=== PATIENT | female | born 1955 | race Hispanic/Latino ===

== ENCOUNTER 2016-10-15 10:21 | Outpatient (CLI) | payer OTHER | END 2016-10-15 10:22 | disposition home or self-care (01) | LOC: WCC 10:21 | PROVIDERS: ATTEND Family Medicine | DX: T81.89XD Other complications of procedures, not elsewhere classified, subsequent encounter (principal); Z89.421 Acquired absence of other right toe(s) | CPT/HCPCS: 97605 ==

== ENCOUNTER 2016-10-17 10:08 | Outpatient (CLI) | payer OTHER | END 2016-10-17 10:09 | disposition home or self-care (01) | LOC: WCC 10:08 | PROVIDERS: ATTEND Family Medicine | DX: T81.89XD Other complications of procedures, not elsewhere classified, subsequent encounter (principal); Z89.421 Acquired absence of other right toe(s) ==

== ENCOUNTER 2016-10-21 14:02 | Outpatient (CLI) | payer MEDICAID, OTHER | END 2016-10-21 14:03 | disposition home or self-care (01) | LOC: WCC 14:02 | PROVIDERS: ATTEND Family Medicine | DX: T81.89XD Other complications of procedures, not elsewhere classified, subsequent encounter (principal); T87.89 Other complications of amputation stump; Z89.421 Acquired absence of other right toe(s) | CPT/HCPCS: 97605 ==

== ENCOUNTER 2016-10-24 14:05 | Outpatient (CLI) | payer OTHER | END 2016-10-24 14:06 | disposition home or self-care (01) | LOC: WCC 14:05 | PROVIDERS: ATTEND Family Medicine | DX: T81.89XD Other complications of procedures, not elsewhere classified, subsequent encounter (principal); Z89.421 Acquired absence of other right toe(s) | CPT/HCPCS: 97605 ==

== ENCOUNTER 2016-10-28 14:04 | Outpatient (CLI) | payer OTHER ==
[~2016-10-28 14:04] MED LIST: Sodium Chloride 0.9% 15 ML NEB ONE
== END 2016-10-28 14:05 | disposition home or self-care (01) ==
LOC: WCC 14:04
PROVIDERS: ATTEND Family Medicine
DX: T81.89XD Other complications of procedures, not elsewhere classified, subsequent encounter (principal)
CPT/HCPCS: 97605; A4218

== ENCOUNTER 2016-10-31 14:31 | Outpatient (CLI) | payer MEDICAID, OTHER | END 2016-10-31 14:32 | disposition home or self-care (01) | LOC: WCC 14:31 | PROVIDERS: ATTEND Family Medicine | DX: T81.89XD Other complications of procedures, not elsewhere classified, subsequent encounter (principal); Z89.421 Acquired absence of other right toe(s) | CPT/HCPCS: 97605 ==

== ENCOUNTER 2016-11-04 14:06 | Outpatient (CLI) | payer OTHER ==
--- NOTE | 2016-11-04 16:09 | PRG ---
DATE OF SERVICE: 11/04/2016 HISTORY: Ms. Concepcion Cortez is a very pleasant 61-year-old who presents to the Wound Center for evalua tion of a wound of the right foot subsequent to amputation of the second, third, fourth, and fifth t oes and metatarsals on 09/06/[address] Ji Mclaughlin. Also at the time of surgery, the patient u nderwent wound VAC placement. Upon discharge from [facility], the patient wa s referred to the Wound Center for assistance with dressing changes of the wound VAC. The patient w as also discharged to home on Augmentin. PHYSICAL EXAMINATION: VITAL SIGNS: Temperature 98.3, pulse 90, respirations 18, blood pressure 181/81. Accu-Chek 219. EXTREMITIES: A wound of the right foot subsequent to amputation of the second, third, fourth, and f ifth toes and metatarsals is present. Granulation tissue is present within the wound margins. Nonv iable tissue present within the wound margins was debrided with an excisional full-thickness debride ment with the use of a curette. No purulent drainage is associated with the wound. No cellulitis o f the right foot is appreciated. No maceration of the skin of the periwound is noted. A posterior tibial pulse is easily palpable on the right. No significant edema of the right foot is present on exam today. No significant edema of the right foot is present on exam today. ASSESSMENT AND PLAN: 1. Right foot wound as described above, subsequent to amputation of the second, third, fourth, and fifth toes and metatarsals. Negative pressure therapy was initiated intraoperatively and will be co ntinued with dressing changes of the wound 2 times per week here in the Wound Center. I will see Ms Wong Cortez again in one week. 2. Diabetes mellitus. The patient's Accu-Chek in clinic today is 219. The patient has been remind ed that for optimal wound healing, her blood glucoses should remain below 150. 3. Hypertension.
== END 2016-11-04 14:07 | disposition home or self-care (01) ==
LOC: WCC 14:06
PROVIDERS: ATTEND Family Medicine
DX: T87.89 Other complications of amputation stump (principal); E11.9 Type 2 diabetes mellitus without complications; I10 Essential (primary) hypertension
CPT/HCPCS: 11042

== ENCOUNTER 2016-11-07 13:33 | Outpatient (CLI) | payer MEDICAID, OTHER | END 2016-11-07 13:34 | disposition home or self-care (01) | LOC: WCC 13:33 | PROVIDERS: ATTEND Family Medicine | DX: T87.89 Other complications of amputation stump (principal); Z89.421 Acquired absence of other right toe(s) | CPT/HCPCS: 97605 ==

== ENCOUNTER 2016-11-11 13:59 | Outpatient (CLI) | payer MEDICAID, OTHER ==
[2016-11-11] MEDS ORDERED: Sodium Chloride 0.9% 15 ML NEB ONE (16:57)
== END 2016-11-11 14:00 | disposition home or self-care (01) ==
LOC: WCC 13:59
PROVIDERS: ATTEND Family Medicine
DX: T81.89XD Other complications of procedures, not elsewhere classified, subsequent encounter (principal)
CPT/HCPCS: 97605; A4218

== ENCOUNTER 2016-11-14 14:32 | Outpatient (CLI) | payer OTHER ==
--- NOTE | 2016-11-14 15:56 | PRG ---
DATE OF SERVICE: 11/14/2016 HISTORY: Ms. Concepcion Cortez is a very pleasant 61-year-old who presents to the Wound Center for evalua tion of a wound of the right foot subsequent to amputation of the second, third, fourth, and fifth t oes and metatarsals on 09/06/[address] Ji Mclaughlin. Also at the time of surgery, the patient u nderwent wound VAC placement. Upon discharge from [facility], the patient wa s referred to the Wound Center for assistance with dressing changes of the wound VAC. The patient w as also discharged to home on Augmentin. PHYSICAL EXAMINATION: VITAL SIGNS: Temperature 97.4, pulse 97, respirations 18, blood pressure 138/81, Accu-Chek 205. EXTREMITIES: A wound of the right foot subsequent to amputation of the second, third, fourth, and f ifth toes and metatarsals is present. The dimensions of the wound are approximately 1.7 x 6.1 cm. Granulation tissue is present within the wound margins. Nonviable tissue present within the wound m argins was debrided with an excisional full-thickness debridement with the use of a curet. No purul ent drainage is associated with the wound. No cellulitis of the right foot is appreciated. No mace ration of the skin of the periwound is noted. A dorsalis pedis pulse is easily palpable on the righ t. No significant edema of the right foot is present on exam today. ASSESSMENT AND PLAN: 1. Right foot wound subsequent to amputation of the second, third, fourth, and fifth toes and metat arsals. Negative pressure therapy will be discontinued today. Dressing changes of Aquacel AG will be initiated. These dressing changes are to be performed 3 times per week after cleansing and irrig ation. A 4 x 4's, Kerlix, and an Miguel bandage will be utilized as secondary dressings. I will see Bhanu Cortez again in one week. The patient will be seen by Dr. Mclaughlin in 2 weeks. 2. Diabetes mellitus. The patient's Accu-Chek in clinic today is 205. The patient has been remind ed that for optimal wound healing, her blood glucoses should remain below 150. 4. Hypertension.
[2016-11-14] MEDS ORDERED: Lidocaine 4% Topical Sol 50 ML BOT ONE (16:25)
[2016-11-14] MEDS ORDERED: Sodium Chloride 0.9% 15 ML NEB ONE (16:25)
== END 2016-11-14 14:33 | disposition home or self-care (01) ==
LOC: WCC 14:32
PROVIDERS: ATTEND Family Medicine
DX: T81.89XD Other complications of procedures, not elsewhere classified, subsequent encounter (principal); E11.9 Type 2 diabetes mellitus without complications; I10 Essential (primary) hypertension; Z89.421 Acquired absence of other right toe(s)
CPT/HCPCS: 11042; A4218; J2001

== ENCOUNTER 2016-11-21 14:51 | Outpatient (CLI) | payer MEDICAID | END 2016-11-21 14:52 | disposition home or self-care (01) | LOC: LABBT 14:51 | PROVIDERS: ATTEND Specialist | DX: Z01.812 Encounter for preprocedural laboratory examination (principal); E11.621 Type 2 diabetes mellitus with foot ulcer; M86.8X7 Other osteomyelitis, ankle and foot ==

== ENCOUNTER 2016-11-22 17:46 | Emergency (ER) | payer MEDICAID | END 2016-11-22 21:19 | disposition home or self-care (01) | LOC: ERS 17:46 | DX: Z48.817 Encounter for surgical aftercare following surgery on the skin and subcutaneous tissue (principal); Z48.01 Encounter for change or removal of surgical wound dressing; F32.9 Major depressive disorder, single episode, unspecified; F41.9 Anxiety disorder, unspecified; I10 Essential (primary) hypertension; E11.9 Type 2 diabetes mellitus without complications; Z79.4 Long term (current) use of insulin; Z79.82 Long term (current) use of aspirin | CPT/HCPCS: 99282 ==

== ENCOUNTER → 2016-11-22 | Day surgery (SDC) | payer MEDICAID ==
[2016-11-21 15:36] VITALS: BMI 33.5
[~2016-11-22] MED LIST changes: +Fentanyl 100 MCG/2 ML VIAL ONE; +Midazolam HCl 2 mg/2 ml Vial ONE; +Piperacillin/Tazobactam 3.375 GM in Sodium Chloride 0.9% 100 ML IVPB SCH; +Propofol 500 MG/50 ML VIAL ONE; -Sodium Chloride 0.9% 15 ML NEB ONE
--- NOTE | 2016-11-22 06:16 | HP ---
HISTORY OF PRESENT ILLNESS: Concepcion Cortez is a 61-year-old female, diabetic, who I am seeing f or right foot problem in outpatient wound care [facility]. She has had a wound VAC, which has bee n discontinued. She had amputation of her second, third, fourth and fifth toes and metatarsals on 0 09/05/2016 due to a necrotizing diabetic soft tissue infection. This wound is almost completely heal ed. She has developed an ulceration of her left fifth toe laterally. This ulceration evaluated tovalorie potts in wound care. It reveals that extends out of the bone. The toe is edematous and red. The fore foot is normal. Plan is for amputation of the left fifth toe to the proximal phalanx left open for healing by secondary intention. She has a wound VAC from right foot still available for [facility]. We will apply that to her left foot, and I expect that she will need this for 1 to 2 weeks and the n we will be able to discontinue it. ALLERGIES: CODEINE. PAST SURGICAL HISTORY: Right breast biopsy; cholecystectomy; left breast biopsy; right and left eye surgeries, 9 childbirth, partial amputation right foot toes 2, 3, 4 and 5 and metatarsals as noted above healed secondarily and was completely healed. No evidence of PAD. PAST MEDICAL HISTORY: Insulin-dependent diabetes mellitus, hypertension, obesity, and metabolic syn drome. MEDICATIONS: Levemir insulin 60 units subcutaneously a day, metformin 1000 mg twice daily, fluoxeti ne 20 mg once a day, aspirin 81 mg a day, quinapril 20/25 mg once a day, Ultram p.r.n. pain, amlodip ine 10 mg a day. The patient followed by [facility]. REVIEW OF SYSTEMS: Noncontributory. PHYSICAL EXAMINATION: HEENT: Unremarkable. LUNGS: Clear to auscultation. CARDIAC: Regular rate and rhythm without murmur or gallop. ABDOMEN: Soft, nontender, no masses, obese. EXTREMITIES: Unremarkable. Palpable femoral, popliteal and pedal pulses. She has chronic venous s tasis disease with varicosities. She has palpable pedal pulses. Right foot wound is almost complet sabino healed with slight amount of granulation tissue superiorly. She has good foot coverage. She [place] s had amputation of second, third, fourth, and fifth toes and metatarsals. No evidence of infection . Left foot reveals left fifth toe laterally has ulceration to the bone. On probe by Q-tip, it is red , swollen, and edematous. ASSESSMENT AND PLAN: 1. Cellulitis, diabetic infection, left small toe with osteomyelitis. Plan: Amputation of the left small toe through the proximal phalanx. Wound VAC application. The patient understands the risks and benefits and consents. She will continue wound care postoperatively. 2. Insulin dependent diabetes mellitus. 3. Hypertension.
[2016-11-22 10:06] LABS: #Eosinphils 0.2 thou/uL (0.0-0.7); #Lymphocytes 2.3 thou/uL (1.20-3.40); #Monocytes 0.7 thou/uL (0.11-0.59); #Neutrophils 5.3 thou/uL (1.40-6.50); %Basophils 0.5 % (0.0-1.0); %Eosinophils 2.1 % (0.0-10.0); %Lymphocytes 27.1 % (21.0-51.0); %Monocytes 8.6 % (0.0-10.0); Hematocrit 35.7 % (36.0-47.0); Mean Platelet Volume 7.6 fL (7.4-10.4); Red Blood Cell (RBC) Count 3.93 mill/uL (4.20-5.40); White Blood Cell (WBC) Count 8.6 thou/uL (4.8-10.8)
[2016-11-22 10:28] LABS: Anion Gap 14 mmol/L (10-20); BUN (Urea Nitrogen) 25 mg/dL (9.8-20.1); Calc. Creatinine Clearance 63 mL/min (70-130); Calcium 9.6 mg/dL (7.8-10.44); Carbon Dioxide 22 mmol/L (23-31); Chloride 108 mmol/L (98-107); Estimated GFR-MDRD 46
--- NOTE | 2016-11-22 13:45 | OP ---
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 PROCEDURE PERFORMED: Amputation of left small toe through the proximal phalanx. Wound healing by s econdary intention. Wound care team placed a wound VAC for outpatient Wound Care. SURGEON: Ji Mclaughlin M.D. ANESTHESIA: Intravenous sedation. PROCEDURE IN DETAIL: The patient taken to the operating room where under intravenous sedation, left lower extremity was prepared with chloraprep, draped in routine fashion. Incision was made for amp utation of left small toe through the proximal phalanx with a fishmouth type incision. Incision car ried through skin and subcutaneous tissue with a 15 blade scalpel, with the bone resected with the b one cutter and proximally with the rongeurs, debriding connective tissue sharply. Hemostasis gained with the cautery. There was excellent bleeding. Wound irrigated, hemostasis noted. Wound care te am arrived and placed a wound VAC. The patient tolerated the procedure well.
== END ==
LOC: SDC 09:07
PROVIDERS: ATTEND Specialist
PROC: 0QBR0ZZ Excision of Left Toe Phalanx, Open Approach (ICD-10-PCS; principal; 2016-11-22)
DX: E11.621 Type 2 diabetes mellitus with foot ulcer (principal); L97.526 Non-pressure chronic ulcer of other part of left foot with bone involvement without evidence of necrosis; E11.40 Type 2 diabetes mellitus with diabetic neuropathy, unspecified; I10 Essential (primary) hypertension; E66.9 Obesity, unspecified; Z68.33 Body mass index [BMI] 33.0-33.9, adult; Z88.5 Allergy status to narcotic agent; Z79.4 Long term (current) use of insulin; Z79.82 Long term (current) use of aspirin; Z79.899 Other long term (current) drug therapy; Z90.49 Acquired absence of other specified parts of digestive tract; Z89.411 Acquired absence of right great toe; Z98.890 Other specified postprocedural states
CPT/HCPCS: 36415; 80048; 85025; 88305; J2250; J2543; J2704; J3010; J3370; J7050

== ENCOUNTER 2016-11-25 14:06 | Outpatient (CLI) | payer MEDICAID | END 2016-11-25 14:07 | disposition home or self-care (01) | LOC: WCC 14:06 | PROVIDERS: ATTEND Family Medicine | DX: T87.89 Other complications of amputation stump (principal); Z89.411 Acquired absence of right great toe; Z89.421 Acquired absence of other right toe(s) | CPT/HCPCS: 97605 ==

== ENCOUNTER 2016-11-28 11:07 | Outpatient (CLI) | payer MEDICAID | END 2016-11-28 11:08 | disposition home or self-care (01) | LOC: WCC 11:07 | PROVIDERS: ATTEND Family Medicine | DX: T81.89XD Other complications of procedures, not elsewhere classified, subsequent encounter (principal); Z89.421 Acquired absence of other right toe(s) | CPT/HCPCS: 97605 ==

== ENCOUNTER 2016-12-02 11:16 | Outpatient (CLI) | payer MEDICAID ==
--- NOTE | 2016-12-02 11:56 | PRG ---
DATE OF SERVICE: 12/02/2016 WOUND EVALUATION IN WOUND CARE CLINIC Concepcion Cortez is doing well today. The amputation site for the left fifth toe is granulating. Wou nd VAC is discontinued, silver dressings applied. She can wash this with soap and water every 2-3 d ays and apply silver dressing. She can follow up in my office in about 1-2 weeks. The right foot h as almost healed in addition. She has a small wound.
== END 2016-12-02 11:17 | disposition home or self-care (01) ==
LOC: WCC 11:16
PROVIDERS: ATTEND Family Medicine
DX: T81.89XD Other complications of procedures, not elsewhere classified, subsequent encounter (principal); Z89.422 Acquired absence of other left toe(s)
CPT/HCPCS: 97602

== ENCOUNTER 2016-12-12 14:48 | Outpatient (CLI) | payer MEDICAID, OTHER ==
--- NOTE | 2016-12-12 17:07 | PRG ---
DATE OF SERVICE: 12/12/2016 HISTORY: Ms. Concepcion Cortez is a very pleasant 61-year-old who presents to the Wound Center for evaluation of a wound of the right foot subsequent to amputation of the second, third, fourth, and fifth toes and metatarsals on 09/[address] Ji Mclaughlin. Also at the time of surgery, the patient underwent wound VAC placement. Upon discharge from [facility], the patient was referred to the Wound Center for assistance with dressing changes of the wound VAC. The patient was also discharged to home on Augmentin. Ms. Cortez has completed a course of negative pressure therapy for her right foot wound. She is presently performing dressing changes of Aquacel AG 3 times per week after cleansing and irrigation. PHYSICAL EXAMINATION: VITAL SIGNS: Temperature 97.7, pulse 106, respirations 18, blood pressure 185/ 86. Accu-Chek 88. EXTREMITIES: A wound of the right foot subsequent to amputation of the second, third, fourth, and fifth toes and metatarsals is present. The dimensions of the wound are approximately 8.8 x 0.3 cm. Nonviable tissue present within the wound margins was debrided with an excisional full-thickness debridement with the use of a curette. Callus and desiccated tissue at the periphery of the wound were eliminated with the use of scissors. No purulent drainage is associated with the wound. No cellulitis of the right foot is appreciated. No maceration of the skin of the periwound is noted. A dorsalis pedis pulse is easily palpable on the right. No significant edema of the right foot is present on exam today. ASSESSMENT AND PLAN: 1. Right foot wound subsequent to amputation of the second, third, fourth, and fifth toes and metatarsals. Dressing changes of Aquacel AG will be continued 3 times per week or alternatively on a daily basis after cleansing and irrigation. 4 x 4s and Kerlix will be utilized as secondary dressings. The wound has almost healed completely, and Ms. Cortez will be discharged from clinic today with follow up on a p.r.n. basis. 2. Diabetes mellitus. The patient's Accu-Chek in clinic today is 88. The patient has been reminded that for optimal wound healing, her blood glucoses should remain below 150. 3. Hypertension. MTDD
== END 2016-12-12 14:49 | disposition home or self-care (01) ==
LOC: WCC 14:48
PROVIDERS: ATTEND Family Medicine
DX: T81.89XD Other complications of procedures, not elsewhere classified, subsequent encounter (principal); E11.9 Type 2 diabetes mellitus without complications; I10 Essential (primary) hypertension
CPT/HCPCS: 11042

== ENCOUNTER 2018-11-13 12:17 | Outpatient (CLI) | payer MEDICARE ==
--- NOTE | 2018-11-13 13:34 | MMO ---
Bilateral MAMMO Bilat Screen [facility]. CLINICAL HISTORY: Patient is 63 years old and is seen for screening. The patient has no family history of breast cancer. The patient has no personal history of cancer. The patient has a history of bilateral Excisional Biopsy in 2000 - benign. VIEWS: The views performed were: bilateral craniocaudal with tomosynthesis and bilateral mediolateral oblique with tomosynthesis. FILMS COMPARED: The present examination has been compared to prior imaging studies performed at [facility] on 05/11/2002, 01/10/2006, 01/07/2007 and 11/28/2009. This study has been interpreted with the assistance of computer-aided detection. MAMMOGRAM FINDINGS: There are scattered fibroglandular densities. Finding 1: There are stable benign appearing calcifications seen in both breasts. Finding 2: There are stable benign appearing densities seen in both breasts. There are no suspicious masses, suspicious calcifications, or new areas of architectural distortion. IMPRESSION: THERE IS NO MAMMOGRAPHIC EVIDENCE OF MALIGNANCY. A ROUTINE FOLLOW-UP MAMMOGRAM IN 1 YEAR IS RECOMMENDED. THE RESULTS OF THIS EXAM WERE SENT TO THE PATIENT. ACR BI-RADS Category 2 - Benign finding MAMMOGRAPHY NOTE: 1. A negative mammogram report should not delay a biopsy if a dominant of clinically suspicious mass is present. 2. Approximately 10% to 15% of breast cancers are not detected by mammography. 3. Adenosis and dense breasts may obscure an underlying neoplasm. Reported by: MOISES HERNANDEZ MD Electonically Signed: [id number]
== END 2018-11-13 12:18 | disposition home or self-care (01) ==
LOC: BICMAMMO 12:17
PROVIDERS: ATTEND Nurse Practitioner Family
DX: Z12.31 Encounter for screening mammogram for malignant neoplasm of breast (principal); Z91.89 Other specified personal risk factors, not elsewhere classified
CPT/HCPCS: 77063; 77067

== ENCOUNTER 2019-10-21 02:17 | Inpatient (IN) | payer MEDICARE, OTHER ==
[2019-10-21] MEDS ORDERED: Cefepime 2 GM VIAL ONE (02:33)
[2019-10-21] MEDS ORDERED: Vancomycin 1 GM/200 ML BAG ONE (02:33)
[2019-10-21 02:51] LABS: Hemoglobin 10.8 g/dL (12.0-16.0); Mean Corpuscular HGB CONC 28.3 g/dL (32.0-36.0); Mean Corpuscular Hemoglobin 26.6 pg (27.0-31.0); Mean Platelet Volume 8.4 fL (7.4-10.4); Platelet Count 621 thou/uL (130-400); RBC Distribution Width 13.8 % (11.5-14.5); Red Blood Cell (RBC) Count 4.06 mill/uL (4.20-5.40); White Blood Cell (WBC) Count 24.4 thou/uL (4.8-10.8)
[2019-10-21 03:01] LABS: ALT (SGPT) 16 U/L (8-55); AST (SGOT) 51 U/L (5-34); Albumin 2.6 g/dL (3.4-4.8); Alkaline Phosphatase 211 U/L (40-110); Anion Gap 21 mmol/L (10-20); BUN (Urea Nitrogen) 36 mg/dL (9.8-20.1); Bilirubin, Total 0.7 mg/dL (0.2-1.2); Calc. Creatinine Clearance 0 mL/min (70-130); Calcium 9.7 mg/dL (7.8-10.44); Carbon Dioxide 23 mmol/L (23-31); Chloride 97 mmol/L (98-107); Estimated GFR-MDRD 23; Globulin 6.6 g/dL (2.4-3.5); Potassium 4.6 mmol/L (3.5-5.1); Protein, Total 9.2 g/dL (6.0-8.3); Sodium 136 mmol/L (136-145)
[2019-10-21 03:10] LABS: Band 1 % (5-11); Hypochromia SLIGHT = 6-15 cells (100X) (0-5/hpf); Lymphocytes 4 % (21-51); MDiff Complete? YES; Monocytes 6 % (0-10); Neutrophil 89 % (42-75); Platelet Morphology Comment Appears Increased
[2019-10-21 03:16] LABS: Glucose 796 mg/dL (80-115)
[2019-10-21 03:40] LABS: Bacteria/HPF 3+ HPF (None Seen); Bilirubin Negative (Negative); Blood, Urine Trace (Negative); Clarity Turbid (Clear); Glucose, Urine (Dipstick) Greater than 1000 mg/dL (Negative); Ketone, Urine Trace mg/dL (Negative); Leukocyte Negative Leu/uL (Negative); Nitrite Negative (Negative); Protein, Urine (Dipstick) 30 mg/dL (Neg-Trace); RBC/HPF 0-3 HPF (0-3); Specific Gravity, Urine 1.025 (1.002-1.036); Squamous Epithelial 0-3 HPF (0-3); Urobilinogen Normal mg/dL (Less than 2); WBC/HPF 0-3 HPF (0-3); pH, Urine 5.5 (5.0-9.0)
[2019-10-21] MEDS ORDERED: HumaLOG 300 UNITS/3 ML VIAL ONE (04:31)
[2019-10-21] MEDS ORDERED: Insulin Regular 300 UNITS/3 ML VIAL ONE (04:36)
[2019-10-21] MEDS ORDERED: HUMULIN R 100 UNITS in Sodium Chloride 0.9% 100 ML IVPB SCH ×2 (04:45→06:30)
[2019-10-21] MEDS ORDERED: Fentanyl 100 MCG/2 ML VIAL ONE (04:52)
[2019-10-21] MEDS ORDERED: Lidocaine 2% Jelly 5 ML TUBE ONE (04:52)
[2019-10-21] MEDS ORDERED: SUGAMMADEX SODIUM 500 MG/5 ML VIAL ONE (05:46)
[2019-10-21] MEDS ORDERED: Promethazine HCl 25 MG/ML VIAL IM PRN (06:00)
[2019-10-21] MEDS ORDERED: Promethazine HCl 25 MG/ML VIAL SLOW IVP PRN (06:00)
[2019-10-21] MEDS ORDERED: Ondansetron HCl/PF 4 MG/2 ML Vial IVP PRN (06:00)
[2019-10-21] MEDS ORDERED: NS 0.9% w/ 20 MEQ KCL 1,000 ML IV PRN ×2 (06:28)
[2019-10-21] MEDS ORDERED: Electrolyte Replacement Protoc 1 EACH EACH IVPB PRN (06:28)
[2019-10-21] MEDS ORDERED: Sodium Chloride 0.9% 1,000 ML IV PRN ×4 (06:28)
[2019-10-21] MEDS ORDERED: Dextrose 5 %-0.45 % NaCl 1,000 ML IV PRN (06:28)
[2019-10-21] MEDS ORDERED: D5 1/2 NS w/20 mEq KCL 1,000 ML IV PRN (06:28)
[2019-10-21] MEDS ORDERED: cloNIDine 0.1 MG TAB PO PRN (06:29)
[2019-10-21] MEDS ORDERED: Acetaminophen 325 MG TAB PO PRN (06:29)
[2019-10-21] MEDS ORDERED: Promethazine HCl 12.5 MG in Sodium Chloride 0.9% 50 ML IVPB PRN (06:29)
[2019-10-21] MEDS ORDERED: [UNRECOGNIZED DRUG - REMARK] IVPB PRN (06:29)
[2019-10-21] MEDS ORDERED: Guaifenesin DM 100-10/5 ML UDCUP PO PRN (06:29)
[2019-10-21] MEDS ORDERED: Morphine 2 MG/ML VIAL SLOW IVP PRN (06:29)
[2019-10-21] MEDS ORDERED: HYDROcodone/Acetaminophen 5/325 mg Tablet PO PRN (06:29)
[2019-10-21] MEDS ORDERED: Ondansetron PF 4 MG/2 ML Vial IVP PRN (06:29)
[2019-10-21] MEDS ORDERED: Labetalol HCl 100 MG/20 ML VIAL SLOW IVP PRN (06:29)
--- NOTE | 2019-10-21 06:29 | CON ---
DATE OF CONSULTATION: REASON FOR CONSULT: Sepsis with wet gangrene of the left foot. HISTORY OF PRESENT ILLNESS: Ms. Cortez is a 64-year-old diabetic woman, who was brought by EMS to the hospital after her daughter called due to worsening infection and pain in her left foot. The patient is unable to give a reliable history, but the family reports that she has been sick and unable to walk for at least the past week. Her daughter reports that when she saw her last week, her blood sugars were in the 400s and she urged her to come to the hospital, but her mother refused at that time. When her other daughter came to visit her tonight, the patient appeared much worse, so they called EMS to come get her. The patient herself is able to tell me who she is and where she is and even what day and month it is, but she is unable to tell me exactly how long she has had discoloration and pain in her foot. She had obvious wet gangrene on examination in the emergency room as well as signs of sepsis, so a surgical consultation was requested. Her daughter reports that she has not been taking her medications as prescribed and that she has a long history of noncompliance with dietary and medication recommendations. The patient herself denies any fevers or chills and complains only of pain and drainage from her left foot. PAST MEDICAL HISTORY: 1. Diabetes, chronically uncontrolled and acutely worse. 2. Hypertension. 3. The patient reports that she has had a stroke in the past, but denies any history of heart attack or heart failure or arrhythmia. PAST SURGICAL HISTORY: Open cholecystectomy and cataract surgery. Multiple toe amputations by Dr. Mclaughlin including the left small toe and 2nd, 3rd, 4th and 5th toes on the right. SOCIAL HISTORY: The patient denies tobacco, drug, or alcohol use. She lives with her and her granddaughter. ALLERGIES: THE PATIENT DENIES ANY ALLERGIES, BUT THE CHART LISTS A RASH WITH CODEINE. MEDICATIONS: She is unable to tell me most of her medications, but states that she takes 1. Metformin. 2. NovoLog and insulin. 3. She thinks she is on a blood thinner, but is unable to tell me which one. The family reports that she has not been taking any of her medications recently, however. REVIEW OF SYSTEMS: Ten system review of systems is limited due to the patient's delirium. She is somewhat inconsistent in her report, but she does consistently deny fevers or chills, chest pain, cough, or shortness of breath. Review of systems is otherwise negative except per HPI. PHYSICAL EXAMINATION: VITAL SIGNS: Temperature 98.7, heart rate 106, blood pressure 165/92, respirations 23, 98% saturated on room air. GENERAL: Reveals a flushed, ill-appearing woman in moderate distress, moving around in the bed and having difficulty focusing on the conversation. She is oriented to self, place, and time and situation, but is unable to answer complex questions. HEENT: Unremarkable. NECK: Supple without lymphadenopathy or thyroid nodules. Extraocular movements are normal and symmetric. Facial movement is symmetric. HEART: Tachycardic, but regular. I do not appreciate any murmurs, rubs, or gallops. LUNGS: Are clear to auscultation bilaterally with good air entry. ABDOMEN: Soft, nontender, nondistended with a healed right subcostal incision. EXTREMITIES: Warm and well perfused. The patient is unable to tolerate palpation of her left foot, though pedal pulses could not be appreciated. She is also moving about in the bed quite a bit, so popliteal and femoral pulses are somewhat difficult to palpate but appear to be present. Her left foot has gangrene of multiple toes, first through third, with gangrene extending onto the plantar forefoot, boggy, very tender, with open draining wound and odor. The remaining foot is red and swollen. However, she does not have any crepitus above the ankle and no tenderness to palpation at the ankle or calf. NEURO: Limited due to patient's mental status, but appears to have intact sensation to all four extremities. She has healed amputation sites on the right and left foot. PSYCHIATRIC: Alert and oriented but unable to give a consistent recent history. LABORATORY DATA: White count is markedly elevated at 24,000 with a left shift. Platelets are also elevated at 621. Hemoglobin of 10.8 and hematocrit of 38.2. Creatinine is elevated at 2.12. She appears to have chronic mild elevation of her creatinine in the low 1s in 2017, but more recent labs are not available. BUN is elevated at 36. Electrolytes are otherwise unremarkable. Alkaline phosphatase is elevated at 211 and AST is mildly elevated at 51. Lactic acid is elevated at 3.6, and C-reactive protein is elevated at 35.44. Troponin is normal at 0.024. Blood sugar was 796 and urine glucose was greater than a 1000 with only trace ketones. Beta hydroxybutyrate was elevated at 1.97. ASSESSMENT: Wet gangrene causing sepsis and delirium in an uncontrolled diabetic patient. She is going to be admitted to the Medicine Service for management of her uncontrolled hyperglycemia and acute renal insufficiency, but she does require emergent amputation of her left foot. Due to the uncontrolled infection, I plan to perform a guillotine amputation to clear the source of infection with plans to return at a later day when she is more clinically stable to perform a closed below-knee amputation. The patient understands the situation and the recommendation for surgery and is willing to proceed. I have also discussed the situation with her daughter who is in the car in the parking lot, and she has given verbal consent as well on her behalf and on behalf of the patient's , her father. All of their questions were answered. She is going to be continued on IV antibiotics and an insulin drip. The family is going to obtain a medication list for us later today, although theyreport the patient has not been taking these as prescribed. Job ID: [id number] [facility]
[2019-10-21] MEDS ORDERED: Electrolyte Replacement Protoc 1 EACH EACH FS SCH (06:30)
--- NOTE | 2019-10-21 06:42 | PDOC.HHP ---
Hospitalist HPI - History of Present Illness L foot wound History of Present Illness: Patient is a 64 year old male with PMH DM, HTN who presents to ED for fall at home, L foot wound with change in appearance, family noticed changes in patient for about a week. There was gangrene and drainage from L foot, patient has had R BKA previously. In ED, severe necrosis noted in L 1-3rd toes, concerning enough to have emergent surgery consult, Dr Ortiz evaluated patient and took for emergency amputation. I am seeing patient in [facility] after guillotine amputation. Labs in ED were concerning for sugar in 700s, anion gap 21, Cr 2.12 , WBC 24, ;lactic acid 3.6. Patinet was presumed to be in [facility] vs DKA, started on insulin drip intraoperatively and given broad spectrum antibiotics, I am asked to admit patient from [facility] for DKA and sepsis s/p L foot amputation. Dr Ortiz plans to take patient back for second surgery once more medically stable. Patient is calm, making jokes, no pain. Denies chest pain/shortness of breath. Hospitalist ROS - Review of Systems Constitutional: denies: fever, chills, sweats, weakness, malaise, other Eyes: denies: pain, vision change, conjunctivae inflammation, eyelid inflammation, redness, other ENT: denies: ear pain, ear discharge, nose pain, nose discharge, nose congestion , mouth pain, mouth swelling, throat pain, throat swelling, other Respiratory: denies: cough, dry, shortness of breath, hemoptysis, SOB with excertion, pleuritic pain, sputum, wheezing, other Cardiovascular: denies: chest pain, palpitations, orthopnea, paroxysmal noc. dyspnea, edema, light headedness, other Gastrointestinal: denies: nausea, vomiting, abdominal pain, diarrhea, constipation, melena, hematochezia, other Genitourinary: denies: dysuria, frequency, incontinence, hematuria, retention, other Musculoskeletal: reports: foot pain (see HPI). denies: neck pain, shoulder pain , arm pain, back pain, hand pain, leg pain, other Skin: denies: rash, lesions, taco, bruising, other Neurological: denies: weakness, numbness, incoordination, change in speech, confusion, seizures, other All other systems reviewed; all pertinent +/- noted in HPI/Subj - Medication Medications: reviewed, see admission documents for list Hospitalist History - Past Medical History Other Medical History: DM, HTN - Past Surgical History Past Surgical History: reports: Cholecystectomy Other Surgical History: R partial foot amputation - Family History Family History: reports: no pertinent history - Social History Alcohol: reports: None Drugs: reports: none - Exam General Appearance: NAD, awake alert Eye: PERRL, anicteric sclera ENT: normocephalic atraumatic, no oropharyngeal lesions, moist mucosa Neck: supple, symmetric, no JVD, no thyromegaly, no lymphadenopathy, no carotid bruit Heart: RRR, no murmur, no gallops, no rubs, normal peripheral pulses Respiratory: CTAB, no wheezes, no rales, no ronchi, normal chest expansion, no tachypnea, normal percussion Gastrointestinal: soft, non-tender, non-distended, normal bowel sounds, no palpable masses, no hepatomegaly, no splenomegaly, no bruit Extremities: no cyanosis, no clubbing, no edema Extremities - other findings: R foot old foot amputation, L foot surgical dressing Skin: normal turgor, no lesions, no rashes Neurological: cranial nerve grossly intact, normal sensation to touch, no weakness, no focal deficits, no new deficit Musculoskeletal: normal tone, normal strength, no muscle wasting Psychiatric: normal affect, normal behavior, A&O x 3 Hospitalist Results - Labs Result Diagrams: 10/21/19 02:30 10/21/19 02:30 Lab results: WBC 24.4 thou/uL (4.8-10.8) H 10/21/19 02:30 Hgb 10.8 g/dL (12.0-16.0) L 10/21/19 02:30 Hct 38.2 % (36.0-47.0) 10/21/19 02:30 MCV 94.0 fL (78.0-98.0) 10/21/19 02:30 Plt Count 621 thou/uL (130-400) H 10/21/19 02:30 Band Neuts % (Manual) 1 % (5-11) L 10/21/19 02:30 ESR Westergren 59 mm/hr (Less than 30) 10/21/19 02:30 Sodium 136 mmol/L (136-145) 10/21/19 02:30 Potassium 4.6 mmol/L (3.5-5.1) 10/21/19 02:30 Chloride 97 mmol/L (98-107) L 10/21/19 02:30 Carbon Dioxide 23 mmol/L (23-31) 10/21/19 02:30 BUN 36 mg/dL (9.8-20.1) H 10/21/19 02:30 Creatinine 2.12 mg/dL (0.6-1.1) H 10/21/19 02:30 Glucose 796 mg/dL (80-115) H* 10/21/19 02:30 Lactic Acid 3.6 mmol/L (0.5-2.2) H 10/21/19 02:30 Calcium 9.7 mg/dL (7.8-10.44) 10/21/19 02:30 Total Bilirubin 0.7 mg/dL (0.2-1.2) 10/21/19 02:30 AST 51 U/L (5-34) H 10/21/19 02:30 ALT 16 U/L (8-55) 10/21/19 02:30 Alkaline Phosphatase 211 U/L (40-110) H 10/21/19 02:30 Troponin I 0.024 ng/mL (< 0.028) 10/21/19 02:42 C-Reactive Protein 35.44 mg/dL (= or < 0.5) H 10/21/19 02:30 Serum Total Protein 9.2 g/dL (6.0-8.3) H 10/21/19 02:30 Albumin 2.6 g/dL (3.4-4.8) L 10/21/19 02:30 Urine Ketones Trace mg/dL (Negative) A 10/21/19 03:05 Urine Blood Trace (Negative) A 10/21/19 03:05 Urine Nitrite Negative (Negative) 10/21/19 03:05 Ur Leukocyte Esterase Negative Randal/uL (Negative) 10/21/19 03:05 Urine RBC 0-3 HPF (0-3) 10/21/19 03:05 Urine WBC 0-3 HPF (0-3) 10/21/19 03:05 Ur Squamous Epith Cells 0-3 HPF (0-3) 10/21/19 03:05 Urine Bacteria 3+ HPF (None Seen) A 10/21/19 03:05 Additional comment: all labs, imaging reports, ED documents reviewed Hospitalist H&P A/P - Plan Plan: Patient is a 64 year old male with PMH DM, HTN who presents to ED for fall at home, L foot wound with change in appearance. # L foot gangrene s/p amputation by Dr Ortiz # sepsis # DKA # history of HTN, anxiety, depression Gangrene of L foot, Dr Ortiz evaluated patient in ED and took for emergency amputation. Labs in ED were concerning for sugar in 700s, anion gap 21, Cr 2.12 , WBC 24, lactic acid 3.6. Patinet was presumed to be in [facility]HS vs DKA, started on insulin drip intraoperatively and given broad spectrum antibiotics. Dr Ortiz plans to take patient back for second surgery once more medically stable. - admit to CCU - inslin drip protocol - consult vanc/zosyn - follow culture results - consult pulmonary/CC medicine
--- NOTE | 2019-10-21 07:17 | RAD ---
LEFT FOOT 2 VIEWS: Date: 10/21/2019 INDICATION: Diabetic female with history of right foot amputation, now with new left foot infection. FINDINGS: There is extensive soft tissue gas within the plantar and dorsal aspects of the forefoot. There is pa rtial ray amputation of the fifth digit through its proximal phalanx. There is scattered osteoarthrit ic change of the forefoot and midfoot. Enthesopathic change seen off the calcaneus. There is a transv ersely oriented fracture involving the distal phalanx of the great toe. IMPRESSION: 1. Extensive soft tissue gas of the forefoot suspicious for soft tissue infection. 2. Minimally displaced distal phalangeal fracture of the left great toe. 3. Partial ray amputation of the small digit through the proximal phalangeal base. POS: BH
[2019-10-21] MEDS ORDERED: Amlodipine 10 MG TAB PO SCH (09:00)
[2019-10-21 09:03] LABS: Lactic Acid 3.8 mmol/L (0.5-2.2)
[2019-10-21 09:04] VITALS: BMI 30.6
[2019-10-21 09:11] LABS: Anion Gap 15 mmol/L (10-20); BUN (Urea Nitrogen) 33 mg/dL (9.8-20.1); Calc. Creatinine Clearance 44 mL/min (70-130); Calcium 8.7 mg/dL (7.8-10.44); Carbon Dioxide 21 mmol/L (23-31); Chloride 111 mmol/L (98-107); Estimated GFR-MDRD 36; Glucose 204 mg/dL (80-115); Potassium 3.6 mmol/L (3.5-5.1); Sodium 143 mmol/L (136-145)
[2019-10-21] MEDS ORDERED: PHENYLEPHRINE-NS 100 MCG/ML 10 ML SYRINGE ONE (10:12)
[2019-10-21] MEDS ORDERED: Ondansetron PF 4 MG/2 ML Vial ONE (10:12)
[2019-10-21] MEDS ORDERED: Lidocaine 1% PF 5 ML VIAL ONE (10:12)
[2019-10-21] MEDS ORDERED: Rocuronium Bromide 10 MG/ML (10ML VIAL) ONE (10:12)
[2019-10-21] MEDS ORDERED: PROPOFOL 200 MG/20 ML VIAL ONE (10:12)
[2019-10-21] MEDS: Famotidine 20 MG TAB PO SCH (10:20)
[2019-10-21] MEDS: FLUoxetine HCl 10 MG CAP PO SCH (10:22)
[2019-10-21] MEDS: Heparin 5,000 UNITS/ML VIAL SC SCH ×3 (10:23→20:37)
[2019-10-21] MEDS: Sodium Chloride 0.9% 1,000 ML IV SCH ×2 (10:42→18:02)
[2019-10-21] MEDS ORDERED: Dextrose 5% in Water 1,000 ML IV PRN (11:35)
[2019-10-21] MEDS ORDERED: Dextrose 50% Abboject 50 ML SYRINGE IVP PRN (11:35)
[2019-10-21] MEDS: Piperacillin/Tazobactam 3.375 GM in Sodium Chloride 0.9% 100 ML IVPB SCH ×3 (12:19→23:54)
[2019-10-21] MEDS: Insulin Regular 300 UNITS/3 ML VIAL SC PRN ×3 (12:37→20:38)
[2019-10-21 15:04] LABS: Anion Gap 14 mmol/L (10-20); BUN (Urea Nitrogen) 32 mg/dL (9.8-20.1); Calc. Creatinine Clearance 54 mL/min (70-130); Calcium 7.9 mg/dL (7.8-10.44); Carbon Dioxide 19 mmol/L (23-31); Chloride 114 mmol/L (98-107); Estimated GFR-MDRD 45; Glucose 263 mg/dL (80-115); Sodium 143 mmol/L (136-145)
--- NOTE | 2019-10-21 15:27 | PDOC.GSPN ---
Surgery Progress Note: Subj - Subjective Narrative: Patient is feeling much better today. She is not complaining of any pain at her amputation site. Vital signs are good and her blood sugars are much improved. She is off the insulin drip. Her dressing looks okay. Dr. Shane is her established surgeon and he is going to be assuming care and will perform her below-knee amputation when she is medically appropriate to undergo this. Surgery Progress Note: Obj - Vital signs Vital signs: Vital Signs - Most Recent Temp Pulse Resp BP Pulse Ox 98.1 F 99 10/21/19 13:00 10/21/19 08:55 Surgery Progress Note: Results - Labs Result Diagrams: 10/21/19 02:30 10/21/19 14:35 Lab results: Laboratory Results - last 24 hr 10/21/19 10/21/19 10/21/19 02:42 02:42 03:05 Sodium Potassium Chloride Carbon Dioxide Anion Gap BUN Creatinine Estimated GFR (MDRD) Glucose POC Glucose Lactic Acid Calcium Troponin I 0.024 Urine Color Yellow Urine Clarity Turbid A Urine pH 5.5 Ur Specific [place] 1.025 Urine Protein 30 A Urine Glucose (UA) Greater than 1000 A Urine Ketones Trace A Urine Blood Trace A Urine Nitrite Negative Urine Bilirubin Negative Urine Urobilinogen Normal Ur Leukocyte Esterase Negative Urine RBC 0-3 Urine WBC 0-3 Ur Squamous Epith Cells 0-3 Urine Bacteria 3+ A Hyaline Casts 0-3 B-Hydroxybutyrate 1.97 H 10/21/19 10/21/19 10/21/19 05:45 08:40 08:40 Sodium 143 Potassium 3.6 Chloride 111 H Carbon Dioxide 21 L Anion Gap 15 BUN 33 H Creatinine 1.47 H Estimated GFR (MDRD) 36 Glucose 204 H POC Glucose 468 H Lactic Acid 3.8 H Calcium 8.7 Troponin I Urine Color Urine Clarity Urine pH Ur Specific [place] Urine Protein Urine Glucose (UA) Urine Ketones Urine Blood Urine Nitrite Urine Bilirubin Urine Urobilinogen Ur Leukocyte Esterase Urine RBC Urine WBC Ur Squamous Epith Cells Urine Bacteria Hyaline Casts B-Hydroxybutyrate 10/21/19 10/21/19 10/21/19 09:00 10:12 14:35 Sodium 143 Potassium 4.0 Chloride 114 H Carbon Dioxide 19 L Anion Gap 14 BUN 32 H Creatinine 1.20 H Estimated GFR (MDRD) 45 Glucose 263 H POC Glucose 187 H 156 H Lactic Acid Calcium 7.9 Troponin I Urine Color Urine Clarity Urine pH Ur Specific [place] Urine Protein Urine Glucose (UA) Urine Ketones Urine Blood Urine Nitrite Urine Bilirubin Urine Urobilinogen Ur Leukocyte Esterase Urine RBC Urine WBC Ur Squamous Epith Cells Urine Bacteria Hyaline Casts B-Hydroxybutyrate
[2019-10-21 17:09] LABS: SARS-CoV-2 MS2 Positive; SARS-CoV-2 N Gene Negative; SARS-CoV-2 S Gene Negative; SARS-CoV-2 by NAA Not Detected (NotDetected); SARS-CoV-2 orf1ab Negative
[2019-10-22] MEDS: Sodium Chloride 0.9% 1,000 ML IV SCH (02:43)
[2019-10-22] MEDS: Vancomycin 1 GM in Premix Bag 1 BAG IVPB SCH (02:43)
[2019-10-22 04:17] LABS: Anion Gap 12 mmol/L (10-20); BUN (Urea Nitrogen) 32 mg/dL (9.8-20.1); Calc. Creatinine Clearance 51 mL/min (70-130); Calcium 7.6 mg/dL (7.8-10.44); Carbon Dioxide 21 mmol/L (23-31); Chloride 113 mmol/L (98-107); Estimated GFR-MDRD 42; Glucose 174 mg/dL (80-115); Potassium 3.7 mmol/L (3.5-5.1); Sodium 142 mmol/L (136-145)
[2019-10-22 04:57] LABS: Band 4 % (5-11); Lymphocytes 15 % (21-51); MDiff Complete? YES; Mean Corpuscular HGB CONC 31.8 g/dL (32.0-36.0); Mean Corpuscular Hemoglobin 28.7 pg (27.0-31.0); Mean Corpuscular Volume 90.3 fL (78.0-98.0); Mean Platelet Volume 7.9 fL (7.4-10.4); Metamyelocyte 1 % (0-0); Monocytes 3 % (0-10); Neutrophil 76 % (42-75); Platelet Count 453 thou/uL (130-400); RBC Distribution Width 13.8 % (11.5-14.5); Reactive Lymphocytes 1 % (0-10); Red Blood Cell (RBC) Count 3.14 mill/uL (4.20-5.40); White Blood Cell (WBC) Count 12.1 thou/uL (4.8-10.8)
[2019-10-22] MEDS: Piperacillin/Tazobactam 3.375 GM in Sodium Chloride 0.9% 100 ML IVPB SCH ×4 (05:15→23:45)
[2019-10-22] MEDS: Insulin Regular 300 UNITS/3 ML VIAL SC PRN ×4 (06:04→21:55)
[2019-10-22] MEDS: hydrALAZINE 20 MG/ML VIAL SLOW IVP PRN (06:05)
[2019-10-22] MEDS: FLUoxetine HCl 10 MG CAP PO SCH (08:18)
[2019-10-22] MEDS: Famotidine 20 MG TAB PO SCH (08:19)
[2019-10-22] MEDS: Heparin 5,000 UNITS/ML VIAL SC SCH ×3 (08:19→20:02)
--- NOTE | 2019-10-22 12:31 | PDOC.HOSPP ---
- Subjective Encounter Date: 10/22/19 Encounter Time: 12:30 Subjective: f/u for L foot gangrene s/p amputation POD #1. Receiving Zosyn/Vancomycin. Minimal pain in L foot. Tx for DKA initially with insuin gtt now resolved. - Objective Vital Signs & Weight: Vital Signs (12 hours) Temp Pulse Resp BP Pulse Ox 10/22/19 11:45 97.7 F 81 16 143/83 H 98 10/22/19 08:00 97.5 F L 10/22/19 04:00 97.5 F L Weight Weight 162 lb 0.636 oz Most Recent Monitor Data Heart Rate from ECG 81 NIBP 135/78 NIBP BP-Mean 97 Respiration from ECG 20 SpO2 98 I&O: 10/21/19 10/22/19 10/23/19 06:59 06:59 06:59 Intake Total 4258 400 Output Total 1620 500 Balance 2638 -100 Result Diagrams: 10/22/19 03:30 10/22/19 03:30 Additional Labs: Accuchecks 10/22/19 10/21/19 10/21/19 06:07 20:45 17:30 POC Glucose 279 H 283 H 232 H 10/21/19 10/21/19 10/21/19 05:45 04:45 02:45 POC Glucose 468 H Greater than 550 H* Greater than 550 H* Microbiology 10/21/19 05:46 Foot - Swab Bacterial Culture - Preliminary 10/21/19 05:46 Foot - Swab Gram Negative Aristides 10/21/19 02:30 Venous blood - Right Arm Blood Culture - Preliminary Specimen has been received and culture in progress. No Growth to date. 10/21/19 02:30 Venous blood - Left Arm Blood Culture - Preliminary Specimen has been received and culture in progress. No Growth to date. Laboratory Tests 10/21/19 10/21/19 10/21/19 02:30 02:42 11:58 WBC 24.4 H Hgb 10.8 L Plt Count 621 H Neutrophils % (Manual) 89 H BUN Creatinine B-Hydroxybutyrate 1.97 H COVID-19 PCR Not Detected 10/21/19 10/22/19 14:35 03:30 WBC Hgb Plt Count Neutrophils % (Manual) 76 H BUN 32 H Creatinine 1.20 H B-Hydroxybutyrate COVID-19 PCR Radiology Reviewed by me: Yes (L foot X-ray - soft tissue gas forefoot, L great toe distal phalangeal fx) EKG Reviewed by me: Yes (Tele - SR) Hospitalist ROS - Medication Medications: Active Medications Generic Name Dose Route Start Last Admin Trade Name Freq PRN Reason Stop Dose Admin Famotidine 20 mg 10/21/19 09:00 10/22/19 08:19 Pepcid PO 20 mg 0900 HUMBLE Administration Fluoxetine HCl 20 mg 10/21/19 09:00 10/22/19 08:18 Prozac PO 20 mg DAILY HUMBLE Administration Heparin Sodium (Porcine) 5,000 units 10/21/19 09:00 10/22/19 08:19 Heparin SC 5,000 units TID HUMBLE Administration Hydralazine HCl 10 mg 10/21/19 06:29 10/22/19 06:05 Apresoline SLOW IVP 10 mg Q6H PRN Administration SBP GREATER THAN 160 Piperacillin Sod/Tazobactam 100 mls @ 200 mls/hr 10/21/19 12:00 10/22/19 10: 58 Sod 3.375 gm/ Sodium Chloride IVPB 100 mls Q6HR HUMBLE Administration Vancomycin HCl 1 gm/ Device 200 mls @ 200 mls/hr 10/22/19 03:00 10/22/19 02: 43 IVPB 200 mls 0300 HUMBLE Administration Insulin Human Regular 0 units 10/21/19 11:35 10/22/19 10:55 Humulin R SC 9 unit .AGGRESSIVE SLIDING PRN Administration AGGRESSIVE SLIDING SCALE Protocol Morphine Sulfate 2 mg 10/21/19 06:29 10/22/19 03:47 Morphine SLOW IVP 2 mg Q4H PRN Administration severe pain 4-10 Ondansetron HCl 4 mg 10/21/19 06:29 10/21/19 12:59 Zofran IVP 4 mg Q6H PRN Administration Nausea/Vomiting use 1st - Exam General Appearance: NAD, awake alert Eye: PERRL, anicteric sclera ENT: normocephalic atraumatic, no oropharyngeal lesions Neck: supple, symmetric, no JVD, no thyromegaly, no lymphadenopathy Heart: RRR, no murmur, no gallops, no rubs Heart - other findings: S1, S2 Respiratory: CTAB, no wheezes, no rales, no ronchi, normal chest expansion Gastrointestinal: soft, non-tender, non-distended, normal bowel sounds, no palpable masses Extremities: no cyanosis, no clubbing Extremities - other findings: post-surgical changes to L foot Skin: normal turgor, no lesions Neurological: cranial nerve grossly intact, no new deficit Musculoskeletal: normal tone, generalized weakness Psychiatric: normal affect, A&O x 3 Hosp A/P (1) Sepsis Code(s): A41.9 - SEPSIS, UNSPECIFIED ORGANISM Status: Acute Plan: Secondary to #2, improved, continue Zosyn/Vancomycin (2) Gangrene of left foot Code(s): I96 - GANGRENE, NOT ELSEWHERE CLASSIFIED Status: Acute Plan: s/p Guillotine amputation of L foot POD #1, pain control, continue IV Zosyn/ Vancomycin, likely will need BKA at a future date (3) Osteomyelitis of left foot Code(s): M86.9 - OSTEOMYELITIS, UNSPECIFIED Status: Acute Plan: See above #1 (4) JUWAN (acute kidney injury) Code(s): N17.9 - ACUTE KIDNEY FAILURE, UNSPECIFIED Status: Acute Plan: Avoid nephrotoxic meds and limit contrast exposure, serial creatinine (5) Diabetes mellitus Code(s): E11.9 - TYPE 2 DIABETES MELLITUS WITHOUT COMPLICATIONS Status: Chronic (6) HTN (hypertension) Code(s): I10 - ESSENTIAL (PRIMARY) HYPERTENSION Status: Chronic (7) DKA (diabetic ketoacidosis) Code(s): E11.10 - TYPE 2 DIABETES MELLITUS WITH KETOACIDOSIS WITHOUT COMA Status: Acute Plan: Resolved, resume ISS, home DM regimen, serial Accuchecks - Plan continue antibiotics, PT/OT, health social work professor, respiratory therapy, incentive spirometry Stable overall Continue Vancomycin/Zosyn Pain control as clinically indicated Saline lock IVF's OOB/ambulate with PT Transfer to surgical floor AM lab: BMP, CBC
[2019-10-22] MEDS ORDERED: Acetaminophen 500 MG TAB PO PRN (12:46)
[2019-10-22] MEDS ORDERED: Ondansetron ORAL SOLN. 4 MG/5 ML UDCUP PO PRN ×2 (12:47)
[2019-10-22] MEDS ORDERED: Ondansetron ODT 8 MG TAB PO PRN (12:47)
[2019-10-22] MEDS ORDERED: Ondansetron ODT 8 MG TAB SL PRN (12:47)
[2019-10-22] MEDS ORDERED: Ondansetron ODT 4 MG TAB PO PRN (12:47)
--- NOTE | 2019-10-22 13:11 | PRG ---
DATE OF SERVICE: 10/22/2019 Ms. Cortez is known to me. She is status post guillotine amputation by Dr. 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 Plan is Friday formal BKA. We will leave her dressings over her guillotine amputation at this time. We will plan left BKA on 10/25/2019 in a.m. Patient's hemoglobin is 9. We will keep her n.p.o. after midnight on Friday night. Job ID: [id number]
--- NOTE | 2019-10-22 14:54 | PDOC.OP ---
Operative Note - Operative Note Operative Note: PROCEDURE: Guillotine amputation of left foot SURGEON: Pablo Ortiz M.D. DATE: 10/21/2019 PREOPERATIVE DIAGNOSIS: Wet gangrene of the left foot with sepsis POSTOPERATIVE DIAGNOSIS: Wet gangrene of the left foot with sepsis HISTORY: Noncompliant diabetic patient with at least a one-week history of increasing pain in her left foot. She presented with obvious left foot wet gangrene and severe sepsis and DKA. Recommendation was made to proceed with emergent guillotine amputation for control of sepsis. PROCEDURE IN DETAIL: After informed consent was obtained from the patient and her daughter and , she was taken to the operating room she was placed in the supine position and anesthesia was administered. She was prepped and draped in the standard sterile fashion excluding the gangrenous foot from the operative field. A guillotine amputation was performed at the level of the ankle using a Gigli saw. All 3 vessels were patent at this level and were clamped and ligated. Additional bleeding from small muscular branches was controlled with electrocautery and some persistent oozing from the saphenous vein was controlled with suture ligation. The wound was copiously irrigated and examined. There was no evidence of ascending infection at this level and no purulence or ischemia. Hemostasis was verified and a wet-to-dry dressing was placed and patient was extubated and taken to recovery in good condition. Once the wound was properly dressed the amputated foot was examined on the back table and the eschar incised and a culture taken of the underlying malodorous necrotic tissue. Estimated blood loss was 100 mL's. There were no complications. Specimen is left foot, and culture of left foot.
[2019-10-22] MEDS: Gabapentin 300 MG CAP PO SCH ×2 (15:29→20:03)
[2019-10-22] MEDS ORDERED: Dextrose 5% in Water 1,000 ML IV PRN (19:54)
[2019-10-23 02:51] LABS: Vancomycin, Trough 11.6 ug/mL
[2019-10-23] MEDS: Vancomycin HCl 1.25 GM in Sodium Chloride 0.9% 250 ML 250 ML IVPB SCH (03:24)
[2019-10-23] MEDS: hydrALAZINE 20 MG/ML VIAL SLOW IVP PRN (03:24)
[2019-10-23] MEDS: Vancomycin 1 GM in Premix Bag 1 BAG IVPB SCH (03:54)
[2019-10-23 06:05] LABS: #Eosinphils 0.1 thou/uL (0.0-0.7); #Lymphocytes 2.1 thou/uL (1.20-3.40); #Monocytes 0.4 thou/uL (0.11-0.59); #Neutrophils 5.5 thou/uL (1.40-6.50); %Basophils 0.4 % (0.0-1.0); %Eosinophils 1.1 % (0.0-10.0); %Lymphocytes 25.5 % (21.0-51.0); Hemoglobin 9.5 g/dL (12.0-16.0); Mean Corpuscular Volume 90.7 fL (78.0-98.0); Platelet Count 405 thou/uL (130-400); RBC Distribution Width 14.1 % (11.5-14.5); Red Blood Cell (RBC) Count 3.26 mill/uL (4.20-5.40); White Blood Cell (WBC) Count 8.1 thou/uL (4.8-10.8)
[2019-10-23 06:30] LABS: Anion Gap 10 mmol/L (10-20); BUN (Urea Nitrogen) 24 mg/dL (9.8-20.1); Calc. Creatinine Clearance 62 mL/min (70-130); Calcium 7.5 mg/dL (7.8-10.44); Carbon Dioxide 23 mmol/L (23-31); Chloride 111 mmol/L (98-107); Estimated GFR-MDRD 54; Glucose 193 mg/dL (80-115); Sodium 140 mmol/L (136-145)
[2019-10-23] MEDS: Piperacillin/Tazobactam 3.375 GM in Sodium Chloride 0.9% 100 ML IVPB SCH ×5 (06:31→23:43)
[2019-10-23] MEDS: Insulin Regular 300 UNITS/3 ML VIAL SC PRN ×4 (06:32→20:54)
[2019-10-23] MEDS: Famotidine 20 MG TAB PO SCH (08:23)
[2019-10-23] MEDS: Heparin 5,000 UNITS/ML VIAL SC SCH ×3 (08:23→20:54)
[2019-10-23] MEDS: Gabapentin 300 MG CAP PO SCH ×3 (08:23→20:54)
[2019-10-23] MEDS: FLUoxetine HCl 10 MG CAP PO SCH (09:45)
[2019-10-23 15:20] LABS: Magnesium 1.9 mg/dL (1.6-2.6)
--- NOTE | 2019-10-23 15:25 | EKG ---
Test Reason : Blood Pressure : / mmHG Vent. Rate : 109 BPM Atrial Rate : 109 BPM P-R Int : 126 ms QRS Dur : 072 ms QT Int : 348 ms P-R-T Axes : 066 043 076 degrees QTc Int : 468 ms Sinus tachycardia Otherwise normal ECG Confirmed by CEFERINO CHAUDHARY DO ([id number]), purchase request editor SLOANE SALGADO ([id number]) on 10/23/2019 3:24:33 PM Referred By: Confirmed By:CEFERINO CHAUDHARY DO
[2019-10-23 15:26] LABS: Phosphorus 1.8 mg/dL (2.3-4.7)
--- NOTE | 2019-10-23 16:59 | PDOC.HOSPP ---
- Subjective Encounter Date: 10/23/19 Encounter Time: 14:00 Subjective: Patient seen and examined for sepsis with gangrene. Pain controlled. Denies any fever, chills, nausea or abdominal pain. - Objective Vital Signs & Weight: Vital Signs (12 hours) Temp Pulse Pulse Resp BP BP BP 10/23/19 15:11 97.4 F L 83 16 144/72 H 10/23/19 11:06 97.5 F L 83 16 120/72 10/23/19 10:15 81 138/80 10/23/19 07:28 97.6 F 81 16 138/80 10/23/19 05:05 137/72 Pulse Ox Pulse Ox 10/23/19 15:11 99 10/23/19 11:06 99 10/23/19 10:15 98 10/23/19 07:28 98 10/23/19 05:05 Weight Weight 162 lb 0.636 oz Most Recent Monitor Data Heart Rate from ECG 81 NIBP 135/78 NIBP BP-Mean 97 Respiration from ECG 20 SpO2 98 I&O: 10/22/19 10/23/19 10/24/19 06:59 06:59 06:59 Intake Total 4258 1480 Output Total 1620 1700 Balance 2638 -220 Result Diagrams: 10/23/19 05:23 10/23/19 05:23 Additional Labs: Accuchecks 10/23/19 10/23/19 10/23/19 15:19 11:12 06:27 POC Glucose 309 H 233 H 209 H 10/22/19 10/22/19 21:19 10:54 POC Glucose 241 H 263 H Radiology Reviewed by me: Yes (Foot x-raysoft tissue infection) Hospitalist ROS - Review of Systems Respiratory: denies: cough, dry, shortness of breath, hemoptysis, SOB with excertion, pleuritic pain, sputum, wheezing, other Cardiovascular: denies: chest pain, palpitations, orthopnea, paroxysmal noc. dyspnea, edema, light headedness, other Gastrointestinal: denies: nausea, vomiting, abdominal pain, diarrhea, constipation, melena, hematochezia, other - Medication Medications: Active Medications Generic Name Dose Route Start Last Admin Trade Name Freq PRN Reason Stop Dose Admin Famotidine 20 mg 10/21/19 09:00 10/23/19 08:23 Pepcid PO 20 mg 0900 HUMBLE Administration Fluoxetine HCl 20 mg 10/21/19 09:00 10/23/19 09:45 Prozac PO 20 mg DAILY HUMBLE Administration Gabapentin 300 mg 10/22/19 15:00 10/23/19 16:20 Neurontin PO 300 mg TID HUMBLE Administration Heparin Sodium (Porcine) 5,000 units 10/21/19 09:00 10/23/19 16:20 Heparin SC 10/24/19 23:00 5,000 units TID HUMBLE Administration Hydralazine HCl 10 mg 10/21/19 06:29 10/23/19 03:24 Apresoline SLOW IVP 10 mg Q6H PRN Administration SBP GREATER THAN 160 Piperacillin Sod/Tazobactam 100 mls @ 200 mls/hr 10/21/19 12:00 10/23/19 14:52 Sod 3.375 gm/ Sodium Chloride IVPB Not Given Q6HR HUMBLE Vancomycin HCl 1.25 gm/ Sodium 250 mls @ 166.667 mls/hr 10/23/19 04:00 10/23/19 03:24 Chloride IVPB 10/28/19 06:00 250 mls 0400 HUMBLE Administration Insulin Human Regular 0 units 10/21/19 11:35 10/23/19 12:55 Humulin R SC 6 unit .AGGRESSIVE SLIDING PRN Administration AGGRESSIVE SLIDING SCALE Protocol Morphine Sulfate 2 mg 10/21/19 06:29 10/22/19 03:47 Morphine SLOW IVP 2 mg Q4H PRN Administration severe pain 4-10 Ondansetron HCl 4 mg 10/21/19 06:29 10/21/19 12:59 Zofran IVP 4 mg Q6H PRN Administration Nausea/Vomiting use 1st Sodium Chloride 10 ml 10/22/19 21:00 10/23/19 08:25 Flush - Normal Saline IVF 10 ml Q12HR HUMBLE Administration - Exam General Appearance: NAD Neck: supple, no JVD Heart: RRR, no gallops Respiratory: CTAB, no rales Gastrointestinal: soft, non-tender, normal bowel sounds Extremities: no cyanosis, no clubbing Extremities - other findings: Wound dressed Psychiatric: normal affect, A&O x 3 Hosp A/P (1) Sepsis with acute organ dysfunction Code(s): A41.9 - SEPSIS, UNSPECIFIED ORGANISM; R65.20 - SEVERE SEPSIS WITHOUT SEPTIC SHOCK Status: Acute (2) Gangrene of left foot Code(s): I96 - GANGRENE, NOT ELSEWHERE CLASSIFIED Status: Acute (3) DKA (diabetic ketoacidosis) Code(s): E11.10 - TYPE 2 DIABETES MELLITUS WITH KETOACIDOSIS WITHOUT COMA Status: Acute Qualifiers: Diabetes mellitus type: type 2 (4) Acute kidney injury superimposed on CKD Code(s): N17.9 - ACUTE KIDNEY FAILURE, UNSPECIFIED; N18.9 - CHRONIC KIDNEY DISEASE, UNSPECIFIED Status: Acute (5) Osteomyelitis of left foot Code(s): M86.9 - OSTEOMYELITIS, UNSPECIFIED Status: Acute (6) Hypophosphatemia Code(s): E83.39 - OTHER DISORDERS OF PHOSPHORUS METABOLISM Status: Acute (7) Chronic anemia Code(s): D64.9 - ANEMIA, UNSPECIFIED Status: Chronic (8) Depressive disorder in remission Code(s): F32.9 - MAJOR DEPRESSIVE DISORDER, SINGLE EPISODE, UNSPECIFIED Status: Chronic (9) Diabetes mellitus, type 2 Status: Chronic Qualifiers: Chronic kidney disease stage: stage 2 (mild) (10) HTN (hypertension) Code(s): I10 - ESSENTIAL (PRIMARY) HYPERTENSION Status: Chronic - Plan Summary:64-year-old female with diabetes mellitus type 2 and hypertension presented to the emergency room with generalized weakness and fall. His work-up was consistent with sepsis due to diabetic left foot infection/gangrene with diabetic ketoacidosis. He was started on insulin drip. Underwent left foot guillotine amputation. 10/22 Continue postoperative care. Pain control. Continue vancomycin with Zosyn. Monitor vancomycin level. Continue IV fluids. DVT prophylaxis with heparin. Recheck labs in a.m. Continue wound care. Counseled on diabetic diet. Replace phosphorus. Check A1c. Add Lantus 10 units daily.
[2019-10-23] MEDS: K-Phos Neutral 250 MG TAB PO SCH (17:27)
--- NOTE | 2019-10-23 17:39 | PRG ---
DATE OF SERVICE: SUBJECTIVE: The patient is doing well. Her dressing in her amputation stump [facility] is dry. OBJECTIVE: VITAL SIGNS: Temperature 97.4 degrees, pulse 83, blood pressure 144/72. LUNGS: Clear to auscultation. CARDIAC: Regular rate and rhythm without murmur or gallop. ABDOMEN: Soft, nontender. LABORATORY DATA: Her white count is 8, hemoglobin 9.5. Basic metabolic profile is normal. Glucoses are 200 to 309. ASSESSMENT AND PLAN: Plan closure of guillotine amputation, formal BKA Friday. Questions answered. She understands risks and benefits, consents. Job ID: [id number]
[2019-10-23] MEDS: Insulin Glargine 10 UNITS in Pre-Filled Syringe 1 EACH SC SCH (20:53)
[2019-10-23] MEDS ORDERED: Piperacillin/Tazobactam 3.375 GM VIAL ONE (22:47)
[2019-10-24] MEDS: hydrALAZINE 20 MG/ML VIAL SLOW IVP PRN (00:10)
[2019-10-24] MEDS: Vancomycin HCl 1.25 GM in Sodium Chloride 0.9% 250 ML 250 ML IVPB SCH (03:21)
[2019-10-24] MEDS: Piperacillin/Tazobactam 3.375 GM in Sodium Chloride 0.9% 100 ML IVPB SCH ×3 (06:05→18:52)
[2019-10-24] MEDS: Insulin Regular 300 UNITS/3 ML VIAL SC PRN ×4 (06:05→21:20)
[2019-10-24 06:27] LABS: #Eosinphils 0.1 thou/uL (0.0-0.7); #Lymphocytes 1.5 thou/uL (1.20-3.40); #Monocytes 0.3 thou/uL (0.11-0.59); #Neutrophils 4.7 thou/uL (1.40-6.50); %Basophils 0.3 % (0.0-1.0); %Eosinophils 1.3 % (0.0-10.0); %Lymphocytes 22.5 % (21.0-51.0); %Monocytes 4.9 % (0.0-10.0); Hemoglobin 9.1 g/dL (12.0-16.0); Mean Corpuscular HGB CONC 31.7 g/dL (32.0-36.0); Mean Corpuscular Hemoglobin 28.7 pg (27.0-31.0); Mean Corpuscular Volume 90.6 fL (78.0-98.0); Mean Platelet Volume 8.1 fL (7.4-10.4); Platelet Count 384 thou/uL (130-400); RBC Distribution Width 14.2 % (11.5-14.5); Red Blood Cell (RBC) Count 3.17 mill/uL (4.20-5.40); White Blood Cell (WBC) Count 6.7 thou/uL (4.8-10.8)
[2019-10-24 06:30] LABS: Hemoglobin A1c 12.6 % (4.0-6.0)
[2019-10-24 06:47] LABS: Anion Gap 9 mmol/L (10-20); BUN (Urea Nitrogen) 21 mg/dL (9.8-20.1); Calc. Creatinine Clearance 76 mL/min (70-130); Calcium 7.3 mg/dL (7.8-10.44); Carbon Dioxide 25 mmol/L (23-31); Chloride 109 mmol/L (98-107); Estimated GFR-MDRD 67; Glucose 201 mg/dL (80-115); Phosphorus 2.7 mg/dL (2.3-4.7); Potassium 3.8 mmol/L (3.5-5.1); Sodium 139 mmol/L (136-145)
[2019-10-24] MEDS ORDERED: Magnesium 2 GM/50 ML 2 GM in Premix Bag 1 BAG IVPB SCH (07:30)
[2019-10-24] MEDS: K-Phos Neutral 250 MG TAB PO SCH ×3 (08:01→18:51)
[2019-10-24] MEDS: Heparin 5,000 UNITS/ML VIAL SC SCH ×3 (08:02→21:19)
[2019-10-24] MEDS: Saccharomyces boulardii 250 MG CAP PO SCH (08:02)
[2019-10-24] MEDS: Famotidine 20 MG TAB PO SCH (08:02)
[2019-10-24] MEDS: Gabapentin 300 MG CAP PO SCH ×3 (08:02→21:19)
--- NOTE | 2019-10-24 10:26 | PDOC.HOSPP ---
- Subjective Encounter Date: 10/24/19 Encounter Time: 08:30 Subjective: Patient seen and examined for sepsis with gangrene. Pain controlled at this time. Denies any chest pain, fever or chills. - Objective Vital Signs & Weight: Vital Signs (12 hours) Temp Pulse Resp BP BP BP Pulse Ox 10/24/19 07:39 97.6 F 84 16 139/80 98 10/24/19 05:50 150/83 H 10/24/19 04:30 97.6 F 83 18 163/87 H 99 10/24/19 01:30 131/76 10/24/19 00:10 75 174/97 H 10/23/19 23:40 97.6 F 75 16 174/97 H 99 Weight Weight 162 lb 0.636 oz Most Recent Monitor Data Heart Rate from ECG 81 NIBP 135/78 NIBP BP-Mean 97 Respiration from ECG 20 SpO2 98 I&O: 10/23/19 10/24/19 10/25/19 06:59 06:59 06:59 Intake Total 1480 1580 Output Total 1700 2175 Balance -220 -595 Result Diagrams: 10/24/19 05:52 10/24/19 05:52 Additional Labs: Accuchecks 10/24/19 10/23/19 10/23/19 05:57 20:56 15:19 POC Glucose 201 H 301 H 309 H 10/23/19 11:12 POC Glucose 233 H Laboratory Tests 10/23/19 10/24/19 14:44 05:52 Hemoglobin A1c 12.6 H Phosphorus 1.8 L Magnesium 1.9 Hospitalist ROS - Review of Systems Respiratory: denies: cough, dry, shortness of breath, hemoptysis, SOB with excertion, pleuritic pain, sputum, wheezing, other Cardiovascular: denies: chest pain, palpitations, orthopnea, paroxysmal noc. dyspnea, edema, light headedness, other - Medication Medications: Active Medications Generic Name Dose Route Start Last Admin Trade Name Freq PRN Reason Stop Dose Admin Famotidine 20 mg 10/21/19 09:00 10/24/19 08:02 Pepcid PO 20 mg 0900 HUMBLE Administration Gabapentin 300 mg 10/22/19 15:00 10/24/19 08:02 Neurontin PO 300 mg TID HUMBLE Administration Heparin Sodium (Porcine) 5,000 units 10/21/19 09:00 10/24/19 08:02 Heparin SC 10/24/19 23:00 5,000 units TID HUMBLE Administration Hydralazine HCl 10 mg 10/21/19 06:29 10/24/19 00:10 Apresoline SLOW IVP 10 mg Q6H PRN Administration SBP GREATER THAN 160 Piperacillin Sod/Tazobactam 100 mls @ 200 mls/hr 10/21/19 12:00 10/24/19 06:05 Sod 3.375 gm/ Sodium Chloride IVPB 100 mls Q6HR HUMBLE Administration Vancomycin HCl 1.25 gm/ Sodium 250 mls @ 166.667 mls/hr 10/23/19 04:00 10/24/19 03:21 Chloride IVPB 10/28/19 06:00 250 mls 0400 HUMBLE Administration Insulin Glargine 10 units/ 0.1 mls @ 0 mls/hr 10/23/19 21:00 10/23/19 20:53 Miscellaneous Medication SC 0.1 mls HS HUMBLE Administration Insulin Human Regular 0 units 10/21/19 11:35 10/24/19 06:05 Humulin R SC 6 unit .AGGRESSIVE SLIDING PRN Administration AGGRESSIVE SLIDING SCALE Protocol Morphine Sulfate 2 mg 10/21/19 06:29 10/22/19 03:47 Morphine SLOW IVP 2 mg Q4H PRN Administration severe pain 4-10 Ondansetron HCl 4 mg 10/21/19 06:29 10/21/19 12:59 Zofran IVP 4 mg Q6H PRN Administration Nausea/Vomiting use 1st Phosphorus 500 mg 10/23/19 17:00 10/24/19 08:01 Kphos Neutral PO 500 mg TID-WM HUMBLE Administration Saccharomyces Boulardii 250 mg 10/24/19 09:00 10/24/19 08:02 Florastor PO 250 mg DAILY HUMBLE Administration Sodium Chloride 10 ml 10/22/19 21:00 10/24/19 08:03 Flush - Normal Saline IVF 10 ml Q12HR HUMBLE Administration - Exam General Appearance: NAD Neck: supple, no JVD Heart: RRR, no gallops Respiratory: no wheezes, no ronchi Gastrointestinal: soft, non-tender, normal bowel sounds Extremities: no cyanosis Hosp A/P (1) Sepsis with acute organ dysfunction Code(s): A41.9 - SEPSIS, UNSPECIFIED ORGANISM; R65.20 - SEVERE SEPSIS WITHOUT SEPTIC SHOCK Status: Acute (2) Gangrene of left foot Code(s): I96 - GANGRENE, NOT ELSEWHERE CLASSIFIED Status: Acute (3) DKA (diabetic ketoacidosis) Code(s): E11.10 - TYPE 2 DIABETES MELLITUS WITH KETOACIDOSIS WITHOUT COMA Status: Acute Qualifiers: Diabetes mellitus type: type 2 (4) Acute kidney injury superimposed on CKD Code(s): N17.9 - ACUTE KIDNEY FAILURE, UNSPECIFIED; N18.9 - CHRONIC KIDNEY DISEASE, UNSPECIFIED Status: Acute (5) Osteomyelitis of left foot Code(s): M86.9 - OSTEOMYELITIS, UNSPECIFIED Status: Acute (6) Hypophosphatemia Code(s): E83.39 - OTHER DISORDERS OF PHOSPHORUS METABOLISM Status: Acute (7) Chronic anemia Code(s): D64.9 - ANEMIA, UNSPECIFIED Status: Chronic (8) Depressive disorder in remission Code(s): F32.9 - MAJOR DEPRESSIVE DISORDER, SINGLE EPISODE, UNSPECIFIED Status: Chronic (9) Diabetes mellitus, type 2 Status: Chronic Qualifiers: Chronic kidney disease stage: stage 2 (mild) (10) HTN (hypertension) Code(s): I10 - ESSENTIAL (PRIMARY) HYPERTENSION Status: Chronic - Plan Summary:64-year-old female with diabetes mellitus type 2 and hypertension presented to the emergency room with generalized weakness and fall. His work-up was consistent with sepsis due to diabetic left foot infection/gangrene with diabetic ketoacidosis. She was started on insulin drip. 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 10/23 Change insulin to 10 units Lantus twice daily. Continue IV vancomycin with Zosyn. 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 Will discontinue subcu heparin after tonight's dose. Continue Pepcid, gabapentin and other medications as above. Recheck labs in a.m. Counseled on diabetes mellitus type 2. 10/22 Continue postoperative care. Pain control. Continue vancomycin with Zosyn. Monitor vancomycin level. Continue IV fluids. DVT prophylaxis with heparin. Recheck labs in a.m. Continue wound care. Counseled on diabetic diet. Replace phosphorus. Check A1c. Add Lantus 10 units daily.
[2019-10-24] MEDS: Insulin Glargine 10 UNITS in Pre-Filled Syringe 1 EACH SC SCH ×2 (10:38→21:19)
[2019-10-24] MEDS: FLUoxetine HCl 20 MG CAP PO SCH (10:38)
[2019-10-25] MEDS: Piperacillin/Tazobactam 3.375 GM in Sodium Chloride 0.9% 100 ML IVPB SCH ×5 (00:49→23:59)
[2019-10-25] MEDS: Vancomycin HCl 1.25 GM in Sodium Chloride 0.9% 250 ML 250 ML IVPB SCH (04:59)
[2019-10-25 05:17] LABS: Anion Gap 11 mmol/L (10-20); BUN (Urea Nitrogen) 15 mg/dL (9.8-20.1); Calc. Creatinine Clearance 69 mL/min (70-130); Calcium 7.3 mg/dL (7.8-10.44); Carbon Dioxide 26 mmol/L (23-31); Chloride 107 mmol/L (98-107); Estimated GFR-MDRD 60; Glucose 126 mg/dL (80-115); Potassium 3.7 mmol/L (3.5-5.1); Sodium 140 mmol/L (136-145); Vancomycin, Trough 15.6 ug/mL
[2019-10-25] MEDS: hydrALAZINE 20 MG/ML VIAL SLOW IVP PRN (05:35)
[2019-10-25] MEDS: K-Phos Neutral 250 MG TAB PO SCH ×3 (08:41→18:02)
[2019-10-25] MEDS: FLUoxetine HCl 20 MG CAP PO SCH (08:42)
[2019-10-25] MEDS: Famotidine 20 MG TAB PO SCH (08:42)
[2019-10-25] MEDS: Saccharomyces boulardii 250 MG CAP PO SCH (08:43)
[2019-10-25] MEDS: Gabapentin 300 MG CAP PO SCH ×3 (08:43→21:53)
[2019-10-25] MEDS: Insulin Glargine 10 UNITS in Pre-Filled Syringe 1 EACH SC SCH ×2 (08:44→21:54)
[2019-10-25] MEDS: Sodium Chloride 0.9% 1,000 ML IV SCH ×2 (08:53→18:59)
[2019-10-25] MEDS ORDERED: PHENYLEPHRINE-NS 100 MCG/ML 10 ML SYRINGE ONE (09:03)
[2019-10-25] MEDS ORDERED: Ondansetron PF 4 MG/2 ML Vial ONE (09:03)
[2019-10-25] MEDS ORDERED: EPHEDRINE 25 MG/5 ML SYRINGE ONE (09:03)
[2019-10-25] MEDS ORDERED: PROPOFOL 200 MG/20 ML VIAL ONE (09:03)
[2019-10-25] MEDS ORDERED: Lidocaine 1% PF 5 ML VIAL ONE (09:03)
--- NOTE | 2019-10-25 14:29 | PRG ---
DATE OF SERVICE: 10/24/2019 SUBJECTIVE: Ms. Cortez is doing well today. She has no complaints. OBJECTIVE: VITAL SIGNS: Normal. LUNGS: Clear to auscultation. CARDIAC: Regular rhythm without murmur or gallop. ABDOMEN: Soft, nontender. EXTREMITIES: Unremarkable. LABORATORY DATA: Her hemoglobin is 9.1. Basic metabolic profile normal. BUN 21, her glucose is 200 to 216. PLAN: Is for a formal BKA tomorrow. Physical therapy will work with her. She should hopefully be able to go to rehab postoperatively mid week. Risks and benefits explained. She consents. I have placed her on gabapentin postoperatively to minimize phantom limb and help with perioperative pain control. Job ID: [id number]
--- NOTE | 2019-10-25 14:39 | PDOC.HOSPP ---
- Subjective Encounter Date: 10/25/19 Encounter Time: 09:15 Subjective: Patient seen and examined for sepsis. Had 2 episodes of diarrhea last night. Denies any nausea, vomiting or abdominal pain. No fever or chills reported. - Objective Vital Signs & Weight: Vital Signs (12 hours) Temp Pulse Resp BP BP BP Pulse Ox 10/25/19 11:18 98.9 F 86 12 130/76 98 10/25/19 08:00 97.7 F 90 12 133/74 97 10/25/19 06:37 119/70 10/25/19 05:35 75 174/99 H 10/25/19 04:04 97.7 F 75 16 161/93 H 99 Weight Weight 162 lb 0.636 oz Most Recent Monitor Data Heart Rate from ECG 81 NIBP 135/78 NIBP BP-Mean 97 Respiration from ECG 20 SpO2 98 I&O: 10/24/19 10/25/19 10/26/19 06:59 06:59 06:59 Intake Total 1580 2670 Output Total 2175 1775 Balance -595 895 Result Diagrams: 10/24/19 05:52 10/25/19 04:24 Additional Labs: Accuchecks 10/25/19 10/25/19 10/24/19 11:39 05:27 21:22 POC Glucose 96 116 H 293 H 10/24/19 16:11 POC Glucose 212 H Hospitalist ROS - Review of Systems Respiratory: denies: cough, dry, shortness of breath, hemoptysis, SOB with excertion, pleuritic pain, sputum, wheezing, other Cardiovascular: denies: chest pain, palpitations, orthopnea, paroxysmal noc. dyspnea, edema, light headedness, other - Medication Medications: Active Medications Generic Name Dose Route Start Last Admin Trade Name Freq PRN Reason Stop Dose Admin Famotidine 20 mg 10/21/19 09:00 10/25/19 08:42 Pepcid PO 20 mg 0900 HUMBLE Administration Fluoxetine HCl 20 mg 10/24/19 09:00 10/25/19 08:42 Prozac PO 20 mg DAILY HUMBLE Administration Gabapentin 300 mg 10/22/19 15:00 10/25/19 08:43 Neurontin PO 300 mg TID HUMBLE Administration Hydralazine HCl 10 mg 10/21/19 06:29 10/25/19 05:35 Apresoline SLOW IVP 10 mg Q6H PRN Administration SBP GREATER THAN 160 Piperacillin Sod/Tazobactam 100 mls @ 200 mls/hr 10/21/19 12:00 10/25/19 12:14 Sod 3.375 gm/ Sodium Chloride IVPB 100 mls Q6HR HUMBLE Administration Sodium Chloride 1,000 mls @ 100 mls/hr 10/25/19 08:00 10/25/19 08:53 Normal Saline 0.9% IV Not Given .Q10H HUMBLE Vancomycin HCl 1.25 gm/ Sodium 250 mls @ 166.667 mls/hr 10/23/19 04:00 10/25/19 04:59 Chloride IVPB 10/28/19 06:00 250 mls 0400 HUMBLE Administration Insulin Glargine 10 units/ 0.1 mls @ 0 mls/hr 10/23/19 21:00 10/24/19 21:19 Miscellaneous Medication SC 0.1 mls HS HUMBLE Administration Insulin Glargine 10 units/ 0.1 mls @ 0 mls/hr 10/24/19 09:00 10/25/19 08:44 Miscellaneous Medication SC 0.1 mls QAM HUMBLE Administration Insulin Human Regular 0 units 10/21/19 11:35 10/24/19 21:20 Humulin R SC 9 unit .AGGRESSIVE SLIDING PRN Administration AGGRESSIVE SLIDING SCALE Protocol Morphine Sulfate 2 mg 10/21/19 06:29 10/22/19 03:47 Morphine SLOW IVP 2 mg Q4H PRN Administration severe pain 4-10 Ondansetron HCl 4 mg 10/21/19 06:29 10/21/19 12:59 Zofran IVP 4 mg Q6H PRN Administration Nausea/Vomiting use 1st Phosphorus 500 mg 10/23/19 17:00 10/25/19 12:17 Kphos Neutral PO 500 mg TID-WM HUMBLE Administration Saccharomyces Boulardii 250 mg 10/24/19 09:00 10/25/19 08:43 Florastor PO 250 mg DAILY HUMBLE Administration Sodium Chloride 10 ml 10/22/19 21:00 10/25/19 08:54 Flush - Normal Saline IVF Not Given Q12HR HUMBLE - Exam General Appearance: NAD Neck: supple, no JVD Heart: RRR, no gallops Respiratory: no wheezes, no rales Gastrointestinal: soft, non-tender, normal bowel sounds Extremities: no cyanosis Hosp A/P (1) Sepsis with acute organ dysfunction Code(s): A41.9 - SEPSIS, UNSPECIFIED ORGANISM; R65.20 - SEVERE SEPSIS WITHOUT SEPTIC SHOCK Status: Acute (2) Gangrene of left foot Code(s): I96 - GANGRENE, NOT ELSEWHERE CLASSIFIED Status: Acute (3) DKA (diabetic ketoacidosis) Code(s): E11.10 - TYPE 2 DIABETES MELLITUS WITH KETOACIDOSIS WITHOUT COMA Status: Acute Qualifiers: Diabetes mellitus type: type 2 (4) Acute kidney injury superimposed on CKD Code(s): N17.9 - ACUTE KIDNEY FAILURE, UNSPECIFIED; N18.9 - CHRONIC KIDNEY DISEASE, UNSPECIFIED Status: Acute (5) Osteomyelitis of left foot Code(s): M86.9 - OSTEOMYELITIS, UNSPECIFIED Status: Acute (6) Hypophosphatemia Code(s): E83.39 - OTHER DISORDERS OF PHOSPHORUS METABOLISM Status: Acute (7) Chronic anemia Code(s): D64.9 - ANEMIA, UNSPECIFIED Status: Chronic (8) Depressive disorder in remission Code(s): F32.9 - MAJOR DEPRESSIVE DISORDER, SINGLE EPISODE, UNSPECIFIED Status: Chronic (9) Diabetes mellitus, type 2 Status: Chronic Qualifiers: Chronic kidney disease stage: stage 2 (mild) (10) HTN (hypertension) Code(s): I10 - ESSENTIAL (PRIMARY) HYPERTENSION Status: Chronic - Plan Summary:64-year-old female with diabetes mellitus type 2 and hypertension presented to the emergency room with generalized weakness and fall. His work-up was consistent with sepsis due to diabetic left foot infection/gangrene with diabetic ketoacidosis. She was started on insulin drip. 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 10/24 Off check stool for C. difficile. Continue IV vancomycin with Zosyn. Monitor vancomycin level. Continue current dose of Lantus with sliding scale. Gabapentin started. Continue other medications as above. Physical therapy consultation. Patient will require inpatient rehab evaluation. 10/23 Change insulin to 10 units Lantus twice daily. Continue IV vancomycin with Zosyn. 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 Will discontinue subcu heparin after tonight's dose. Continue Pepcid, gabapentin and other medications as above. Recheck labs in a.m. Counseled on diabetes mellitus type 2. 10/22 Continue postoperative care. Pain control. Continue vancomycin with Zosyn. Monitor vancomycin level. Continue IV fluids. DVT prophylaxis with heparin. Recheck labs in a.m. Continue wound care. Counseled on diabetic diet. Replace phosphorus. Check A1c. Add Lantus 10 units daily.
[2019-10-25] MEDS ORDERED: Dextrose 50% Abboject 50 ML SYRINGE SLOW IVP SCH (18:00)
[2019-10-25] MEDS ORDERED: Dextrose 5 % And 0.9 % NaCl 1,000 ML IV SCH (18:00)
[2019-10-25] MEDS ORDERED: Fentanyl 100 MCG/2 ML VIAL ONE ×2 (18:33→20:06)
[2019-10-25] MEDS ORDERED: Midazolam HCl 2 mg/2 ml Vial ONE (18:33)
[2019-10-25] MEDS ORDERED: Promethazine HCl 25 MG/ML VIAL IM PRN (20:03)
[2019-10-25] MEDS ORDERED: Ondansetron HCl/PF 4 MG/2 ML Vial IVP PRN (20:03)
[2019-10-25] MEDS ORDERED: Promethazine HCl 25 MG/ML VIAL SLOW IVP PRN (20:03)
[2019-10-25] MEDS ORDERED: Enoxaparin Sodium 40 MG/0.4 ML SYRINGE SC SCH (21:00)
[2019-10-25] MEDS: Enoxaparin Sodium 40 MG/0.4 ML SYRINGE SC SCH (21:53)
[2019-10-25] MEDS: Insulin Regular 300 UNITS/3 ML VIAL SC PRN (21:55)
--- NOTE | 2019-10-26 02:23 | OP ---
DATE OF PROCEDURE: 10/25/2019 PREOPERATIVE DIAGNOSIS: Gas gangrene, left foot diabetic infection, status post guillotine amputation, now performed closure. POSTOPERATIVE DIAGNOSIS: Gas gangrene, left foot diabetic infection, status post guillotine amputation, now performed closure. PROCEDURE PERFORMED: Left [id number] amputation. ANESTHESIA: General. ESTIMATED BLOOD LOSS: 120 mL. DESCRIPTION OF PROCEDURE: The patient was taken to the operating room, where under general anesthesia, left lower extremity was prepared with Betadine and draped in routine fashion. Incision was made for a left BKA. Long posterior flap incision was carried down to skin, subcutaneous tissue, fascia, dividing muscular bundles with cautery and vascular bundles between clamps, ligated with 2-0 silk ties. Tibia cleared the periosteum proximally, transected with Gigli saw, bevelling the anterior edge cephalad, smoothened the edge with a rasp. Fibula cut with a bone cutter an inch above the cut edge of the tibia. Wound irrigated. Good hemostasis assured with cautery and 2-0 silk ties. Fascia approximated with 2-0 Vicryl, skin with femi. Sterile dressing applied. Job ID: [id number]
[2019-10-26] MEDS: Vancomycin HCl 1.25 GM in Sodium Chloride 0.9% 250 ML 250 ML IVPB SCH (04:32)
[2019-10-26 05:21] LABS: #Eosinphils 0.1 thou/uL (0.0-0.7); #Lymphocytes 1.4 thou/uL (1.20-3.40); #Monocytes 0.5 thou/uL (0.11-0.59); #Neutrophils 6.9 thou/uL (1.40-6.50); %Basophils 0.1 % (0.0-1.0); %Eosinophils 1.2 % (0.0-10.0); %Lymphocytes 15.7 % (21.0-51.0); %Monocytes 5.9 % (0.0-10.0); %Neutrophils 77.1 % (42.0-75.0); Hemoglobin 8.3 g/dL (12.0-16.0); Mean Corpuscular HGB CONC 32.5 g/dL (32.0-36.0); Mean Corpuscular Hemoglobin 29.9 pg (27.0-31.0); Mean Platelet Volume 7.6 fL (7.4-10.4); Platelet Count 330 thou/uL (130-400); RBC Distribution Width 14.8 % (11.5-14.5); Red Blood Cell (RBC) Count 2.78 mill/uL (4.20-5.40); White Blood Cell (WBC) Count 8.9 thou/uL (4.8-10.8)
[2019-10-26 05:51] LABS: Anion Gap 11 mmol/L (10-20); BUN (Urea Nitrogen) 11 mg/dL (9.8-20.1); Calc. Creatinine Clearance 65 mL/min (70-130); Calcium 7.2 mg/dL (7.8-10.44); Carbon Dioxide 22 mmol/L (23-31); Chloride 108 mmol/L (98-107); Estimated GFR-MDRD 56; Glucose 257 mg/dL (80-115); Potassium 4.1 mmol/L (3.5-5.1); Sodium 137 mmol/L (136-145)
[2019-10-26] MEDS: Piperacillin/Tazobactam 3.375 GM in Sodium Chloride 0.9% 100 ML IVPB SCH ×2 (06:23→12:25)
[2019-10-26] MEDS: Insulin Regular 300 UNITS/3 ML VIAL SC PRN ×4 (06:24→21:27)
[2019-10-26] MEDS: Saccharomyces boulardii 250 MG CAP PO SCH (08:46)
[2019-10-26] MEDS: Famotidine 20 MG TAB PO SCH (08:46)
[2019-10-26] MEDS: Insulin Glargine 10 UNITS in Pre-Filled Syringe 1 EACH SC SCH ×2 (08:47→21:27)
[2019-10-26] MEDS: FLUoxetine HCl 20 MG CAP PO SCH (08:47)
[2019-10-26] MEDS: K-Phos Neutral 250 MG TAB PO SCH ×3 (08:47→17:21)
[2019-10-26] MEDS: Gabapentin 300 MG CAP PO SCH ×3 (08:47→21:26)
[2019-10-26] MEDS: traMADol HCl 50 MG TAB PO PRN (09:06)
--- NOTE | 2019-10-26 13:59 | PRG ---
DATE OF SERVICE: 10/26/2019 Concepcion Cortez is doing well today. Her pain is well controlled on oral medications after undergoing 10/25/2019 left below-knee amputation after previous guillotine amputation for gas gangrene. Blood cultures are negative today. I discontinued antibiotics today. I have reinforced the patient she should keep her left BKA stump elevated over pillows or blankets placed below her knee to facilitate extension of the leg and to prevent contraction. We would recommend dressings from the BKA wound to be removed tomorrow Friday and begin daily washing of the wound with soap and water patting it dry. Apply antibiotic ointment, Telfa, and stump military pay clerk. I would plan to see her in my office in 2 weeks to remove the femi. The patient is ready to transfer to the rehab unit at anytime from my standpoint, she can transfer today. If she is still here tomorrow, we will . If not, rehab can perform those duties. Job ID: [id number]
--- NOTE | 2019-10-26 21:16 | PDOC.HOSPP ---
- Subjective Encounter Date: 10/26/19 Encounter Time: 09:00 Subjective: Patient seen and examined for diabetic foot infection with DKA. Pain control. Diarrhea has resolved. Denies any nausea, fever or chills. - Objective Vital Signs & Weight: Vital Signs (12 hours) Temp Pulse Resp BP Pulse Ox 10/26/19 19:54 98.3 F 89 16 157/79 H 97 10/26/19 16:46 98.0 F 95 14 148/80 H 95 10/26/19 11:22 98.5 F 91 14 160/68 H 96 Weight Weight 162 lb 0.636 oz Most Recent Monitor Data Heart Rate from ECG 81 NIBP 135/78 NIBP BP-Mean 97 Respiration from ECG 20 SpO2 98 I&O: 10/25/19 10/26/19 10/27/19 06:59 06:59 06:59 Intake Total 2670 1540 990 Output Total 1775 1750 Balance 895 -210 990 Result Diagrams: 10/26/19 05:03 10/26/19 05:03 Additional Labs: Accuchecks 10/26/19 10/26/19 10/26/19 21:04 16:26 11:01 POC Glucose 214 H 235 H 183 H 10/26/19 10/25/19 05:50 21:57 POC Glucose 244 H 238 H Hospitalist ROS - Review of Systems Respiratory: denies: cough, dry, shortness of breath, hemoptysis, SOB with excertion, pleuritic pain, sputum, wheezing, other Cardiovascular: denies: chest pain, palpitations, orthopnea, paroxysmal noc. dyspnea, edema, light headedness, other - Medication Medications: Active Medications Generic Name Dose Route Start Last Admin Trade Name Freq PRN Reason Stop Dose Admin Enoxaparin Sodium 40 mg 10/25/19 21:00 10/25/19 21:53 Lovenox SC 40 mg 2100 HUMBLE Administration Famotidine 20 mg 10/21/19 09:00 10/26/19 08:46 Pepcid PO 20 mg 0900 HUMBLE Administration Fluoxetine HCl 20 mg 10/24/19 09:00 10/26/19 08:47 Prozac PO 20 mg DAILY HUMBLE Administration Gabapentin 300 mg 10/22/19 15:00 10/26/19 15:30 Neurontin PO 300 mg TID HUMBLE Administration Hydralazine HCl 10 mg 10/21/19 06:29 10/25/19 05:35 Apresoline SLOW IVP 10 mg Q6H PRN Administration SBP GREATER THAN 160 Insulin Human Regular 0 units 10/21/19 11:35 10/26/19 17:21 Humulin R SC 6 unit .AGGRESSIVE SLIDING PRN Administration AGGRESSIVE SLIDING SCALE Protocol Morphine Sulfate 2 mg 10/21/19 06:29 10/22/19 03:47 Morphine SLOW IVP 2 mg Q4H PRN Administration severe pain 4-10 Ondansetron HCl 4 mg 10/21/19 06:29 10/21/19 12:59 Zofran IVP 4 mg Q6H PRN Administration Nausea/Vomiting use 1st Phosphorus 500 mg 10/23/19 17:00 10/26/19 17:21 Kphos Neutral PO 500 mg TID-WM HUMBLE Administration Saccharomyces Boulardii 250 mg 10/24/19 09:00 10/26/19 08:46 Florastor PO 250 mg DAILY HUMBLE Administration Sodium Chloride 10 ml 10/22/19 21:00 10/26/19 09:00 Flush - Normal Saline IVF 10 ml Q12HR HUMBLE Administration Tramadol HCl 50 mg 10/22/19 12:46 10/26/19 09:06 Ultram PO 50 mg Q4H PRN Administration Moderate Pain (4-6) - Exam General Appearance: NAD Neck: supple, no JVD Heart: RRR, no gallops Respiratory: no wheezes, no rales Gastrointestinal: non-tender, non-distended, normal bowel sounds Extremities: no cyanosis Hosp A/P (1) Sepsis with acute organ dysfunction Code(s): A41.9 - SEPSIS, UNSPECIFIED ORGANISM; R65.20 - SEVERE SEPSIS WITHOUT SEPTIC SHOCK Status: Acute (2) Gangrene of left foot Code(s): I96 - GANGRENE, NOT ELSEWHERE CLASSIFIED Status: Acute (3) DKA (diabetic ketoacidosis) Code(s): E11.10 - TYPE 2 DIABETES MELLITUS WITH KETOACIDOSIS WITHOUT COMA Status: Acute Qualifiers: Diabetes mellitus type: type 2 (4) Acute kidney injury superimposed on CKD Code(s): N17.9 - ACUTE KIDNEY FAILURE, UNSPECIFIED; N18.9 - CHRONIC KIDNEY DISEASE, UNSPECIFIED Status: Acute (5) Osteomyelitis of left foot Code(s): M86.9 - OSTEOMYELITIS, UNSPECIFIED Status: Acute (6) Hypophosphatemia Code(s): E83.39 - OTHER DISORDERS OF PHOSPHORUS METABOLISM Status: Acute (7) Chronic anemia Code(s): D64.9 - ANEMIA, UNSPECIFIED Status: Chronic (8) Depressive disorder in remission Code(s): F32.9 - MAJOR DEPRESSIVE DISORDER, SINGLE EPISODE, UNSPECIFIED Status: Chronic (9) Diabetes mellitus, type 2 Status: Chronic Qualifiers: Chronic kidney disease stage: stage 2 (mild) (10) HTN (hypertension) Code(s): I10 - ESSENTIAL (PRIMARY) HYPERTENSION Status: Chronic - Plan Summary:64-year-old female with diabetes mellitus type 2 and hypertension presented to the emergency room with generalized weakness and fall. His work-up was consistent with sepsis due to diabetic left foot infection/gangrene with diabetic ketoacidosis. She was started on insulin drip. 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 10/25 Diarrhea has resolved. Antibiotic discontinued. Increase Lantus to 30 units daily. Continue gabapentin and other medications as above. Patient is stable for discharge awaiting inpatient rehab placement. Continue sliding scale. DVT prophylaxis.. Recheck CBC in a.m. 10/24 Off check stool for C. difficile. Continue IV vancomycin with Zosyn. Monitor vancomycin level. Continue current dose of Lantus with sliding scale. Gabapentin started. Continue other medications as above. Physical therapy consultation. Patient will require inpatient rehab evaluation. 10/23 Change insulin to 10 units Lantus twice daily. Continue IV vancomycin with Zosyn. 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 Will discontinue subcu heparin after tonight's dose. Continue Pepcid, gabapentin and other medications as above. Recheck labs in a.m. Counseled on diabetes mellitus type 2. 10/22 Continue postoperative care. Pain control. Continue vancomycin with Zosyn. Monitor vancomycin level. Continue IV fluids. DVT prophylaxis with heparin. Recheck labs in a.m. Continue wound care. Counseled on diabetic diet. Replace phosphorus. Check A1c. Add Lantus 10 units daily.
[2019-10-26] MEDS: Enoxaparin Sodium 40 MG/0.4 ML SYRINGE SC SCH (21:26)
[2019-10-27] MEDS: K-Phos Neutral 250 MG TAB PO SCH ×3 (09:11→16:33)
[2019-10-27] MEDS: Famotidine 20 MG TAB PO SCH (09:11)
[2019-10-27] MEDS: Saccharomyces boulardii 250 MG CAP PO SCH (09:11)
[2019-10-27] MEDS: Gabapentin 300 MG CAP PO SCH ×3 (09:11→20:43)
[2019-10-27] MEDS: FLUoxetine HCl 20 MG CAP PO SCH (09:11)
[2019-10-27] MEDS: Insulin Glargine 30 UNITS in Pre-Filled Syringe 1 EACH SC SCH (09:11)
[2019-10-27] MEDS: hydrALAZINE 20 MG/ML VIAL SLOW IVP PRN ×2 (10:33→18:16)
[2019-10-27 10:37] LABS: Hemoglobin 7.9 g/dL (12.0-16.0); Mean Corpuscular HGB CONC 31.5 g/dL (32.0-36.0); Mean Corpuscular Hemoglobin 29.1 pg (27.0-31.0); Mean Corpuscular Volume 92.3 fL (78.0-98.0); Mean Platelet Volume 7.8 fL (7.4-10.4); Platelet Count 314 thou/uL (130-400); RBC Distribution Width 15.2 % (11.5-14.5); Red Blood Cell (RBC) Count 2.71 mill/uL (4.20-5.40); White Blood Cell (WBC) Count 10.1 thou/uL (4.8-10.8)
[2019-10-27 10:38] LABS: #Eosinphils 0.1 thou/uL (0.0-0.7); #Lymphocytes 1.7 thou/uL (1.20-3.40); #Monocytes 0.9 thou/uL (0.11-0.59); #Neutrophils 7.3 thou/uL (1.40-6.50); %Basophils 0.2 % (0.0-1.0); %Eosinophils 1.4 % (0.0-10.0); %Lymphocytes 17.3 % (21.0-51.0); %Monocytes 8.4 % (0.0-10.0); %Neutrophils 72.7 % (42.0-75.0)
[2019-10-27] MEDS ORDERED: Triple Antibiotic Oint 1 GM Packet TOP PRN (12:39)
[2019-10-27] MEDS ORDERED: Polyethylene Glycol 3350 17 GM Packet PO PRN (12:53)
[2019-10-27] MEDS: Insulin Regular 300 UNITS/3 ML VIAL SC PRN ×3 (13:02→20:51)
--- NOTE | 2019-10-27 13:19 | PRG ---
DATE OF SERVICE: 10/27/2019 SUBJECTIVE: Concepcion Cortez is emotional this morning. She reported that she was seeing spots earlier. Without even physically touching her, she was crying and sobbing. She states she is not having pain in her stump. We removed her dressing. Her left BKA stump looks very good. [facility] (MARKET ANALYST) has arrived and stump education research analyst is available. Orders are present to begin washing the stump everyday with soap and water and apply antibiotic ointment, Telfa and a stump education research analyst. I have talked to her about keeping the left knee extended facilitating this by placing pillows or blankets beneath the BKA stump below the knee to facilitate extension and prevent contracture. I have also talked to her about keeping blankets and pillows under her right leg to prevent heel decubitus. I have asked nurses and patient to cooperate to get the patient out of bed into a chair 2 to 3 times a day. Physical therapy is working with her. Insurance approval is pending for transfer to rehab. The patient is ready to go to rehab at any time. Hemoglobin is 7.9 this morning. Basic metabolic profile is normal. Patient is 97.5 degrees, heart rate 95 to 105, blood pressure 163/85. ASSESSMENT AND PLAN: Doing well, slightly anemic. Plan to recheck her CBC in the morning. I am not opposed to transfusing her. I do not know what her visual complaints of black spots are about, but this has happened intermittently. She is emotional this morning. Perhaps she needs an antidepressant. We will leave that to the hospitalist decision. She needs to follow up with Surgery in about 2 to 3 weeks for staple removal. I will see her as needed this hospitalization. We will leave decision to transfuse her or not to the hospitalist. I do not think she has symptomatic anemia and we will recheck her CBC in the morning. Job ID: [id number]
[2019-10-27] MEDS: Ferrous Sulfate 325 MG TAB PO SCH (16:32)
[2019-10-27] MEDS: traMADol HCl 50 MG TAB PO PRN (16:37)
--- NOTE | 2019-10-27 19:20 | PDOC.HOSPP ---
- Subjective Encounter Date: 10/27/19 Encounter Time: 17:00 Subjective: Patient seen and examined for DKA with diabetic foot infection. Feels generally weak and fatigued. Denies any loss of appetite or suicidal ideation. Pain controlled on current regimen. - Objective Vital Signs & Weight: Vital Signs (12 hours) Temp Pulse Resp BP BP BP Pulse Ox 10/27/19 18:16 101 H 177/92 H 10/27/19 16:38 97.7 F 101 H 14 177/92 H 97 10/27/19 13:00 163/85 H 10/27/19 12:28 97.5 F L 105 H 16 163/85 H 97 10/27/19 10:33 95 179/94 H 10/27/19 09:30 97.8 F 94 18 173/91 H 97 10/27/19 08:05 97 Weight Weight 162 lb 0.636 oz Most Recent Monitor Data Heart Rate from ECG 81 NIBP 135/78 NIBP BP-Mean 97 Respiration from ECG 20 SpO2 98 I&O: 10/26/19 10/27/19 10/28/19 06:59 06:59 06:59 Intake Total 3240 444 2221 Output Total 1750 900 Balance -210 990 320 Result Diagrams: 10/27/19 04:23 10/26/19 05:03 Additional Labs: Accuchecks 10/27/19 10/27/19 10/27/19 16:20 10:44 05:33 POC Glucose 223 H 279 H 139 H 10/26/19 21:04 POC Glucose 214 H Hospitalist ROS - Review of Systems Respiratory: denies: cough, dry, shortness of breath, hemoptysis, SOB with excertion, pleuritic pain, sputum, wheezing, other Cardiovascular: denies: chest pain, palpitations, orthopnea, paroxysmal noc. dyspnea, edema, light headedness, other - Medication Medications: Active Medications Generic Name Dose Route Start Last Admin Trade Name Freq PRN Reason Stop Dose Admin Clonidine 0.1 mg 10/21/19 06:29 10/27/19 13:00 Catapres PO 0.1 mg BID PRN Administration SBP > 160 use second Enoxaparin Sodium 40 mg 10/25/19 21:00 10/26/19 21:26 Lovenox SC 40 mg 2100 [facility] Administration Famotidine 20 mg 10/21/19 09:00 10/27/19 09:11 Pepcid PO 20 mg 0900 [facility] Administration Ferrous Sulfate 325 mg 10/27/19 17:00 10/27/19 16:32 Ferrous Sulfate 325 Mg Tab PO 325 mg BID-[facility] Administration Fluoxetine HCl 20 mg 10/24/19 09:00 10/27/19 09:11 Prozac PO 20 mg DAILY [facility] Administration Gabapentin 300 mg 10/22/19 15:00 10/27/19 16:32 Neurontin PO 300 mg TID [facility] Administration Hydralazine HCl 10 mg 10/21/19 06:29 10/27/19 18:16 Apresoline SLOW IVP 10 mg Q6H PRN Administration SBP GREATER THAN 160 Insulin Glargine 30 units/ 0.3 mls @ 0 mls/hr 10/27/19 09:00 10/27/19 09:11 Miscellaneous Medication SC 0.3 mls QAM [facility] Administration Insulin Human Regular 0 units 10/21/19 11:35 10/27/19 18:16 Humulin R SC 6 unit .AGGRESSIVE SLIDING PRN Administration AGGRESSIVE SLIDING SCALE Protocol Morphine Sulfate 2 mg 10/21/19 06:29 10/22/19 03:47 Morphine SLOW IVP 2 mg Q4H PRN Administration severe pain 4-10 Neomycin/Polymyxin/Bacitracin 1 gm 10/27/19 12:39 10/27/19 13:01 Triple Antibiotic Oint 1 Gm Packet TOP 1 gm PRN PRN Administration DRESSING CHANGE Ondansetron HCl 4 mg 10/21/19 06:29 10/21/19 12:59 Zofran IVP 4 mg Q6H PRN Administration Nausea/Vomiting use 1st Phosphorus 500 mg 10/23/19 17:00 10/27/19 16:33 Kphos Neutral PO 500 mg TID-[facility] Administration Saccharomyces Boulardii 250 mg 10/24/19 09:00 10/27/19 09:11 Florastor PO 250 mg DAILY [facility] Administration Sodium Chloride 10 ml 10/22/19 21:00 10/27/19 09:11 Flush - Normal Saline IVF 10 ml Q12HR [facility] Administration Tramadol HCl 50 mg 10/22/19 12:46 10/27/19 16:37 Ultram PO 50 mg Q4H PRN Administration Moderate Pain (4-6) - Exam General Appearance: NAD Heart: RRR, no gallops Respiratory: no wheezes, no ronchi Gastrointestinal: soft, non-tender, normal bowel sounds Extremities: no cyanosis Extremities - other findings: Lower extremity wound dressing Hosp A/P (1) Sepsis with acute organ dysfunction Code(s): A41.9 - SEPSIS, UNSPECIFIED ORGANISM; R65.20 - SEVERE SEPSIS WITHOUT SEPTIC SHOCK Status: Acute (2) Gangrene of left foot Code(s): I96 - GANGRENE, NOT ELSEWHERE CLASSIFIED Status: Acute (3) DKA (diabetic ketoacidosis) Code(s): E11.10 - TYPE 2 DIABETES MELLITUS WITH KETOACIDOSIS WITHOUT COMA Status: Acute Qualifiers: Diabetes mellitus type: type 2 (4) Acute kidney injury superimposed on CKD Code(s): N17.9 - ACUTE KIDNEY FAILURE, UNSPECIFIED; N18.9 - CHRONIC KIDNEY DISEASE, UNSPECIFIED Status: Acute (5) Osteomyelitis of left foot Code(s): M86.9 - OSTEOMYELITIS, UNSPECIFIED Status: Acute (6) Hypophosphatemia Code(s): E83.39 - OTHER DISORDERS OF PHOSPHORUS METABOLISM Status: Acute (7) Chronic anemia Code(s): D64.9 - ANEMIA, UNSPECIFIED Status: Chronic (8) Depressive disorder in remission Code(s): F32.9 - MAJOR DEPRESSIVE DISORDER, SINGLE EPISODE, UNSPECIFIED Status: Chronic (9) Diabetes mellitus, type 2 Status: Chronic Qualifiers: Chronic kidney disease stage: stage 2 (mild) (10) HTN (hypertension) Code(s): I10 - ESSENTIAL (PRIMARY) HYPERTENSION Status: Chronic - Plan Summary:64-year-old female with diabetes mellitus type 2 and hypertension presented to the emergency room with generalized weakness and fall. His work-up was consistent with sepsis due to diabetic left foot infection/gangrene with diabetic ketoacidosis. She was started on insulin drip. 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 10/26 Blood pressure uncontrolled. Will resume home ANSHUL inhibitor with diuretic. Restart amlodipine. Intermittent pain probably contributing to elevated blood pressure. Continue Lantus at 30 units daily with sliding scale continue Lovenox for DVT prophylaxis. We will continue gabapentin and Prozac. Patient is refusing any new medication for anxiety. Recheck CBC in a.m. Await inpatient rehab placement. 10/25 Diarrhea has resolved. Antibiotic discontinued. Increase Lantus to 30 units daily. Continue gabapentin and other medications as above. Patient is stable for discharge awaiting inpatient rehab placement. Continue sliding scale. DVT prophylaxis.. Recheck CBC in a.m. 10/24 Off check stool for C. difficile. Continue IV vancomycin with Zosyn. Monitor vancomycin level. Continue current dose of Lantus with sliding scale. Gabapentin started. Continue other medications as above. Physical therapy consultation. Patient will require inpatient rehab evaluation. 10/23 Change insulin to 10 units Lantus twice daily. Continue IV vancomycin with Zosyn. 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 Will discontinue subcu heparin after tonight's dose. Continue Pepcid, gabapentin and other medications as above. Recheck labs in a.m. Counseled on diabetes mellitus type 2. 10/22 Continue postoperative care. Pain control. Continue vancomycin with Zosyn. Monitor vancomycin level. Continue IV fluids. DVT prophylaxis with heparin. Recheck labs in a.m. Continue wound care. Counseled on diabetic diet. Replace phosphorus. Check A1c. Add Lantus 10 units daily.
[2019-10-27] MEDS: Amlodipine 10 MG TAB PO SCH (20:43)
[2019-10-27] MEDS: Enoxaparin Sodium 40 MG/0.4 ML SYRINGE SC SCH (20:44)
[2019-10-28 05:32] LABS: #Eosinphils 0.2 thou/uL (0.0-0.7); #Lymphocytes 1.8 thou/uL (1.20-3.40); #Monocytes 0.8 thou/uL (0.11-0.59); #Neutrophils 6.6 thou/uL (1.40-6.50); %Basophils 0.2 % (0.0-1.0); %Eosinophils 1.7 % (0.0-10.0); %Lymphocytes 19.3 % (21.0-51.0); %Monocytes 8.9 % (0.0-10.0); %Neutrophils 69.9 % (42.0-75.0); Hemoglobin 8.4 g/dL (12.0-16.0); Mean Corpuscular HGB CONC 31.1 g/dL (32.0-36.0); Mean Corpuscular Hemoglobin 28.6 pg (27.0-31.0); Platelet Count 326 thou/uL (130-400); RBC Distribution Width 16.1 % (11.5-14.5); Red Blood Cell (RBC) Count 2.94 mill/uL (4.20-5.40); White Blood Cell (WBC) Count 9.4 thou/uL (4.8-10.8)
[2019-10-28] MEDS ORDERED: HYDROCHLOROTHIAZIDE PO SCH (09:00)
[2019-10-28] MEDS ORDERED: ENALAPRIL PO SCH (09:00)
[2019-10-28] MEDS ORDERED: [UNRECOGNIZED DRUG - OTHER] PO SCH (09:00)
[2019-10-28] MEDS: Multivit, Therapeutic 1 TAB PO SCH (09:15)
[2019-10-28] MEDS: Gabapentin 300 MG CAP PO SCH ×3 (09:15→21:06)
[2019-10-28] MEDS: Famotidine 20 MG TAB PO SCH (09:15)
[2019-10-28] MEDS: FLUoxetine HCl 20 MG CAP PO SCH (09:15)
[2019-10-28] MEDS: Hydrochlorothiazide 25 MG TAB PO SCH (09:16)
[2019-10-28] MEDS: Lisinopril 10 MG TAB PO SCH (09:16)
[2019-10-28] MEDS: Ferrous Sulfate 325 MG TAB PO SCH ×2 (09:16→16:08)
[2019-10-28] MEDS: Saccharomyces boulardii 250 MG CAP PO SCH (09:17)
[2019-10-28] MEDS: K-Phos Neutral 250 MG TAB PO SCH ×3 (09:21→16:08)
[2019-10-28] MEDS: Insulin Glargine 30 UNITS in Pre-Filled Syringe 1 EACH SC SCH (09:24)
[2019-10-28] MEDS: traMADol HCl 50 MG TAB PO PRN (09:28)
[2019-10-28] MEDS: Ibuprofen 600 MG TAB PO PRN (12:32)
[2019-10-28] MEDS: Insulin Regular 300 UNITS/3 ML VIAL SC PRN (12:33)
[2019-10-28] MEDS: Amlodipine 10 MG TAB PO SCH (21:04)
[2019-10-28] MEDS: Enoxaparin Sodium 40 MG/0.4 ML SYRINGE SC SCH (21:06)
--- NOTE | 2019-10-28 21:07 | PDOC.HOSPP ---
- Subjective Encounter Date: 10/28/19 Encounter Time: 08:30 Subjective: Patient seen and examined for diabetic foot infections with DKA. No new overnight events. Pain controlled. No fever or chills - Objective Vital Signs & Weight: Vital Signs (12 hours) Temp Pulse Resp BP BP BP Pulse Ox 10/28/19 19:47 97.4 F L 77 17 117/71 96 10/28/19 16:09 97.7 F 78 16 120/72 97 10/28/19 12:05 98.0 F 89 16 138/77 96 10/28/19 09:16 148/77 H Weight Weight 162 lb 0.636 oz Most Recent Monitor Data Heart Rate from ECG 81 NIBP 135/78 NIBP BP-Mean 97 Respiration from ECG 20 SpO2 98 I&O: 10/27/19 10/28/19 10/29/19 06:59 06:59 06:59 Intake Total 990 1700 1800 Output Total 1250 Balance 750 548 3677 Result Diagrams: 10/28/19 05:08 10/26/19 05:03 Additional Labs: Accuchecks 10/28/19 10/28/19 10/28/19 20:00 15:54 10:57 POC Glucose 140 H 128 H 298 H 10/28/19 05:58 POC Glucose 100 Hospitalist ROS - Review of Systems Respiratory: denies: cough, dry, shortness of breath, hemoptysis, SOB with excertion, pleuritic pain, sputum, wheezing, other Cardiovascular: denies: chest pain, palpitations, orthopnea, paroxysmal noc. dyspnea, edema, light headedness, other - Medication Medications: Active Medications Generic Name Dose Route Start Last Admin Trade Name Freq PRN Reason Stop Dose Admin Amlodipine Besylate 10 mg 10/27/19 21:00 10/27/19 20:43 Amlodipine 10 Mg Tab PO 10 mg HS [facility] Administration Clonidine 0.1 mg 10/21/19 06:29 10/27/19 13:00 Catapres PO 0.1 mg BID PRN Administration SBP > 160 use second Enoxaparin Sodium 40 mg 10/25/19 21:00 10/27/19 20:44 Lovenox SC 40 mg 2100 HUMBLE Administration Famotidine 20 mg 10/21/19 09:00 10/28/19 09:15 Pepcid PO 20 mg 0900 [facility]UM[facility] Administration Ferrous Sulfate 325 mg 10/27/19 17:00 10/28/19 16:08 Ferrous Sulfate 325 Mg Tab PO 325 mg BID-WM [facility] Administration Fluoxetine HCl 20 mg 10/24/19 09:00 10/28/19 09:15 Prozac PO 20 mg DAILY [facility] Administration Gabapentin 300 mg 10/22/19 15:00 10/28/19 16:08 Neurontin PO 300 mg TID [facility] Administration Hydralazine HCl 10 mg 10/21/19 06:29 10/27/19 18:16 Apresoline SLOW IVP 10 mg Q6H PRN Administration SBP GREATER THAN 160 Hydrochlorothiazide 25 mg 10/28/19 09:00 10/28/19 09:16 Hydrochlorothiazide 25 Mg Tab PO 25 mg DAILY [facility] Administration Insulin Glargine 30 units/ 0.3 mls @ 0 mls/hr 10/27/19 09:00 10/28/19 09:24 Miscellaneous Medication SC 0.3 mls QAM [facility]UM[facility] Administration Ibuprofen 600 mg 10/25/19 18:28 10/28/19 12:32 Motrin PO 600 mg Q6H PRN Administration Pain Insulin Human Regular 0 units 10/21/19 11:35 10/28/19 12:33 Humulin R SC 9 unit .AGGRESSIVE SLIDING PRN Administration AGGRESSIVE SLIDING SCALE Protocol Lisinopril 10 mg 10/28/19 09:00 10/28/19 09:16 Lisinopril 10 Mg Tab PO 10 mg DAILY [facility] Administration Morphine Sulfate 2 mg 10/21/19 06:29 10/22/19 03:47 Morphine SLOW IVP 2 mg Q4H PRN Administration severe pain 4-10 Multivitamins 1 tab 10/28/19 09:00 10/28/19 09:15 Multivit, Therapeutic 1 Tab PO 1 tab DAILY [facility] Administration Neomycin/Polymyxin/Bacitracin 1 gm 10/27/19 12:39 10/27/19 13:01 Triple Antibiotic Oint 1 Gm Packet TOP 1 gm PRN PRN Administration DRESSING CHANGE Ondansetron HCl 4 mg 10/21/19 06:29 10/21/19 12:59 Zofran IVP 4 mg Q6H PRN Administration Nausea/Vomiting use 1st Phosphorus 500 mg 10/23/19 17:00 10/28/19 16:08 Kphos Neutral PO 500 mg TID-[facility] Administration Polyethylene Glycol 17 gm 10/27/19 12:53 10/28/19 09:28 Polyethylene Glycol 3350 17 Gm Packet PO 17 gm DAILYPRN PRN Administration Constipation Saccharomyces Boulardii 250 mg 10/24/19 09:00 10/28/19 09:17 Florastor PO 250 mg DAILY [facility] Administration Sodium Chloride 10 ml 10/22/19 21:00 10/28/19 09:18 Flush - Normal Saline IVF 10 ml Q12HR [facility] Administration Tramadol HCl 50 mg 10/22/19 12:46 10/28/19 09:28 Ultram PO 50 mg Q4H PRN Administration Moderate Pain (4-6) - Exam General Appearance: NAD Neck: supple, no JVD Heart: RRR, no gallops Respiratory: no rales, no ronchi Gastrointestinal: soft, non-distended Hosp A/P (1) Sepsis with acute organ dysfunction Code(s): A41.9 - SEPSIS, UNSPECIFIED ORGANISM; R65.20 - SEVERE SEPSIS WITHOUT SEPTIC SHOCK Status: Acute (2) Gangrene of left foot Code(s): I96 - GANGRENE, NOT ELSEWHERE CLASSIFIED Status: Acute (3) DKA (diabetic ketoacidosis) Code(s): E11.10 - TYPE 2 DIABETES MELLITUS WITH KETOACIDOSIS WITHOUT COMA Status: Acute Qualifiers: Diabetes mellitus type: type 2 (4) Acute kidney injury superimposed on CKD Code(s): N17.9 - ACUTE KIDNEY FAILURE, UNSPECIFIED; N18.9 - CHRONIC KIDNEY DISEASE, UNSPECIFIED Status: Acute (5) Osteomyelitis of left foot Code(s): M86.9 - OSTEOMYELITIS, UNSPECIFIED Status: Acute (6) Hypophosphatemia Code(s): E83.39 - OTHER DISORDERS OF PHOSPHORUS METABOLISM Status: Acute (7) Chronic anemia Code(s): D64.9 - ANEMIA, UNSPECIFIED Status: Chronic (8) Depressive disorder in remission Code(s): F32.9 - MAJOR DEPRESSIVE DISORDER, SINGLE EPISODE, UNSPECIFIED Status: Chronic (9) Diabetes mellitus, type 2 Status: Chronic Qualifiers: Chronic kidney disease stage: stage 2 (mild) (10) HTN (hypertension) Code(s): I10 - ESSENTIAL (PRIMARY) HYPERTENSION Status: Chronic - Plan Summary:64-year-old female with diabetes mellitus type 2 and hypertension presented to the emergency room with generalized weakness and fall. His work-up was consistent with sepsis due to diabetic left foot infection/gangrene with diabetic ketoacidosis. She was started on insulin drip. 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 10/27 Continue current dose of Lantus with sliding scale. Continue lisinopril, hydrochlorothiazide with amlodipine. Continue other medications as above. Await inpatient rehab placement. Patient is stable for discharge. 10/26 Blood pressure uncontrolled. Will resume home ANSHUL inhibitor with diuretic. Restart amlodipine. Intermittent pain probably contributing to elevated blood pressure. Continue Lantus at 30 units daily with sliding scale continue Lovenox for DVT prophylaxis. We will continue gabapentin and Prozac. Patient is refusing any new medication for anxiety. Recheck CBC in a.m. Await inpatient rehab placement. 10/25 Diarrhea has resolved. Antibiotic discontinued. Increase Lantus to 30 units daily. Continue gabapentin and other medications as above. Patient is stable for discharge awaiting inpatient rehab placement. Continue sliding scale. DVT prophylaxis.. Recheck CBC in a.m. 10/24 Off check stool for C. difficile. Continue IV vancomycin with Zosyn. Monitor vancomycin level. Continue current dose of Lantus with sliding scale. Gabapentin started. Continue other medications as above. Physical therapy consultation. Patient will require inpatient rehab evaluation. 10/23 Change insulin to 10 units Lantus twice daily. Continue IV vancomycin with Zosyn. 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 Will discontinue subcu heparin after tonight's dose. Continue Pepcid, gabapentin and other medications as above. Recheck labs in a.m. Counseled on diabetes mellitus type 2. 10/22 Continue postoperative care. Pain control. Continue vancomycin with Zosyn. Monitor vancomycin level. Continue IV fluids. DVT prophylaxis with heparin. Recheck labs in a.m. Continue wound care. Counseled on diabetic diet. Replace phosphorus. Check A1c. Add Lantus 10 units daily.
[2019-10-29] MEDS: FLUoxetine HCl 20 MG CAP PO SCH (09:20)
[2019-10-29] MEDS: Ferrous Sulfate 325 MG TAB PO SCH ×2 (09:20→16:33)
[2019-10-29] MEDS: Hydrochlorothiazide 25 MG TAB PO SCH (09:20)
[2019-10-29] MEDS: Famotidine 20 MG TAB PO SCH (09:20)
[2019-10-29] MEDS: Gabapentin 300 MG CAP PO SCH ×3 (09:21→20:09)
[2019-10-29] MEDS: Saccharomyces boulardii 250 MG CAP PO SCH (09:21)
[2019-10-29] MEDS: Lisinopril 10 MG TAB PO SCH (09:21)
[2019-10-29] MEDS: Multivit, Therapeutic 1 TAB PO SCH (09:21)
[2019-10-29] MEDS: Insulin Glargine 30 UNITS in Pre-Filled Syringe 1 EACH SC SCH (09:22)
[2019-10-29] MEDS: K-Phos Neutral 250 MG TAB PO SCH ×3 (11:52→16:33)
[2019-10-29] MEDS: Insulin Regular 300 UNITS/3 ML VIAL SC PRN ×2 (12:48→16:33)
--- NOTE | 2019-10-29 17:17 | PDOC.HOSPP ---
- Subjective Encounter Date: 10/29/19 Encounter Time: 14:00 Subjective: Patient seen and examined for diabetic foot infection. Pain controlled at this time. Denies any new complaints. No fever or chills. - Objective Vital Signs & Weight: Vital Signs (12 hours) Temp Pulse Resp BP BP Pulse Ox 10/29/19 16:21 97.8 F 98 14 163/83 H 98 10/29/19 12:31 98 F 94 18 164/78 H 97 10/29/19 09:21 170/90 H 10/29/19 08:00 98.3 F 100 14 170/90 H 96 Weight Weight 162 lb 0.636 oz Most Recent Monitor Data Heart Rate from ECG 81 NIBP 135/78 NIBP BP-Mean 97 Respiration from ECG 20 SpO2 98 I&O: 10/28/19 10/29/19 10/30/19 06:59 06:59 06:59 Intake Total 1700 2210 440 Output Total 1250 800 Balance 450 1410 440 Result Diagrams: 10/28/19 05:08 10/26/19 05:03 Additional Labs: Accuchecks 10/29/19 10/29/19 10/29/19 16:17 12:18 06:03 POC Glucose 167 H 151 H 105 H 10/28/19 10/28/19 20:00 15:54 POC Glucose 140 H 128 H Hospitalist ROS - Review of Systems Cardiovascular: denies: chest pain, palpitations, orthopnea, paroxysmal noc. dyspnea, edema, light headedness, other Gastrointestinal: denies: nausea, vomiting, abdominal pain, diarrhea, constipation, melena, hematochezia, other - Medication Medications: Active Medications Generic Name Dose Route Start Last Admin Trade Name Freq PRN Reason Stop Dose Admin Amlodipine Besylate 10 mg 10/27/19 21:00 10/28/19 21:04 Amlodipine 10 Mg Tab PO Not Given HS [facility]UMBLE Clonidine 0.1 mg 10/21/19 06:29 10/27/19 13:00 Catapres PO 0.1 mg BID PRN Administration SBP > 160 use second Enoxaparin Sodium 40 mg 10/25/19 21:00 10/28/19 21:06 Lovenox SC 40 mg 2100 [facility]UMBLE Administration Famotidine 20 mg 10/21/19 09:00 10/29/19 09:20 Pepcid PO 20 mg 0900 [facility]UM[facility] Administration Ferrous Sulfate 325 mg 10/27/19 17:00 10/29/19 16:33 Ferrous Sulfate 325 Mg Tab PO 325 mg BID[facility] Administration Fluoxetine HCl 20 mg 10/24/19 09:00 10/29/19 09:20 Prozac PO 20 mg DAILY [facility] Administration Gabapentin 300 mg 10/22/19 15:00 10/29/19 14:55 Neurontin PO 300 mg TID [facility] Administration Hydralazine HCl 10 mg 10/21/19 06:29 10/27/19 18:16 Apresoline SLOW IVP 10 mg Q6H PRN Administration SBP GREATER THAN 160 Hydrochlorothiazide 25 mg 10/28/19 09:00 10/29/19 09:20 Hydrochlorothiazide 25 Mg Tab PO 25 mg DAILY [facility] Administration Insulin Glargine 30 units/ 0.3 mls @ 0 mls/hr 10/27/19 09:00 10/29/19 09:22 Miscellaneous Medication SC 0.3 mls QAM [facility] Administration Ibuprofen 600 mg 10/25/19 18:28 10/28/19 12:32 Motrin PO 600 mg Q6H PRN Administration Pain Insulin Human Regular 0 units 10/21/19 11:35 10/29/19 16:33 Humulin R SC 3 unit .AGGRESSIVE SLIDING PRN Administration AGGRESSIVE SLIDING SCALE Protocol Lisinopril 10 mg 10/28/19 09:00 10/29/19 09:21 Lisinopril 10 Mg Tab PO 10 mg DAILY [facility] Administration Morphine Sulfate 2 mg 10/21/19 06:29 10/22/19 03:47 Morphine SLOW IVP 2 mg Q4H PRN Administration severe pain 4-10 Multivitamins 1 tab 10/28/19 09:00 10/29/19 09:21 Multivit, Therapeutic 1 Tab PO 1 tab DAILY [facility] Administration Neomycin/Polymyxin/Bacitracin 1 gm 10/27/19 12:39 10/27/19 13:01 Triple Antibiotic Oint 1 Gm Packet TOP 1 gm PRN PRN Administration DRESSING CHANGE Ondansetron HCl 4 mg 10/21/19 06:29 10/21/19 12:59 Zofran IVP 4 mg Q6H PRN Administration Nausea/Vomiting use 1st Phosphorus 500 mg 10/23/19 17:00 10/29/19 16:33 Kphos Neutral PO 500 mg TID-WM [facility] Administration Polyethylene Glycol 17 gm 10/27/19 12:53 10/28/19 09:28 Polyethylene Glycol 3350 17 Gm Packet PO 17 gm DAILYPRN PRN Administration Constipation Saccharomyces Boulardii 250 mg 10/24/19 09:00 10/29/19 09:21 Florastor PO 250 mg DAILY [facility] Administration Sodium Chloride 10 ml 10/22/19 21:00 10/29/19 09:27 Flush - Normal Saline IVF 10 ml Q12HR [facility] Administration Tramadol HCl 50 mg 10/22/19 12:46 10/28/19 09:28 Ultram PO 50 mg Q4H PRN Administration Moderate Pain (4-6) - Exam General Appearance: NAD Neck: supple, no JVD Heart: RRR, no gallops Respiratory: no wheezes, no ronchi Gastrointestinal: soft, non-distended, normal bowel sounds Extremities: no cyanosis Extremities - other findings: Wound dressing noted Neurological: no new deficit Hosp A/P (1) Sepsis with acute organ dysfunction Code(s): A41.9 - SEPSIS, UNSPECIFIED ORGANISM; R65.20 - SEVERE SEPSIS WITHOUT SEPTIC SHOCK Status: Acute (2) Gangrene of left foot Code(s): I96 - GANGRENE, NOT ELSEWHERE CLASSIFIED Status: Acute (3) DKA (diabetic ketoacidosis) Code(s): E11.10 - TYPE 2 DIABETES MELLITUS WITH KETOACIDOSIS WITHOUT COMA Qualifiers: Diabetes mellitus type: type 2 (4) Acute kidney injury superimposed on CKD Code(s): N17.9 - ACUTE KIDNEY FAILURE, UNSPECIFIED; N18.9 - CHRONIC KIDNEY DISEASE, UNSPECIFIED Status: Acute (5) Osteomyelitis of left foot Code(s): M86.9 - OSTEOMYELITIS, UNSPECIFIED Status: Acute (6) Hypophosphatemia Code(s): E83.39 - OTHER DISORDERS OF PHOSPHORUS METABOLISM Status: Acute (7) Chronic anemia Code(s): D64.9 - ANEMIA, UNSPECIFIED Status: Chronic (8) Depressive disorder in remission Code(s): F32.9 - MAJOR DEPRESSIVE DISORDER, SINGLE EPISODE, UNSPECIFIED Status: Chronic (9) Diabetes mellitus, type 2 Status: Chronic Qualifiers: Chronic kidney disease stage: stage 2 (mild) (10) HTN (hypertension) Code(s): I10 - ESSENTIAL (PRIMARY) HYPERTENSION Status: Chronic - Plan DVT proph w/lovenox Summary:64-year-old female with diabetes mellitus type 2 and hypertension presented to the emergency room with generalized weakness and fall. His work-up was consistent with sepsis due to diabetic left foot infection/gangrene with diabetic ketoacidosis. She was started on insulin drip. 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 10/28 Awaiting placement. Insurance declined inpatient rehab placement. I have left voicemail for peer to peer. Will await for the phone call from the insurance company. Continue current dose of Lantus with lisinopril, amlodipine and sliding scale. Will recheck labs in a.m. 10/27 Continue current dose of Lantus with sliding scale. Continue lisinopril, hydrochlorothiazide with amlodipine. Continue other medications as above. Await inpatient rehab placement. Patient is stable for discharge. 10/26 Blood pressure uncontrolled. Will resume home ANSHUL inhibitor with diuretic. Restart amlodipine. Intermittent pain probably contributing to elevated blood pressure. Continue Lantus at 30 units daily with sliding scale continue Lovenox for DVT prophylaxis. We will continue gabapentin and Prozac. Patient is refusing any new medication for anxiety. Recheck CBC in a.m. Await inpatient rehab placement. 10/25 Diarrhea has resolved. Antibiotic discontinued. Increase Lantus to 30 units daily. Continue gabapentin and other medications as above. Patient is stable for discharge awaiting inpatient rehab placement. Continue sliding scale. DVT prophylaxis.. Recheck CBC in a.m. 10/24 Off check stool for C. difficile. Continue IV vancomycin with Zosyn. Monitor vancomycin level. Continue current dose of Lantus with sliding scale. Gabapentin started. Continue other medications as above. Physical therapy consultation. Patient will require inpatient rehab evaluation. 10/23 Change insulin to 10 units Lantus twice daily. Continue IV vancomycin with Zosyn. 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 Will discontinue subcu heparin after tonight's dose. Continue Pepcid, gabapentin and other medications as above. Recheck labs in a.m. Counseled on diabetes mellitus type 2. 10/22 Continue postoperative care. Pain control. Continue vancomycin with Zosyn. Monitor vancomycin level. Continue IV fluids. DVT prophylaxis with heparin. Recheck labs in a.m. Continue wound care. Counseled on diabetic diet. Replace phosphorus. Check A1c. Add Lantus 10 units daily.
[2019-10-29] MEDS: Enoxaparin Sodium 40 MG/0.4 ML SYRINGE SC SCH (20:09)
[2019-10-29] MEDS: Amlodipine 10 MG TAB PO SCH (20:09)
[2019-10-29] MEDS: Ibuprofen 600 MG TAB PO PRN (20:11)
[2019-10-30 06:18] LABS: #Basophils 0.1 thou/uL (0.0-0.2); #Eosinphils 0.1 thou/uL (0.0-0.7); #Monocytes 0.7 thou/uL (0.11-0.59); %Basophils 0.8 % (0.0-1.0); %Eosinophils 1.9 % (0.0-10.0); %Lymphocytes 28.8 % (21.0-51.0); %Monocytes 10.3 % (0.0-10.0); %Neutrophils 58.3 % (42.0-75.0); Hemoglobin 8.4 g/dL (12.0-16.0); Mean Corpuscular HGB CONC 31.3 g/dL (32.0-36.0); Mean Corpuscular Hemoglobin 28.8 pg (27.0-31.0); Mean Platelet Volume 7.9 fL (7.4-10.4); Platelet Count 343 thou/uL (130-400); RBC Distribution Width 16.2 % (11.5-14.5); White Blood Cell (WBC) Count 6.9 thou/uL (4.8-10.8)
[2019-10-30 06:30] LABS: Anion Gap 12 mmol/L (10-20); BUN (Urea Nitrogen) 19 mg/dL (9.8-20.1); Calc. Creatinine Clearance 58 mL/min (70-130); Carbon Dioxide 27 mmol/L (23-31); Chloride 104 mmol/L (98-107); Estimated GFR-MDRD 49; Glucose 156 mg/dL (80-115); Magnesium 2.1 mg/dL (1.6-2.6); Potassium 4.2 mmol/L (3.5-5.1); Sodium 139 mmol/L (136-145)
[2019-10-30] MEDS: Multivit, Therapeutic 1 TAB PO SCH (09:01)
[2019-10-30] MEDS: K-Phos Neutral 250 MG TAB PO SCH ×3 (09:01→16:15)
[2019-10-30] MEDS: Famotidine 20 MG TAB PO SCH (09:02)
[2019-10-30] MEDS: Ferrous Sulfate 325 MG TAB PO SCH ×2 (09:02→16:16)
[2019-10-30] MEDS: Insulin Glargine 30 UNITS in Pre-Filled Syringe 1 EACH SC SCH (09:02)
[2019-10-30] MEDS: FLUoxetine HCl 20 MG CAP PO SCH (09:02)
[2019-10-30] MEDS: Saccharomyces boulardii 250 MG CAP PO SCH (09:02)
[2019-10-30] MEDS: Hydrochlorothiazide 25 MG TAB PO SCH (09:02)
[2019-10-30] MEDS: Lisinopril 10 MG TAB PO SCH (09:02)
[2019-10-30] MEDS: Gabapentin 300 MG CAP PO SCH ×3 (09:02→21:27)
[2019-10-30] MEDS: Insulin Regular 300 UNITS/3 ML VIAL SC PRN ×3 (12:17→21:27)
--- NOTE | 2019-10-30 18:40 | PDOC.HOSPP ---
- Subjective Encounter Date: 10/30/19 Encounter Time: 18:38 Subjective: Patient seen and examined for diabetic foot infection. Denies any fever, chills, nausea or chest pain. No new complaints. - Objective Vital Signs & Weight: Vital Signs (12 hours) Temp Pulse Resp BP BP Pulse Ox 10/30/19 14:52 97.8 F 88 18 145/71 H 93 L 10/30/19 11:30 97.6 F 85 18 153/81 H 96 10/30/19 09:02 137/78 95 10/30/19 07:38 97.4 F L 78 18 137/78 95 Weight Weight 162 lb 0.636 oz Most Recent Monitor Data Heart Rate from ECG 81 NIBP 135/78 NIBP BP-Mean 97 Respiration from ECG 20 SpO2 98 I&O: 10/29/19 10/30/19 10/31/19 06:59 06:59 06:59 Intake Total 2210 1050 830 Output Total 800 Balance 1410 1050 830 Result Diagrams: 10/30/19 05:50 10/30/19 05:50 Additional Labs: Accuchecks 10/30/19 10/30/19 10/30/19 16:44 12:10 06:03 POC Glucose 183 H 294 H 145 H 10/29/19 20:28 POC Glucose 161 H Hospitalist ROS - Review of Systems Respiratory: denies: cough, dry, shortness of breath, hemoptysis, SOB with excertion, pleuritic pain, sputum, wheezing, other Cardiovascular: denies: chest pain, palpitations, orthopnea, paroxysmal noc. dyspnea, edema, light headedness, other - Medication Medications: Active Medications Generic Name Dose Route Start Last Admin Trade Name Freq PRN Reason Stop Dose Admin Amlodipine Besylate 10 mg 10/27/19 21:00 10/29/19 20:09 Amlodipine 10 Mg Tab PO 10 mg HS HUMBLE Administration Clonidine 0.1 mg 10/21/19 06:29 10/27/19 13:00 Catapres PO 0.1 mg BID PRN Administration SBP > 160 use second Enoxaparin Sodium 40 mg 10/25/19 21:00 10/29/19 20:09 Lovenox SC 40 mg 2100 HUMBLE Administration Famotidine 20 mg 10/21/19 09:00 10/30/19 09:02 Pepcid PO 20 mg 0900 HUMBLE Administration Ferrous Sulfate 325 mg 10/27/19 17:00 10/30/19 16:16 Ferrous Sulfate 325 Mg Tab PO 325 mg BID-WM HUMBLE Administration Fluoxetine HCl 20 mg 10/24/19 09:00 10/30/19 09:02 Prozac PO 20 mg DAILY HUMBLE Administration Gabapentin 300 mg 10/22/19 15:00 10/30/19 14:26 Neurontin PO 300 mg TID HUMBLE Administration Hydralazine HCl 10 mg 10/21/19 06:29 10/27/19 18:16 Apresoline SLOW IVP 10 mg Q6H PRN Administration SBP GREATER THAN 160 Hydrochlorothiazide 25 mg 10/28/19 09:00 10/30/19 09:02 Hydrochlorothiazide 25 Mg Tab PO 25 mg DAILY HUMBLE Administration Insulin Glargine 30 units/ 0.3 mls @ 0 mls/hr 10/27/19 09:00 10/30/19 09:02 Miscellaneous Medication SC 0.3 mls QAM HUMBLE Administration Ibuprofen 600 mg 10/25/19 18:28 10/29/19 20:11 Motrin PO 600 mg Q6H PRN Administration Pain Insulin Human Regular 0 units 10/21/19 11:35 10/30/19 16:38 Humulin R SC 3 unit .AGGRESSIVE SLIDING PRN Administration AGGRESSIVE SLIDING SCALE Protocol Lisinopril 10 mg 10/28/19 09:00 10/30/19 09:02 Lisinopril 10 Mg Tab PO 10 mg DAILY HUMBLE Administration Morphine Sulfate 2 mg 10/21/19 06:29 10/22/19 03:47 Morphine SLOW IVP 2 mg Q4H PRN Administration severe pain 4-10 Multivitamins 1 tab 10/28/19 09:00 10/30/19 09:01 Multivit, Therapeutic 1 Tab PO 1 tab DAILY HUMBLE Administration Neomycin/Polymyxin/Bacitracin 1 gm 10/27/19 12:39 10/27/19 13:01 Triple Antibiotic Oint 1 Gm Packet TOP 1 gm PRN PRN Administration DRESSING CHANGE Ondansetron HCl 4 mg 10/21/19 06:29 10/21/19 12:59 Zofran IVP 4 mg Q6H PRN Administration Nausea/Vomiting use 1st Phosphorus 500 mg 10/23/19 17:00 10/30/19 16:15 Kphos Neutral PO 500 mg TID-WM HUMBLE Administration Polyethylene Glycol 17 gm 10/27/19 12:53 10/28/19 09:28 Polyethylene Glycol 3350 17 Gm Packet PO 17 gm DAILYPRN PRN Administration Constipation Saccharomyces Boulardii 250 mg 10/24/19 09:00 10/30/19 09:02 Florastor PO 250 mg DAILY HUMBLE Administration Sodium Chloride 10 ml 10/22/19 21:00 10/30/19 09:02 Flush - Normal Saline IVF 10 ml Q12HR HUMBLE Administration Tramadol HCl 50 mg 10/22/19 12:46 10/28/19 09:28 Ultram PO 50 mg Q4H PRN Administration Moderate Pain (4-6) - Exam General Appearance: NAD Neck: supple, no JVD Heart: RRR, no gallops Respiratory: no wheezes, no ronchi Gastrointestinal: soft, non-distended Extremities: no cyanosis Hosp A/P (1) Sepsis with acute organ dysfunction Code(s): A41.9 - SEPSIS, UNSPECIFIED ORGANISM; R65.20 - SEVERE SEPSIS WITHOUT SEPTIC SHOCK Status: Acute (2) Gangrene of left foot Code(s): I96 - GANGRENE, NOT ELSEWHERE CLASSIFIED Status: Acute (3) DKA (diabetic ketoacidosis) Code(s): E11.10 - TYPE 2 DIABETES MELLITUS WITH KETOACIDOSIS WITHOUT COMA Qualifiers: Diabetes mellitus type: type 2 (4) Acute kidney injury superimposed on CKD Code(s): N17.9 - ACUTE KIDNEY FAILURE, UNSPECIFIED; N18.9 - CHRONIC KIDNEY DISEASE, UNSPECIFIED Status: Acute (5) Osteomyelitis of left foot Code(s): M86.9 - OSTEOMYELITIS, UNSPECIFIED Status: Acute (6) Hypophosphatemia Code(s): E83.39 - OTHER DISORDERS OF PHOSPHORUS METABOLISM Status: Acute (7) Chronic anemia Code(s): D64.9 - ANEMIA, UNSPECIFIED Status: Chronic (8) Depressive disorder in remission Code(s): F32.9 - MAJOR DEPRESSIVE DISORDER, SINGLE EPISODE, UNSPECIFIED Status: Chronic (9) Diabetes mellitus, type 2 Status: Chronic Qualifiers: Chronic kidney disease stage: stage 2 (mild) (10) HTN (hypertension) Code(s): I10 - ESSENTIAL (PRIMARY) HYPERTENSION Status: Chronic - Plan Summary:64-year-old female with diabetes mellitus type 2 and hypertension presented to the emergency room with generalized weakness and fall. His work-up was consistent with sepsis due to diabetic left foot infection/gangrene with diabetic ketoacidosis. She was started on insulin drip. 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 10/29 Awaiting callback from insurance [email or web address] for peer to peer. Continue current dose of Lantus with sliding scale. Continue amlodipine and other medications as above. 10/28 Awaiting placement. Insurance declined inpatient rehab placement. I have left voicemail for peer to peer. Will await for the phone call from the insurance company. Continue current dose of Lantus with lisinopril, amlodipine and sliding scale. Will recheck labs in a.m. 10/27 Continue current dose of Lantus with sliding scale. Continue lisinopril, hydrochlorothiazide with amlodipine. Continue other medications as above. Await inpatient rehab placement. Patient is stable for discharge. 10/26 Blood pressure uncontrolled. Will resume home ANSHUL inhibitor with diuretic. Restart amlodipine. Intermittent pain probably contributing to elevated blood pressure. Continue Lantus at 30 units daily with sliding scale continue Lovenox for DVT prophylaxis. We will continue gabapentin and Prozac. Patient is re fusing any new medication for anxiety. Recheck CBC in a.m. Await inpatient rehab placement. 10/25 Diarrhea has resolved. Antibiotic discontinued. Increase Lantus to 30 units daily. Continue gabapentin and other medications as above. Patient is stable for discharge awaiting inpatient rehab placement. Continue sliding scale. DVT prophylaxis.. Recheck CBC in a.m. 10/24 Off check stool for C. difficile. Continue IV vancomycin with Zosyn. Monitor vancomycin level. Continue current dose of Lantus with sliding scale. Gabapentin started. Continue other medications as above. Physical therapy consultation. Patient will require inpatient rehab evaluation. 10/23 Change insulin to 10 units Lantus twice daily. Continue IV vancomycin with Zosyn. 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 Will discontinue subcu heparin after tonight's dose. Continue Pepcid, gabapentin and other medications as above. Recheck labs in a.m. Counseled on diabetes mellitus type 2. 10/22 Continue postoperative care. Pain control. Continue vancomycin with Zosyn. Monitor vancomycin level. Continue IV fluids. DVT prophylaxis with heparin. Recheck labs in a.m. Continue wound care. Counseled on diabetic diet. Replace phosphorus. Check A1c. Add Lantus 10 units daily.
[2019-10-30] MEDS: Amlodipine 10 MG TAB PO SCH (21:27)
[2019-10-30] MEDS: Enoxaparin Sodium 40 MG/0.4 ML SYRINGE SC SCH (21:28)
[2019-10-31] MEDS: K-Phos Neutral 250 MG TAB PO SCH (08:41)
[2019-10-31] MEDS: Ferrous Sulfate 325 MG TAB PO SCH ×2 (08:42→16:44)
[2019-10-31] MEDS: Hydrochlorothiazide 25 MG TAB PO SCH (08:44)
[2019-10-31] MEDS: Gabapentin 300 MG CAP PO SCH ×3 (08:45→21:01)
[2019-10-31] MEDS: Famotidine 20 MG TAB PO SCH (08:45)
[2019-10-31] MEDS: Lisinopril 10 MG TAB PO SCH (08:45)
[2019-10-31] MEDS: Saccharomyces boulardii 250 MG CAP PO SCH (08:45)
[2019-10-31] MEDS: Multivit, Therapeutic 1 TAB PO SCH (08:45)
[2019-10-31] MEDS: FLUoxetine HCl 20 MG CAP PO SCH (08:45)
--- NOTE | 2019-10-31 10:04 | PDOC.HOSPP ---
- Subjective Encounter Date: 10/31/19 Encounter Time: 09:45 Subjective: Patient seen and examined for foot infection requiring amputation. Pain controlled. Denies any nausea, fever or chills - Objective Vital Signs & Weight: Vital Signs (12 hours) Temp Pulse Resp BP BP BP Pulse Ox 10/31/19 08:45 137/78 10/31/19 07:18 98.8 F 87 16 138/77 93 L 10/31/19 04:00 98.4 F 97 18 165/82 H 96 10/31/19 00:00 98.5 F 90 16 125/71 95 Weight Weight 162 lb 0.636 oz Most Recent Monitor Data Heart Rate from ECG 81 NIBP 135/78 NIBP BP-Mean 97 Respiration from ECG 20 SpO2 98 I&O: 10/30/19 10/31/19 11/01/19 06:59 06:59 06:59 Intake Total 1050 1550 Balance 1050 1550 Result Diagrams: 10/30/19 05:50 10/30/19 05:50 Additional Labs: Accuchecks 10/31/19 10/30/19 10/30/19 05:43 21:07 16:44 POC Glucose 116 H 268 H 183 H 10/30/19 12:10 POC Glucose 294 H Hospitalist ROS - Review of Systems Respiratory: denies: cough, dry, shortness of breath, hemoptysis, SOB with excertion, pleuritic pain, sputum, wheezing, other Cardiovascular: denies: chest pain, palpitations, orthopnea, paroxysmal noc. dyspnea, edema, light headedness, other - Medication Medications: Active Medications Generic Name Dose Route Start Last Admin Trade Name Freq PRN Reason Stop Dose Admin Amlodipine Besylate 10 mg 10/27/19 21:00 10/30/19 21:27 Amlodipine 10 Mg Tab PO 10 mg HS HUMBLE Administration Clonidine 0.1 mg 10/21/19 06:29 10/27/19 13:00 Catapres PO 0.1 mg BID PRN Administration SBP > 160 use second Enoxaparin Sodium 40 mg 10/25/19 21:00 10/30/19 21:28 Lovenox SC 40 mg 2100 HUMBLE Administration Famotidine 20 mg 10/21/19 09:00 10/31/19 08:45 Pepcid PO 20 mg 0900 HUMBLE Administration Ferrous Sulfate 325 mg 10/27/19 17:00 10/31/19 08:42 Ferrous Sulfate 325 Mg Tab PO 325 mg BID-WM HUMBLE Administration Fluoxetine HCl 20 mg 10/24/19 09:00 10/31/19 08:45 Prozac PO 20 mg DAILY HUMBLE Administration Gabapentin 300 mg 10/22/19 15:00 10/31/19 08:45 Neurontin PO 300 mg TID HUMLBE Administration Hydralazine HCl 10 mg 10/21/19 06:29 10/27/19 18:16 Apresoline SLOW IVP 10 mg Q6H PRN Administration SBP GREATER THAN 160 Hydrochlorothiazide 25 mg 10/28/19 09:00 10/31/19 08:44 Hydrochlorothiazide 25 Mg Tab PO 25 mg DAILY HUMBLE Administration Insulin Glargine 30 units/ 0.3 mls @ 0 mls/hr 10/27/19 09:00 10/30/19 09:02 Miscellaneous Medication SC 0.3 mls QAM HUMBLE Administration Ibuprofen 600 mg 10/25/19 18:28 10/29/19 20:11 Motrin PO 600 mg Q6H PRN Administration Pain Insulin Human Regular 0 units 10/21/19 11:35 10/30/19 21:27 Humulin R SC 9 unit .AGGRESSIVE SLIDING PRN Administration AGGRESSIVE SLIDING SCALE Protocol Lisinopril 10 mg 10/28/19 09:00 10/31/19 08:45 Lisinopril 10 Mg Tab PO 10 mg DAILY HUMBLE Administration Multivitamins 1 tab 10/28/19 09:00 10/31/19 08:45 Multivit, Therapeutic 1 Tab PO 1 tab DAILY HUMBLE Administration Neomycin/Polymyxin/Bacitracin 1 gm 10/27/19 12:39 10/27/19 13:01 Triple Antibiotic Oint 1 Gm Packet TOP 1 gm PRN PRN Administration DRESSING CHANGE Ondansetron HCl 4 mg 10/21/19 06:29 10/21/19 12:59 Zofran IVP 4 mg Q6H PRN Administration Nausea/Vomiting use 1st Polyethylene Glycol 17 gm 10/27/19 12:53 10/28/19 09:28 Polyethylene Glycol 3350 17 Gm Packet PO 17 gm DAILYPRN PRN Administration Constipation Saccharomyces Boulardii 250 mg 10/24/19 09:00 10/31/19 08:45 Florastor PO 250 mg DAILY HUMBLE Administration Sodium Chloride 10 ml 10/22/19 21:00 10/31/19 08:46 Flush - Normal Saline IVF 10 ml Q12HR HUMBLE Administration Tramadol HCl 50 mg 10/22/19 12:46 10/28/19 09:28 Ultram PO 50 mg Q4H PRN Administration Moderate Pain (4-6) - Exam General Appearance: NAD Neck: supple, no JVD Heart: no gallops, no rubs Respiratory: no wheezes, no rales Gastrointestinal: non-tender, non-distended Hosp A/P (1) Sepsis with acute organ dysfunction Code(s): A41.9 - SEPSIS, UNSPECIFIED ORGANISM; R65.20 - SEVERE SEPSIS WITHOUT SEPTIC SHOCK Status: Acute (2) Gangrene of left foot Code(s): I96 - GANGRENE, NOT ELSEWHERE CLASSIFIED Status: Acute (3) DKA (diabetic ketoacidosis) Code(s): E11.10 - TYPE 2 DIABETES MELLITUS WITH KETOACIDOSIS WITHOUT COMA Qualifiers: Diabetes mellitus type: type 2 (4) Acute kidney injury superimposed on CKD Code(s): N17.9 - ACUTE KIDNEY FAILURE, UNSPECIFIED; N18.9 - CHRONIC KIDNEY DISEASE, UNSPECIFIED Status: Acute (5) Osteomyelitis of left foot Code(s): M86.9 - OSTEOMYELITIS, UNSPECIFIED Status: Acute (6) Hypophosphatemia Code(s): E83.39 - OTHER DISORDERS OF PHOSPHORUS METABOLISM Status: Acute (7) Chronic anemia Code(s): D64.9 - ANEMIA, UNSPECIFIED Status: Chronic (8) Depressive disorder in remission Code(s): F32.9 - MAJOR DEPRESSIVE DISORDER, SINGLE EPISODE, UNSPECIFIED Status: Chronic (9) Diabetes mellitus, type 2 Status: Chronic Qualifiers: Chronic kidney disease stage: stage 2 (mild) (10) HTN (hypertension) Code(s): I10 - ESSENTIAL (PRIMARY) HYPERTENSION Status: Chronic - Plan Summary:64-year-old female with diabetes mellitus type 2 and hypertension presented to the emergency room with generalized weakness and fall. His work-up was consistent with sepsis due to diabetic left foot infection/gangrene with diabetic ketoacidosis. She was started on insulin drip. 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 10/30 Patient stable for discharge to inpatient rehab. Awaiting call from [facility] for [id number]. Continue amlodipine, lisinopril, Lantus with sliding scale and other medications as above. Continue physical therapy. 10/29 Awaiting callback from insurance company for peer to peer. Continue current dose of Lantus with sliding scale. Continue amlodipine and other medications as above. 10/28 Awaiting placement. Insurance declined inpatient rehab placement. I have left voicemail for peer to peer. Will await for the phone call from the insurance company. Continue current dose of Lantus with lisinopril, amlodipine and sliding scale. Will recheck labs in a.m. 10/27 Continue current dose of Lantus with sliding scale. Continue lisinopril, hydrochlorothiazide with amlodipine. Continue other medications as above. Await inpatient rehab placement. Patient is stable for discharge. 10/26 Blood pressure uncontrolled. Will resume home ANSHUL inhibitor with diuretic. Restart amlodipine. Intermittent pain probably contributing to elevated blood pressure. Continue Lantus at 30 units daily with sliding scale continue Lovenox for DVT prophylaxis. We will continue gabapentin and Prozac. Patient is re fusing any new medication for anxiety. Recheck CBC in a.m. Await inpatient rehab placement. 10/25 Diarrhea has resolved. Antibiotic discontinued. Increase Lantus to 30 units daily. Continue gabapentin and other medications as above. Patient is stable for discharge awaiting inpatient rehab placement. Continue sliding scale. DVT prophylaxis.. Recheck CBC in a.m. 10/24 Off check stool for C. difficile. Continue IV vancomycin with Zosyn. Monitor vancomycin level. Continue current dose of Lantus with sliding scale. Gabapentin started. Continue other medications as above. Physical therapy consultation. Patient will require inpatient rehab evaluation. 10/23 Change insulin to 10 units Lantus twice daily. Continue IV vancomycin with Zosyn. 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 Will discontinue subcu heparin after tonight's dose. Continue Pepcid, gabapentin and other medications as above. Recheck labs in a.m. Counseled on diabetes mellitus type 2. 10/22 Continue postoperative care. Pain control. Continue vancomycin with Zosyn. Monitor vancomycin level. Continue IV fluids. DVT prophylaxis with heparin. Recheck labs in a.m. Continue wound care. Counseled on diabetic diet. Replace phosphorus. Check A1c. Add Lantus 10 units daily.
[2019-10-31] MEDS: Insulin Glargine 30 UNITS in Pre-Filled Syringe 1 EACH SC SCH (10:07)
[2019-10-31] MEDS: Insulin Regular 300 UNITS/3 ML VIAL SC PRN ×2 (13:40→16:32)
[2019-10-31] MEDS: traMADol HCl 50 MG TAB PO PRN (13:50)
[2019-10-31] MEDS: Amlodipine 10 MG TAB PO SCH (20:59)
[2019-10-31] MEDS: Enoxaparin Sodium 40 MG/0.4 ML SYRINGE SC SCH (21:01)
[2019-11-01] MEDS: Ferrous Sulfate 325 MG TAB PO SCH ×2 (09:00→16:54)
[2019-11-01] MEDS: FLUoxetine HCl 20 MG CAP PO SCH (09:00)
[2019-11-01] MEDS: Lisinopril 10 MG TAB PO SCH (09:01)
[2019-11-01] MEDS: Hydrochlorothiazide 25 MG TAB PO SCH (09:01)
[2019-11-01] MEDS: Gabapentin 300 MG CAP PO SCH ×3 (09:01→21:17)
[2019-11-01] MEDS: Saccharomyces boulardii 250 MG CAP PO SCH (09:02)
[2019-11-01] MEDS: Multivit, Therapeutic 1 TAB PO SCH (09:02)
[2019-11-01] MEDS ORDERED: Dextrose 50% Abboject 50 ML SYRINGE SLOW IVP PRN (11:11)
[2019-11-01] MEDS ORDERED: Dextrose 5% in Water 1,000 ML IV PRN (11:11)
--- NOTE | 2019-11-01 11:14 | PDOC.HOSPP ---
- Subjective Encounter Date: 11/01/19 Encounter Time: 11:12 Subjective: no complaints - Objective Vital Signs & Weight: Vital Signs (12 hours) Temp Pulse Resp BP BP Pulse Ox 11/01/19 08:00 97.7 F 88 16 138/70 98 11/01/19 03:18 98.0 F 76 16 136/76 98 10/31/19 23:57 97.7 F 75 16 123/70 99 Weight Admit Weight 162 lb 0.624 oz Weight 162 lb 0.624 oz Most Recent Monitor Data Heart Rate from ECG 81 NIBP 135/78 NIBP BP-Mean 97 Respiration from ECG 20 SpO2 98 I&O: 10/31/19 11/01/19 11/02/19 06:59 06:59 06:59 Intake Total 1550 1460 Balance 1550 1460 Result Diagrams: 10/30/19 05:50 10/30/19 05:50 Additional Labs: Accuchecks 11/01/19 10/31/19 10/31/19 05:24 22:01 15:29 POC Glucose 187 H 115 H 228 H 10/31/19 11:14 POC Glucose 290 H Hospitalist ROS - Medication Medications: Active Medications Generic Name Dose Route Start Last Admin Trade Name Freq PRN Reason Stop Dose Admin Acetaminophen 1,000 mg 10/22/19 12:46 10/31/19 13:52 Tylenol PO 1,000 mg Q6H PRN Administration Moderate to Severe Pain (6-10) Amlodipine Besylate 10 mg 10/27/19 21:00 10/31/19 20:59 Amlodipine 10 Mg Tab PO 10 mg HS HUMBLE Administration Clonidine 0.1 mg 10/21/19 06:29 10/27/19 13:00 Catapres PO 0.1 mg BID PRN Administration SBP > 160 use second Enoxaparin Sodium 40 mg 10/25/19 21:00 10/31/19 21:01 Lovenox SC 40 mg 2100 HUMBLE Administration Famotidine 20 mg 10/21/19 09:00 10/31/19 08:45 Pepcid PO 20 mg 0900 HUMBLE Administration Ferrous Sulfate 325 mg 10/27/19 17:00 11/01/19 09:00 Ferrous Sulfate 325 Mg Tab PO 325 mg BID-WM HUMBLE Administration Fluoxetine HCl 20 mg 10/24/19 09:00 11/01/19 09:00 Prozac PO 20 mg DAILY HUMBLE Administration Gabapentin 300 mg 10/22/19 15:00 11/01/19 09:01 Neurontin PO 300 mg TID HUMBLE Administration Hydralazine HCl 10 mg 10/21/19 06:29 10/27/19 18:16 Apresoline SLOW IVP 10 mg Q6H PRN Administration SBP GREATER THAN 160 Hydrochlorothiazide 25 mg 10/28/19 09:00 11/01/19 09:01 Hydrochlorothiazide 25 Mg Tab PO 25 mg DAILY HUMBLE Administration Insulin Glargine 30 units/ 0.3 mls @ 0 mls/hr 10/27/19 09:00 10/31/19 10:07 Miscellaneous Medication SC 0.3 mls QAM HUMBLE Administration Ibuprofen 600 mg 10/25/19 18:28 10/29/19 20:11 Motrin PO 600 mg Q6H PRN Administration Pain Lisinopril 10 mg 10/28/19 09:00 11/01/19 09:01 Lisinopril 10 Mg Tab PO 10 mg DAILY HUMBLE Administration Multivitamins 1 tab 10/28/19 09:00 11/01/19 09:02 Multivit, Therapeutic 1 Tab PO 1 tab DAILY HUMBLE Administration Neomycin/Polymyxin/Bacitracin 1 gm 10/27/19 12:39 10/27/19 13:01 Triple Antibiotic Oint 1 Gm Packet TOP 1 gm PRN PRN Administration DRESSING CHANGE Ondansetron HCl 4 mg 10/21/19 06:29 10/21/19 12:59 Zofran IVP 4 mg Q6H PRN Administration Nausea/Vomiting use 1st Polyethylene Glycol 17 gm 10/27/19 12:53 10/28/19 09:28 Polyethylene Glycol 3350 17 Gm Packet PO 17 gm DAILYPRN PRN Administration Constipation Saccharomyces Boulardii 250 mg 10/24/19 09:00 11/01/19 09:02 Florastor PO 250 mg DAILY HUMBLE Administration Sodium Chloride 10 ml 10/22/19 21:00 11/01/19 09:06 Flush - Normal Saline IVF 10 ml Q12HR HUMBLE Administration Tramadol HCl 50 mg 10/22/19 12:46 10/31/19 13:50 Ultram PO 50 mg Q4H PRN Administration Moderate Pain (4-6) - Exam General Appearance: awake alert Neck: no JVD Heart: RRR, no murmur Respiratory: CTAB Gastrointestinal: soft, normal bowel sounds Extremities: no edema Extremities - other findings: left BKA Hosp A/P (1) Status post below-knee amputation of left lower extremity Code(s): Z89.512 - ACQUIRED ABSENCE OF LEFT LEG BELOW KNEE Status: Acute (2) DKA (diabetic ketoacidosis) Code(s): E11.10 - TYPE 2 DIABETES MELLITUS WITH KETOACIDOSIS WITHOUT COMA Status: Acute Qualifiers: Diabetes mellitus type: type 2 Diabetes mellitus complication detail: with out coma Qualified Code(s): E11.10 - Type 2 diabetes mellitus with ketoac idosis without coma (3) Gangrene of left foot Code(s): I96 - GANGRENE, NOT ELSEWHERE CLASSIFIED Status: Acute (4) Chronic anemia Code(s): D64.9 - ANEMIA, UNSPECIFIED Status: Chronic (5) Diabetes mellitus, type 2 Status: Chronic Qualifiers: Diabetes mellitus termite inspector insulin use: with termite inspector use Diabetes mellitus complication status: with kidney complications Diabetes mellitus complication detail: with chronic kidney disease Chronic kidney disease stage: stage 3 (moderate) Qualified Code(s): E11.22 - Type 2 diabetes mellitus with diabetic chronic kidney disease; N18.3 - Chronic kidney disease, stage 3 (moderate); Z79.4 - [facility] (current) use of insulin (6) HTN (hypertension) Code(s): I10 - ESSENTIAL (PRIMARY) HYPERTENSION Status: Chronic Qualifiers: Hypertension type: essential hypertension Qualified Code(s): I10 - Essential (primary) hypertension - Plan reduce sliding scale from agressive to mild, BS running low cont antihypertensives PT placement pending
[2019-11-01] MEDS: Insulin Glargine 30 UNITS in Pre-Filled Syringe 1 EACH SC SCH (11:31)
[2019-11-01] MEDS: HumaLOG 300 UNITS/3 ML VIAL SC PRN ×2 (13:42→21:19)
[2019-11-01] MEDS: Famotidine 20 MG TAB PO SCH (16:52)
[2019-11-01] MEDS: Amlodipine 10 MG TAB PO SCH (21:17)
[2019-11-01] MEDS: Enoxaparin Sodium 40 MG/0.4 ML SYRINGE SC SCH (21:17)
[2019-11-02] MEDS: HumaLOG 300 UNITS/3 ML VIAL SC PRN ×4 (05:45→22:11)
[2019-11-02] MEDS: Lisinopril 10 MG TAB PO SCH (10:03)
[2019-11-02] MEDS: Gabapentin 300 MG CAP PO SCH ×3 (10:03→22:00)
[2019-11-02] MEDS: Saccharomyces boulardii 250 MG CAP PO SCH (10:03)
[2019-11-02] MEDS: Ferrous Sulfate 325 MG TAB PO SCH ×2 (10:03→16:35)
[2019-11-02] MEDS: Hydrochlorothiazide 25 MG TAB PO SCH (10:04)
[2019-11-02] MEDS: Famotidine 20 MG TAB PO SCH (10:04)
[2019-11-02] MEDS: Multivit, Therapeutic 1 TAB PO SCH (10:04)
[2019-11-02] MEDS: FLUoxetine HCl 20 MG CAP PO SCH (10:04)
[2019-11-02] MEDS: Insulin Glargine 30 UNITS in Pre-Filled Syringe 1 EACH SC SCH (10:13)
--- NOTE | 2019-11-02 11:32 | PDOC.HOSPP ---
- Subjective Encounter Date: 11/02/19 Encounter Time: 11:28 Subjective: no problems pain, etc - Objective Vital Signs & Weight: Vital Signs (12 hours) Temp Pulse Resp BP Pulse Ox 11/02/19 07:57 98.1 F 76 18 108/59 L 92 L 11/02/19 03:48 98.1 F 71 16 128/72 95 11/01/19 23:57 97.9 F 77 16 121/69 95 Weight Admit Weight 162 lb 0.624 oz Weight 162 lb 0.624 oz Most Recent Monitor Data Heart Rate from ECG 81 NIBP 135/78 NIBP BP-Mean 97 Respiration from ECG 20 SpO2 98 I&O: 11/01/19 11/02/19 11/03/19 06:59 06:59 06:59 Intake Total 1460 1380 Balance 1460 1380 Result Diagrams: 10/30/19 05:50 10/30/19 05:50 Additional Labs: Accuchecks 11/02/19 11/02/19 11/01/19 11:24 05:39 21:02 POC Glucose 218 H 178 H 234 H 11/01/19 11/01/19 10/31/19 16:23 11:19 20:49 POC Glucose 142 H 348 H 46 L* Hospitalist ROS - Medication Medications: Active Medications Generic Name Dose Route Start Last Admin Trade Name Freq PRN Reason Stop Dose Admin Acetaminophen 1,000 mg 10/22/19 12:46 10/31/19 13:52 Tylenol PO 1,000 mg Q6H PRN Administration Moderate to Severe Pain (6-10) Amlodipine Besylate 10 mg 10/27/19 21:00 11/01/19 21:17 Amlodipine 10 Mg Tab PO 10 mg HS HUMBLE Administration Clonidine 0.1 mg 10/21/19 06:29 10/27/19 13:00 Catapres PO 0.1 mg BID PRN Administration SBP > 160 use second Enoxaparin Sodium 40 mg 10/25/19 21:00 11/01/19 21:17 Lovenox SC 40 mg 2100 HUMBLE Administration Famotidine 20 mg 10/21/19 09:00 11/02/19 10:04 Pepcid PO 20 mg 0900 HUMBLE Administration Ferrous Sulfate 325 mg 10/27/19 17:00 11/02/19 10:03 Ferrous Sulfate 325 Mg Tab PO 325 mg BID-WM HUMBLE Administration Fluoxetine HCl 20 mg 10/24/19 09:00 11/02/19 10:04 Prozac PO 20 mg DAILY HUMBLE Administration Gabapentin 300 mg 10/22/19 15:00 11/02/19 10:03 Neurontin PO 300 mg TID HUMBLE Administration Hydralazine HCl 10 mg 10/21/19 06:29 10/27/19 18:16 Apresoline SLOW IVP 10 mg Q6H PRN Administration SBP GREATER THAN 160 Hydrochlorothiazide 25 mg 10/28/19 09:00 11/02/19 10:04 Hydrochlorothiazide 25 Mg Tab PO 25 mg DAILY HUMBLE Administration Insulin Glargine 30 units/ 0.3 mls @ 0 mls/hr 10/27/19 09:00 11/02/19 10:13 Miscellaneous Medication SC 0.3 mls QAM HUMBLE Administration Ibuprofen 600 mg 10/25/19 18:28 10/29/19 20:11 Motrin PO 600 mg Q6H PRN Administration Pain Insulin Human Lispro 0 units 11/01/19 11:11 11/02/19 05:45 Humalog 300 Units/3 Ml Vial SC 2 units .MILD SLIDING SCALE PRN Administration Mild Correctional Scale Lisinopril 10 mg 10/28/19 09:00 11/02/19 10:03 Lisinopril 10 Mg Tab PO 10 mg DAILY HUMBLE Administration Multivitamins 1 tab 10/28/19 09:00 11/02/19 10:04 Multivit, Therapeutic 1 Tab PO 1 tab DAILY HUMBLE Administration Neomycin/Polymyxin/Bacitracin 1 gm 10/27/19 12:39 10/27/19 13:01 Triple Antibiotic Oint 1 Gm Packet TOP 1 gm PRN PRN Administration DRESSING CHANGE Ondansetron HCl 4 mg 10/21/19 06:29 10/21/19 12:59 Zofran IVP 4 mg Q6H PRN Administration Nausea/Vomiting use 1st Polyethylene Glycol 17 gm 10/27/19 12:53 10/28/19 09:28 Polyethylene Glycol 3350 17 Gm Packet PO 17 gm DAILYPRN PRN Administration Constipation Saccharomyces Boulardii 250 mg 10/24/19 09:00 11/02/19 10:03 Florastor PO 250 mg DAILY HUMBLE Administration Sodium Chloride 10 ml 10/22/19 21:00 11/02/19 10:17 Flush - Normal Saline IVF 10 ml Q12HR HUMBLE Administration - Exam General Appearance: awake alert Neck: no JVD Heart: RRR, no murmur Respiratory: CTAB Gastrointestinal: soft, normal bowel sounds Extremities: no edema Hosp A/P (1) Status post below-knee amputation of left lower extremity Code(s): Z89.512 - ACQUIRED ABSENCE OF LEFT LEG BELOW KNEE Status: Acute (2) DKA (diabetic ketoacidosis) Code(s): E11.10 - TYPE 2 DIABETES MELLITUS WITH KETOACIDOSIS WITHOUT COMA Status: Acute Qualifiers: Diabetes mellitus type: type 2 Diabetes mellitus complication detail: without coma Qualified Code(s): E11.10 - Type 2 diabetes mellitus with ketoacidosis without coma (3) Gangrene of left foot Code(s): I96 - GANGRENE, NOT ELSEWHERE CLASSIFIED Status: Acute (4) Chronic anemia Code(s): D64.9 - ANEMIA, UNSPECIFIED Status: Chronic (5) Diabetes mellitus, type 2 Status: Chronic Qualifiers: Diabetes mellitus mcc insulin use: with mcc use Diabetes mellitus complication status: with kidney complications Diabetes mellitus complication detail: with chronic kidney disease Chronic kidney disease stage: stage 3 (moderate) Qualified Code(s): E11.22 - Type 2 diabetes mellitus with diabetic chronic kidney disease; N18.3 - Chronic kidney disease, stage 3 (moderate); Z79.4 - correction (current) use of insulin (6) HTN (hypertension) Code(s): I10 - ESSENTIAL (PRIMARY) HYPERTENSION Status: Chronic Qualifiers: Hypertension type: essential hypertension Qualified Code(s): I10 - Essential (primary) hypertension - Plan BS control improved with decrease to mild SS cont wound care of L BKA cont antihypertensives PT placement pending
[2019-11-02 11:54] LABS: #Eosinphils 0.1 thou/uL (0.0-0.7); #Lymphocytes 1.6 thou/uL (1.20-3.40); #Monocytes 0.6 thou/uL (0.11-0.59); #Neutrophils 4.1 thou/uL (1.40-6.50); %Basophils 0.3 % (0.0-1.0); %Eosinophils 1.6 % (0.0-10.0); %Lymphocytes 25.1 % (21.0-51.0); %Monocytes 9.2 % (0.0-10.0); %Neutrophils 63.8 % (42.0-75.0); Hemoglobin 8.9 g/dL (12.0-16.0); Mean Corpuscular HGB CONC 31.2 g/dL (32.0-36.0); Mean Corpuscular Hemoglobin 28.8 pg (27.0-31.0); Mean Corpuscular Volume 92.3 fL (78.0-98.0); Mean Platelet Volume 7.8 fL (7.4-10.4); Platelet Count 383 thou/uL (130-400); RBC Distribution Width 15.7 % (11.5-14.5); Red Blood Cell (RBC) Count 3.08 mill/uL (4.20-5.40); White Blood Cell (WBC) Count 6.4 thou/uL (4.8-10.8)
[2019-11-02 12:17] LABS: Anion Gap 13 mmol/L (10-20); BUN (Urea Nitrogen) 31 mg/dL (9.8-20.1); Calc. Creatinine Clearance 44 mL/min (70-130); Calcium 8.3 mg/dL (7.8-10.44); Carbon Dioxide 26 mmol/L (23-31); Chloride 101 mmol/L (98-107); Estimated GFR-MDRD 36; Glucose 225 mg/dL (80-115); Potassium 4.9 mmol/L (3.5-5.1); Sodium 135 mmol/L (136-145)
[2019-11-02] MEDS: Enoxaparin Sodium 40 MG/0.4 ML SYRINGE SC SCH (22:00)
[2019-11-02] MEDS: Amlodipine 10 MG TAB PO SCH (22:00)
[2019-11-03 03:16] VITALS: TEMP 98.2
[2019-11-03] MEDS: HumaLOG 300 UNITS/3 ML VIAL SC PRN ×2 (05:41→11:33)
[2019-11-03] MEDS: Ferrous Sulfate 325 MG TAB PO SCH ×2 (09:56→16:10)
[2019-11-03] MEDS: Multivit, Therapeutic 1 TAB PO SCH (09:57)
[2019-11-03] MEDS: Insulin Glargine 30 UNITS in Pre-Filled Syringe 1 EACH SC SCH (09:57)
[2019-11-03] MEDS: Lisinopril 10 MG TAB PO SCH (09:57)
[2019-11-03] MEDS: Gabapentin 300 MG CAP PO SCH ×2 (09:57→16:10)
[2019-11-03] MEDS: FLUoxetine HCl 20 MG CAP PO SCH (09:57)
[2019-11-03] MEDS: Hydrochlorothiazide 25 MG TAB PO SCH (09:57)
[2019-11-03] MEDS: Famotidine 20 MG TAB PO SCH (09:57)
[2019-11-03] MEDS: Saccharomyces boulardii 250 MG CAP PO SCH (09:58)
--- NOTE | 2019-11-03 15:39 | DIS ---
DATE OF ADMISSION: 10/21/2019 DATE OF DISCHARGE: 11/03/2019 PRIMARY CARE PROVIDER: Irina Hendrix MD. DISPOSITION: Discharged to Nursing Home at [facility]. 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 DISCHARGE MEDICATIONS: 1. Amlodipine 10 mg a day. 2. Gabapentin 300 mg three times a day. 3. Motrin 600 mg p.o. q.6 hours p.r.n. 4. Insulin glargine 30 units subcu q.a.m. 5. DuoNeb 3 mL neb use 4 hours p.r.n. 6. Lisinopril 10 mg a day. 7. MiraLAX 17 g in water daily p.r.n. 8. Florastor 250 mg a day. 9. Catapres 0.1 mg p.o. b.i.d. p.r.n. 10. Metformin 1000 mg p.o. b.i.d. 11. Enalapril/hydrochlorothiazide 10/25 one a day. ALLERGIES: CODEINE. CODE STATUS: Full. DIET: Diabetic. PENDING AT TIME OF DISCHARGE: Nothing. CONSULTATIONS: Pablo Ortiz MD, General Surgery. PROCEDURES: On 10/25/2019, left [id number] amputation by Dr. Ji Mclaughlin. HOSPITAL COURSE: The patient was admitted to the emergency room with a notice of severe change in left foot wound for about a week, who has gangrene with drainage, severe necrosis of the toes. Dr. Ortiz evaluated the patient. The patient was actually admitted post emergent surgery for diabetic ketoacidosis. Initial laboratory; white count 24.4, hemoglobin 10.8, platelet count 621,000. Chemistries; sodium 136, potassium 4.6, creatinine 2.12, BUN 36, blood sugar 796, lactic acid 3.6, CRP 35.5. Blood cultures grew Proteus Providencia and Strep species. The patient was placed on IV antibiotics, vancomycin, also started on aggressive insulin treatment. On 10/23, she was doing well with no complaints formal below-knee amputation was planned. Postoperatively, she did well. The pathology specimen revealed ischemic ulceration, calcific atherosclerosis. The patient continued to improve during her hospital stay. Her stay was delayed by 4- to 5-day delay of approval of group home by her insurance company. Rehab was denied. She is currently being transferred to the [facility] under Dr. Hendrix. At the time of discharge, vital signs are stable. She is on room air. Cardiorespiratory exam was unremarkable. Her current laboratory reveals on 11/01; sodium 135, potassium 4.9, BUN 31, creatinine 1.47. Blood sugars in the 200 range. Her white count 6.4, hemoglobin 8.9, and platelet count 383,000. She will need a CBC and a basic metabolic profile about once a week while at rehab. While in group home, undergoing PT, OT, wound care. She will eventually need a prosthesis. She will need appropriate care of the wound in preparation for the prosthesis. Job ID: [id number] MTDD
[2019-11-03 15:55] VITALS: BP 135/70
== END 2019-11-03 17:40 | DRG 853 ==
LOC: ERS 02:17 → CCU 08:29 → SJJU 10-22 11:51
PROVIDERS: ADMIT Internal Medicine; ATTEND Surgery
PROC: 0Y6N0Z0 Detachment at Left Foot, Complete, Open Approach (ICD-10-PCS; principal; 2019-10-21)
PROC: 0Y6J0Z1 Detachment at Left Lower Leg, High, Open Approach (ICD-10-PCS; 2019-10-25)
DX: A40.0 Sepsis due to streptococcus, group A (principal); E11.10 Type 2 diabetes mellitus with ketoacidosis without coma; A48.0 Gas gangrene; E11.52 Type 2 diabetes mellitus with diabetic peripheral angiopathy with gangrene; M86.8X7 Other osteomyelitis, ankle and foot; N17.9 Acute kidney failure, unspecified; I70.262 Atherosclerosis of native arteries of extremities with gangrene, left leg; R65.20 Severe sepsis without septic shock; Z20.828 Contact with and (suspected) exposure to other viral communicable diseases; E11.69 Type 2 diabetes mellitus with other specified complication; E11.22 Type 2 diabetes mellitus with diabetic chronic kidney disease; N18.3 Chronic kidney disease, stage 3 (moderate); D63.1 Anemia in chronic kidney disease; I12.9 Hypertensive chronic kidney disease with stage 1 through stage 4 chronic kidney disease, or unspecified chronic kidney disease; L97.529 Non-pressure chronic ulcer of other part of left foot with unspecified severity; F41.9 Anxiety disorder, unspecified; F32.5 Major depressive disorder, single episode, in full remission; E83.39 Other disorders of phosphorus metabolism; R19.7 Diarrhea, unspecified; Z53.29 Procedure and treatment not carried out because of patient's decision for other reasons; Z88.5 Allergy status to narcotic agent; Z90.49 Acquired absence of other specified parts of digestive tract; Z89.431 Acquired absence of right foot; Z79.899 Other long term (current) drug therapy; Z79.84 Long term (current) use of oral hypoglycemic drugs
CPT/HCPCS: 36415; 36416; 36600; 51701; 80048; 80053; 80202; 81003; 81015; 82010; 83036; 83605; 83735; 84100; 84484; 85025; 85652; 86140; 86850; 86900; 86901; 87040; 87070; 87077; 87186; 87205; 87635; 88305; 88307; 88311; 93005; 96365; 96367; 96375; 96376; J0360; J0692; J1644; J1650; J1815; J2250; J2270; J2405; J2543; J2704; J3010; J3370; J3475; J3490; J7050; L8440; U0003

== ENCOUNTER 2019-12-02 12:00 | Observation (INO) | payer MEDICARE, OTHER ==
[2019-12-02 13:59] LABS: Bacteria/HPF 3+ HPF (None Seen); Bilirubin Negative (Negative); Blood, Urine Negative (Negative); Clarity Clear (Clear); Glucose, Urine (Dipstick) Normal (Negative); Ketone, Urine Negative (Negative); Leukocyte 75 Leu/uL (Negative); Nitrite 2+ (Negative); Protein, Urine (Dipstick) 30 mg/dL (Neg-Trace); RBC/HPF 0-3 HPF (0-3); Specific Gravity, Urine 1.008 (1.002-1.036); Squamous Epithelial 0-3 HPF (0-3); Urobilinogen Normal mg/dL (Less than 2)
[2019-12-02] MEDS ORDERED: cefTRIAXone\\ROCEPHIN 1 GM VIAL ONE (14:08)
[2019-12-02] MEDS ORDERED: cefTRIAXone\\ROCEPHIN 1 GM in Sodium Chloride 0.9% 100 ML IVPB SCH (14:10)
[2019-12-02] MEDS ORDERED: Dextrose 50% Abboject 50 ML SYRINGE ONE (15:48)
[2019-12-02 16:11] LABS: #Eosinphils 0.1 thou/uL (0.0-0.7); #Lymphocytes 2.5 thou/uL (1.20-3.40); #Monocytes 0.7 thou/uL (0.11-0.59); %Basophils 0.3 % (0.0-1.0); %Eosinophils 0.7 % (0.0-10.0); %Lymphocytes 24.3 % (21.0-51.0); %Monocytes 6.7 % (0.0-10.0); %Neutrophils 67.9 % (42.0-75.0); Hemoglobin 9.5 g/dL (12.0-16.0); Mean Corpuscular HGB CONC 32.4 g/dL (32.0-36.0); Mean Corpuscular Hemoglobin 29.3 pg (27.0-31.0); Mean Corpuscular Volume 90.6 fL (78.0-98.0); Mean Platelet Volume 7.1 fL (7.4-10.4); Platelet Count 346 thou/uL (130-400); Red Blood Cell (RBC) Count 3.22 mill/uL (4.20-5.40); White Blood Cell (WBC) Count 10.4 thou/uL (4.8-10.8)
[2019-12-02 16:29] LABS: ALT (SGPT) 16 U/L (8-55); AST (SGOT) 18 U/L (5-34); Albumin 3.3 g/dL (3.4-4.8); Alkaline Phosphatase 167 U/L (40-110); Anion Gap 15 mmol/L (10-20); BUN (Urea Nitrogen) 23 mg/dL (9.8-20.1); Bilirubin, Total 0.4 mg/dL (0.2-1.2); Calc. Creatinine Clearance 0 mL/min (70-130); Carbon Dioxide 21 mmol/L (23-31); Chloride 107 mmol/L (98-107); Estimated GFR-MDRD 53; Magnesium 1.8 mg/dL (1.6-2.6); Phosphorus 3.5 mg/dL (2.3-4.7); Potassium 4.1 mmol/L (3.5-5.1); Protein, Total 8.3 g/dL (6.0-8.3); Sodium 139 mmol/L (136-145)
[2019-12-02] MEDS ORDERED: Dextrose 50% Abboject 50 ML SYRINGE SLOW IVP SCH (16:30)
[2019-12-02] MEDS ORDERED: Dextrose 5 %-0.45 % NaCl 1,000 ML IV SCH (16:30)
[2019-12-02] MEDS ORDERED: Acetaminophen 325 MG TAB PO PRN (16:41)
[2019-12-02] MEDS ORDERED: Dextrose 50% Abboject 50 ML SYRINGE SLOW IVP PRN (16:41)
[2019-12-02] MEDS ORDERED: HumaLOG 300 UNITS/3 ML VIAL SC PRN (16:41)
[2019-12-02] MEDS ORDERED: Dextrose 5% in Water 1,000 ML IV PRN (16:41)
[2019-12-02] MEDS ORDERED: Ondansetron PF 4 MG/2 ML Vial IVP PRN (16:41)
[2019-12-02 16:46] LABS: Glucose 44 mg/dL (80-115)
--- NOTE | 2019-12-02 18:56 | HP ---
CHIEF COMPLAINT: Altered mental status. HISTORY OF PRESENT ILLNESS: The patient is a 64-year-old female with past medical history of insulin-dependent diabetes mellitus, who was discharged from our facility last month after a BKA. The patient was sent to a nursing facility and then discharged home on a different insulin regimen. She was brought to the ER today by her family due to altered mental status. The patient reportedly has been taking her insulin in the morning. Upon evaluation in the emergency department, the patient was found to be altered and her sugar levels were persistently low despite D50 and despite feeding the patient. We were asked to admit the patient for further evaluation. PAST MEDICAL HISTORY: As noted above. PAST SURGICAL HISTORY: Includes; 1. Right BKA. 2. Cholecystectomy. 3. Eye surgery. SOCIAL HISTORY: The patient denies alcohol use, illicit drug use, or smoking. FAMILY HISTORY: Noncontributory to this case. ALLERGIES: THE PATIENT IS ALLERGIC TO CODEINE. PHYSICAL EXAMINATION: GENERAL: The patient is alert and oriented. HEENT: Head is normocephalic and atraumatic. Extraocular muscles are intact. NECK: Supple. CHEST: Clear to auscultation bilaterally. CARDIOVASCULAR: Normal S1, S2 with regular rate and rhythm. ABDOMEN: Soft, nontender, nondistended. NEUROLOGICAL: Nonfocal. ASSESSMENT: 1. Hypoglycemia. 2. Insulin-dependent diabetes mellitus. 3. Hypertension. 4. Acute metabolic encephalopathy. PLAN: The patient will be closely monitored in the hospital with blood sugar checks every 4 hours for the next [address] her into diabetic medications including insulin and metformin on hold. Continue diabetic diet and monitor her response within the next 24 hours. Her urinalysis revealed evidence of possible UTI. Ceftriaxone has been initiated. Lovenox for DVT prophylaxis. Job ID: [id number]
[2019-12-02 19:47] VITALS: BMI 31.5
[2019-12-03 06:08] LABS: #Basophils 0.1 thou/uL (0.0-0.2); #Eosinphils 0.2 thou/uL (0.0-0.7); #Lymphocytes 2.7 thou/uL (1.20-3.40); #Monocytes 0.6 thou/uL (0.11-0.59); #Neutrophils 4.6 thou/uL (1.40-6.50); %Basophils 0.9 % (0.0-1.0); %Eosinophils 2.2 % (0.0-10.0); %Lymphocytes 32.8 % (21.0-51.0); %Monocytes 7.8 % (0.0-10.0); %Neutrophils 56.3 % (42.0-75.0); Hemoglobin 9.3 g/dL (12.0-16.0); Mean Corpuscular HGB CONC 32.3 g/dL (32.0-36.0); Mean Corpuscular Hemoglobin 29.4 pg (27.0-31.0); Mean Corpuscular Volume 91.3 fL (78.0-98.0); Mean Platelet Volume 7.2 fL (7.4-10.4); Platelet Count 326 thou/uL (130-400); RBC Distribution Width 15.1 % (11.5-14.5); Red Blood Cell (RBC) Count 3.16 mill/uL (4.20-5.40); White Blood Cell (WBC) Count 8.1 thou/uL (4.8-10.8)
[2019-12-03 06:25] LABS: Anion Gap 15 mmol/L (10-20); BUN (Urea Nitrogen) 21 mg/dL (9.8-20.1); Calc. Creatinine Clearance 56 mL/min (70-130); Calcium 8.9 mg/dL (7.8-10.44); Carbon Dioxide 21 mmol/L (23-31); Chloride 107 mmol/L (98-107); Estimated GFR-MDRD 46; Glucose 212 mg/dL (80-115); Potassium 4.5 mmol/L (3.5-5.1); Sodium 138 mmol/L (136-145)
[2019-12-03] MEDS ORDERED: Enoxaparin Sodium 40 MG/0.4 ML SYRINGE SC SCH (09:00)
[2019-12-03] MEDS ORDERED: cefTRIAXone\\ROCEPHIN 1 GM in Sodium Chloride 0.9% 100 ML IVPB SCH (14:00)
--- NOTE | 2019-12-03 18:20 | PRG ---
DATE OF SERVICE: 12/03/2019 SUBJECTIVE: The patient had a left BKA. She fell, inured her stump. I saw her in the office yesterday and was going to debride her left stump at bedside, but called to an emergency, then the patient went to eat and to return to the office. She developed what she thought were stroke symptoms, evaluated, found to be hypoglycemic, admitted to the hospital. I am seeing her now in the hospital to look at her left BKA stump. [facility] has arranged home VAC for her. Plan is to drain her stump at the bedside and be discharged home. Follow up with [facility] over the weekend and apply the wound VAC and then follow up with me in 2 to 3 weeks. Job ID: [id number]
[2019-12-03 22:11] VITALS: BP 159/73; TEMP 97.8
--- NOTE | 2019-12-05 09:29 | OP ---
DATE OF PROCEDURE: 12/03/2019 PREOPERATIVE DIAGNOSES: Left BKA stump injury status post fall, partial wound dehiscence, desiccated stump. POSTOPERATIVE DIAGNOSES: Left BKA stump injury status post fall, partial wound dehiscence, desiccated stump. PROCEDURE PERFORMED: Bedside debridement of her BKA stump, debridement of skin and subcutaneous tissue sharply, excisional, resectional. ANESTHESIA: None. DESCRIPTION OF PROCEDURE: At the bedside, alcohol prep was used and a 10 blade scalpel was used to excise some eschar at the periphery of the skin, the lateral stump and subcutaneous tissue down to bleeding tissue. The fascia was intact. A gauze dressing applied for hemostasis. The patient is to be discharged home. [facility] to apply wound VAC over the weekend. Follow up with me in 2 weeks. Job ID: [id number]
--- NOTE | 2019-12-06 08:29 | DIS ---
DATE OF ADMISSION: 12/02/2019 DATE OF DISCHARGE: 12/03/2019 DISCHARGE DIAGNOSES: 1. Hypoglycemia. 2. Insulin-dependent diabetes mellitus. 3. Hypertension. 4. Acute metabolic encephalopathy. DISCHARGE MEDICATIONS: The patient will continue her home medications with the following changes: Her glargine has been changed to 40 units in the morning and her short-acting insulin has been discontinued. HISTORY OF PRESENT ILLNESS AND HOSPITAL COURSE: The patient is a 64-year-old female with past medical history of insulin-dependent diabetes mellitus, hypertension, and recent DKA, who was sent to the hospital with altered mental status and was found to be persistently hypoglycemic in the ER. The patient takes several doses of long-acting and short-acting insulin in the day. Insulin was placed on hold and the patient received dextrose on admission. Her sugar levels remained stable overnight and her insulin was restarted at a lower dose in the morning. Her mental status returned to baseline. Changes to her medication regimen were discussed with the patient. Job ID: [id number]
--- NOTE | 2019-12-08 16:18 | PQF ---
[facility] POST DISCHARGE CLINICAL DOCUMENTATION IMPROVEMENT CLARIFICATION FORM Todays Date: 12/08/19 Patients Name ABRAHAM MELISSA Admit Date 12/02/19 Disch Date 12/03/19 Car Ferry Master Name Osmani Houser Email: [email or web address] Cell: [phone] To be completed by Car Ferry Master: Present Clinical Indicators - Signs / Symptoms Results and Location in Medical Record [ ] Documentation of: [ ] [ ] Documentation of: [ ] [ ] Documentation of: [ ] [ ] Documentation of: [ ] [ ] Risks [ ] [ ] [ ] Treatment [ yes] Partial wound dehisence, L BKA stump Query for area (sq cm) of debridement [ ] [ ] To be completed by Physician: KEO PHAN The documentation in this patients record requires clarification to ensure coding compliance and accuracy. Check the appropriate box and include in your discharge summary. [yes ] ___present on admission-dehiscence due to pt fall at home. Debrided skin & Subcu bedside [ ] [ ] [ ] Please check this box if this does not apply to this patient [ ] Unable to determine [ ] Other diagnosis: Review the following information and exercise your independent professional judgment in responding to the clarification. Based upon the clinical findings, risk factors, and treatment, please clarify if you are treating one of the above probable or suspected diagnoses. Physician Signature: Date Time MTDD
== END 2019-12-03 19:30 | disposition home or self-care (01) ==
LOC: ERS 12:00 → T4-B 16:55
PROVIDERS: ADMIT Internal Medicine; ATTEND Internal Medicine
PROC: 0JBM0ZZ Excision of Left Upper Leg Subcutaneous Tissue and Fascia, Open Approach (ICD-10-PCS; principal; 2019-12-03)
DX: T87.81 Dehiscence of amputation stump (principal); E11.649 Type 2 diabetes mellitus with hypoglycemia without coma; I10 Essential (primary) hypertension; G93.41 Metabolic encephalopathy; Z79.4 Long term (current) use of insulin; Z79.899 Other long term (current) drug therapy; Z88.5 Allergy status to narcotic agent; Z89.512 Acquired absence of left leg below knee; W19.XXXA Unspecified fall, initial encounter
CPT/HCPCS: 80048; 80053; 82962 ×2; 83735; 84100; 85025 ×2; 93005; 96365; 96372; 96375; 97139 ×4; 99285; G0378 ×2; 36415; 36416; 81003; 81015; J0696; J1650; J3490

== ENCOUNTER 2019-12-26 03:42 | Emergency (ER) | payer MEDICARE | END 2019-12-26 05:54 | disposition home or self-care (01) | LOC: ERS 03:42 | DX: E11.649 Type 2 diabetes mellitus with hypoglycemia without coma (principal); Z79.899 Other long term (current) drug therapy; Z79.4 Long term (current) use of insulin; I10 Essential (primary) hypertension; F32.9 Major depressive disorder, single episode, unspecified; F41.9 Anxiety disorder, unspecified | CPT/HCPCS: 36416; 99284 ==

== ENCOUNTER 2022-03-12 10:43 | Inpatient (IN) | payer MEDICARE, OTHER ==
[~2022-03-12 10:43] MED LIST changes: -Fentanyl 100 MCG/2 ML VIAL ONE; +Iopamidol-370 76% 500 ML 1 ML ONE; -Midazolam HCl 2 mg/2 ml Vial ONE; -Piperacillin/Tazobactam 3.375 GM in Sodium Chloride 0.9% 100 ML IVPB SCH; -Propofol 500 MG/50 ML VIAL ONE
[2022-03-12 12:02] LABS: #Eosinphils 0.1 thou/uL (0.0-0.7); #Monocytes 0.8 thou/uL (0.11-0.59); #Neutrophils 5.1 thou/uL (1.40-6.50); %Basophils 0.5 % (0.0-1.0); %Eosinophils 1.4 % (0.0-10.0); %Monocytes 9.3 % (0.0-10.0); %Neutrophils 63.7 % (42.0-75.0); Hemoglobin 5.3 g/dL (12.0-16.0); Mean Corpuscular HGB CONC 25.9 g/dL (32.0-36.0); Mean Corpuscular Hemoglobin 15.4 pg (27.0-31.0); Mean Corpuscular Volume 59.3 fl (78.0-98.0); Mean Platelet Volume 5.2 fL (7.4-10.4); Platelet Count 382 10x3/uL (130-400); Red Blood Cell (RBC) Count 3.45 mill/uL (4.20-5.40); Reflex for Review?? YES; White Blood Cell (WBC) Count 8.1 10x3/uL (4.8-10.8)
[2022-03-12 12:11] LABS: ALT (SGPT) 9 U/L (8-55); AST (SGOT) 12 U/L (5-34); Albumin 2.7 g/dL (3.4-4.8); Alkaline Phosphatase 104 U/L (40-110); Anion Gap 9 mmol/L (10-20); BUN (Urea Nitrogen) 16 mg/dL (9.8-20.1); Bilirubin, Total 0.5 mg/dL (0.2-1.2); CK (CPK) 97 U/L (29-168); Calc. Creatinine Clearance 0 mL/min (70-130); Calcium 8.4 mg/dL (7.8-10.44); Carbon Dioxide 27 mmol/L (23-31); Chloride 111 mmol/L (98-107); Estimated GFR 67; Globulin 4.1 g/dL (2.4-3.5); Glucose 74 mg/dL (80-115); Lipase 16 U/L (8-78); Protein, Total 6.8 g/dL (5.8-8.1); Sodium 143 mmol/L (136-145)
[2022-03-12 12:34] LABS: Hypochromia MODERATE=16-30 cells (100X) (0-5/hpf); MDiff Complete? YES; Microcytosis MARKED = >30 cells (100X) (0-5/hpf); Ovalocytes SLIGHT = 2-5 cells (100X) (0-1/hpf); Platelet Morphology Comment Appears Adequate; Polychromasia MODERATE = 3-4 cells (100X) (0-2/hpf); Target Cells SLIGHT = 2-5 cells (100X) (0-1/hpf)
[2022-03-12 13:06] LABS: SARS-CoV-2 NAA Rapid Test DETECTED (NotDetected)
[2022-03-12] MEDS ORDERED: Acetaminophen 325 MG TAB PO PRN (14:42)
[2022-03-12] MEDS ORDERED: Dextrose 5% in Water 1,000 ML IV PRN (14:49)
[2022-03-12] MEDS ORDERED: HumaLOG 300 UNITS/3 ML VIAL SC PRN (14:49)
[2022-03-12] MEDS ORDERED: Dextrose 50% Abboject 50 ML SYRINGE SLOW IVP PRN (14:49)
[2022-03-12] MEDS ORDERED: Furosemide 20 MG/2 ML VIAL SLOW IVP SCH (15:00)
[2022-03-12 15:52] VITALS: BMI 30.6
[2022-03-12 18:05] LABS: Iron Binding Capacity, Total 354 mcg/dL (265-497)
[2022-03-12 18:06] LABS: Iron 58 ug/dL (50-170)
[2022-03-12] MEDS: Lisinopril 10 MG TAB PO SCH (20:59)
[2022-03-12] MEDS: Pantoprazole 40 MG VIAL IVP SCH (21:00)
[2022-03-13] MEDS ORDERED: GUAIFENESIN SF SOLN 200 MG/10 ML UDCUP PO PRN (02:06)
[2022-03-13 02:15] LABS: #Eosinphils 0.1 thou/uL (0.0-0.7); #Monocytes 0.7 thou/uL (0.11-0.59); #Neutrophils 6.1 thou/uL (1.40-6.50); %Basophils 0.5 % (0.0-1.0); %Lymphocytes 22.6 % (21.0-51.0); %Monocytes 7.9 % (0.0-10.0); %Neutrophils 67.9 % (42.0-75.0); Hemoglobin 8.1 g/dL (12.0-16.0); Mean Corpuscular HGB CONC 28.6 g/dL (32.0-36.0); Mean Corpuscular Hemoglobin 18.7 pg (27.0-31.0); Mean Corpuscular Volume 65.5 fl (78.0-98.0); Mean Platelet Volume 5.1 fL (7.4-10.4); Platelet Count 353 10x3/uL (130-400); RBC Distribution Width 24.7 % (11.5-14.5); Red Blood Cell (RBC) Count 4.33 mill/uL (4.20-5.40)
[2022-03-13] MEDS ORDERED: diphenhydrAMINE 25 MG CAP PO SCH (02:15)
[2022-03-13 06:15] LABS: ALT (SGPT) 9 U/L (8-55); AST (SGOT) 13 U/L (5-34); Albumin 2.5 g/dL (3.4-4.8); Alkaline Phosphatase 94 U/L (40-110); Anion Gap 9 mmol/L (10-20); BUN (Urea Nitrogen) 15 mg/dL (9.8-20.1); Bilirubin, Total 1.5 mg/dL (0.2-1.2); Calc. Creatinine Clearance 61 mL/min (70-130); Calcium 8.1 mg/dL (7.8-10.44); Carbon Dioxide 27 mmol/L (23-31); Chloride 110 mmol/L (98-107); Estimated GFR 63; Globulin 3.5 g/dL (2.4-3.5); Glucose 105 mg/dL (80-115); Potassium 3.9 mmol/L (3.5-5.1); Sodium 142 mmol/L (136-145)
[2022-03-13 06:38] LABS: CEA, Serum 4.7 ng/mL (< or = 5.0); Thyroid Stimulating Hormone 0.7276 uIU/mL (0.35-4.94)
[2022-03-13 08:53] LABS: Hemoglobin 7.4 g/dL (12.0-16.0); Mean Corpuscular HGB CONC 29.3 g/dL (32.0-36.0); Mean Corpuscular Hemoglobin 19.4 pg (27.0-31.0); Mean Corpuscular Volume 66.2 fl (78.0-98.0); Mean Platelet Volume 5.4 fL (7.4-10.4); Platelet Count 341 10x3/uL (130-400); RBC Distribution Width 24.2 % (11.5-14.5); Red Blood Cell (RBC) Count 3.81 mill/uL (4.20-5.40); White Blood Cell (WBC) Count 7.4 10x3/uL (4.8-10.8)
[2022-03-13] MEDS: Pantoprazole 40 MG VIAL IVP SCH ×2 (08:53→21:11)
[2022-03-13 08:54] LABS: #Basophils 0.1 thou/uL (0.0-0.2); #Eosinphils 0.1 thou/uL (0.0-0.7); #Lymphocytes 1.9 thou/uL (1.20-3.40); #Monocytes 0.7 thou/uL (0.11-0.59); #Neutrophils 4.7 thou/uL (1.40-6.50); %Basophils 0.8 % (0.0-1.0); %Eosinophils 1.5 % (0.0-10.0); %Lymphocytes 25.2 % (21.0-51.0); %Monocytes 9.5 % (0.0-10.0)
[2022-03-13] MEDS: Lisinopril 10 MG TAB PO SCH ×2 (08:54→21:10)
[2022-03-13] MEDS: Sodium Chloride 0.9% 1,000 ML IV SCH (08:54)
[2022-03-13 11:15] LABS: Anisocytosis MODERATE=16-30 cells (100X) (0-5/hpf); Hypochromia MODERATE=16-30 cells (100X) (0-5/hpf); MDiff Complete? YES; Microcytosis MODERATE=15-30 cells (100X) (0-5/hpf); Platelet Morphology Comment Appears Adequate; Polychromasia MODERATE = 3-4 cells (100X) (0-2/hpf)
[2022-03-13 16:13] LABS: #Basophils 0.1 thou/uL (0.0-0.2); #Eosinphils 0.2 thou/uL (0.0-0.7); #Lymphocytes 1.6 thou/uL (1.20-3.40); #Monocytes 0.7 thou/uL (0.11-0.59); #Neutrophils 4.9 thou/uL (1.40-6.50); %Basophils 0.7 % (0.0-1.0); %Eosinophils 2.1 % (0.0-10.0); %Lymphocytes 21.1 % (21.0-51.0); %Monocytes 9.5 % (0.0-10.0); %Neutrophils 66.6 % (42.0-75.0); Hemoglobin 8.1 g/dL (12.0-16.0); Mean Corpuscular HGB CONC 29.9 g/dL (32.0-36.0); Mean Corpuscular Hemoglobin 19.5 pg (27.0-31.0); Mean Corpuscular Volume 65.3 fl (78.0-98.0); Mean Platelet Volume 5.1 fL (7.4-10.4); Platelet Count 310 10x3/uL (130-400); RBC Distribution Width 24.8 % (11.5-14.5); Red Blood Cell (RBC) Count 4.12 mill/uL (4.20-5.40); White Blood Cell (WBC) Count 7.4 10x3/uL (4.8-10.8)
[2022-03-14] MEDS: Sodium Chloride 0.9% 1,000 ML IV SCH (04:54)
[2022-03-14] MEDS ORDERED: Polyethylene Glycol 3350 17 GM Packet PO PRN (07:44)
[2022-03-14] MEDS: Pantoprazole 40 MG VIAL IVP SCH ×2 (09:43→20:57)
[2022-03-14] MEDS: Lisinopril 10 MG TAB PO SCH ×2 (09:43→20:58)
[2022-03-14] MEDS ORDERED: GoLYTELY 4,000 ml Bottle PO SCH (17:30)
[2022-03-14] MEDS: Amlodipine 10 MG TAB PO SCH (20:57)
[2022-03-15] MEDS: Pantoprazole 40 MG VIAL IVP SCH ×2 (09:15→21:44)
[2022-03-15] MEDS: Lisinopril 10 MG TAB PO SCH ×2 (09:15→21:43)
[2022-03-15] MEDS ORDERED: PROPOFOL 200 MG/20 ML VIAL ONE (14:22)
[2022-03-15] MEDS ORDERED: Glycopyrrolate 0.2 MG/ML 5 ML SYRINGE ONE (14:22)
[2022-03-15] MEDS: Amlodipine 10 MG TAB PO SCH (21:43)
[2022-03-15 22:16] LABS: #Basophils 0.1 thou/uL (0.0-0.2); #Eosinphils 0.1 thou/uL (0.0-0.7); #Monocytes 0.7 thou/uL (0.11-0.59); #Neutrophils 4.3 thou/uL (1.40-6.50); %Basophils 0.9 % (0.0-1.0); %Eosinophils 1.1 % (0.0-10.0); %Lymphocytes 16.5 % (21.0-51.0); %Monocytes 10.6 % (0.0-10.0); Anisocytosis MODERATE=16-30 cells (100X) (0-5/hpf); Band 1 % (5-11); Eosinophils 1 % (0-10); Hemoglobin 8.1 g/dL (12.0-16.0); Hypochromia MODERATE=16-30 cells (100X) (0-5/hpf); Large Platelets SLIGHT; Lymphocytes 20 % (21-51); MDiff Complete? YES; Mean Corpuscular HGB CONC 29.6 g/dL (32.0-36.0); Mean Corpuscular Hemoglobin 19.5 pg (27.0-31.0); Mean Corpuscular Volume 65.7 fl (78.0-98.0); Mean Platelet Volume 5.2 fL (7.4-10.4); Microcytosis MODERATE=15-30 cells (100X) (0-5/hpf); Monocytes 2 % (0-10); Neutrophil 76 % (42-75); Ovalocytes SLIGHT = 2-5 cells (100X) (0-1/hpf); Platelet Count 357 10x3/uL (130-400); Platelet Morphology Comment Appears Adequate; Polychromasia SLIGHT = 2-3 cells (100X) (0-2/hpf); RBC Distribution Width 26.3 % (11.5-14.5); Red Blood Cell (RBC) Count 4.14 mill/uL (4.20-5.40); Target Cells MODERATE= 6-15 cells (100X) (0-1/hpf); White Blood Cell (WBC) Count 6.1 10x3/uL (4.8-10.8)
[2022-03-16] MEDS: Lisinopril 10 MG TAB PO SCH ×2 (08:55→20:54)
[2022-03-16] MEDS: Pantoprazole 40 MG VIAL IVP SCH ×2 (08:56→20:54)
[2022-03-16] MEDS ORDERED: Furosemide 40 MG/4 ML VIAL SLOW IVP SCH (09:15)
[2022-03-16] MEDS: Amlodipine 10 MG TAB PO SCH (20:53)
[2022-03-17 08:26] LABS: ALT (SGPT) 11 U/L (8-55); AST (SGOT) 12 U/L (5-34); Albumin 2.3 g/dL (3.4-4.8); Alkaline Phosphatase 88 U/L (40-110); Anion Gap 12 mmol/L (10-20); BUN (Urea Nitrogen) 13 mg/dL (9.8-20.1); Bilirubin, Total 0.9 mg/dL (0.2-1.2); Calc. Creatinine Clearance 56 mL/min (70-130); Calcium 8.4 mg/dL (7.8-10.44); Carbon Dioxide 26 mmol/L (23-31); Chloride 107 mmol/L (98-107); Estimated GFR 56; Globulin 3.6 g/dL (2.4-3.5); Glucose 140 mg/dL (80-115); Potassium 3.5 mmol/L (3.5-5.1); Protein, Total 5.9 g/dL (5.8-8.1); Sodium 141 mmol/L (136-145)
[2022-03-17 08:34] LABS: Hemoglobin 7.3 g/dL (12.0-16.0); Mean Corpuscular HGB CONC 28.4 g/dL (32.0-36.0); Mean Corpuscular Volume 66.8 fl (78.0-98.0); RBC Distribution Width 26.8 % (11.5-14.5); Red Blood Cell (RBC) Count 3.87 mill/uL (4.20-5.40)
[2022-03-17] MEDS: Lisinopril 10 MG TAB PO SCH ×2 (11:08→20:46)
[2022-03-17 11:49] LABS: #Eosinphils 0.1 thou/uL (0.0-0.7); #Lymphocytes 1.3 thou/uL (1.20-3.40); #Monocytes 0.9 thou/uL (0.11-0.59); #Neutrophils 5.1 thou/uL (1.40-6.50); %Basophils 0.4 % (0.0-1.0); %Eosinophils 1.2 % (0.0-10.0); %Lymphocytes 17.1 % (21.0-51.0); %Monocytes 12.2 % (0.0-10.0); Anisocytosis SLIGHT = 6-15 cells (100X) (0-5/hpf); Hypochromia SLIGHT = 6-15 cells (100X) (0-5/hpf); MDiff Complete? YES; Mean Platelet Volume 5.6 fL (7.4-10.4); Platelet Count 301 10x3/uL (130-400); Platelet Morphology Comment Appears Adequate; White Blood Cell (WBC) Count 7.4 10x3/uL (4.8-10.8)
[2022-03-17] MEDS: Amlodipine 10 MG TAB PO SCH (20:46)
[2022-03-18 07:32] LABS: Hemoglobin 8.1 g/dL (12.0-16.0); Mean Corpuscular HGB CONC 29.9 g/dL (32.0-36.0); Mean Corpuscular Hemoglobin 20.5 pg (27.0-31.0); Mean Corpuscular Volume 68.6 fl (78.0-98.0); Mean Platelet Volume 5.3 fL (7.4-10.4); Platelet Count 289 10x3/uL (130-400); RBC Distribution Width 25.8 % (11.5-14.5); Red Blood Cell (RBC) Count 3.94 mill/uL (4.20-5.40); White Blood Cell (WBC) Count 6.8 10x3/uL (4.8-10.8)
[2022-03-18 08:22] LABS: #Eosinphils 0.1 thou/uL (0.0-0.7); #Lymphocytes 1.6 thou/uL (1.20-3.40); #Monocytes 0.9 thou/uL (0.11-0.59); #Neutrophils 4.1 thou/uL (1.40-6.50); %Basophils 0.4 % (0.0-1.0); %Lymphocytes 24.1 % (21.0-51.0); %Monocytes 13.7 % (0.0-10.0); %Neutrophils 59.8 % (42.0-75.0); Hypochromia SLIGHT = 6-15 cells (100X) (0-5/hpf); MDiff Complete? YES; Microcytosis MODERATE=15-30 cells (100X) (0-5/hpf); Ovalocytes SLIGHT = 2-5 cells (100X) (0-1/hpf); Polychromasia SLIGHT = 2-3 cells (100X) (0-2/hpf)
[2022-03-18] MEDS: Lisinopril 10 MG TAB PO SCH (09:15)
[2022-03-18] MEDS ORDERED: Regadenoson 0.4 MG/5 ML SYRINGE ONE (09:46)
[2022-03-18 19:50] VITALS: BP 126/60; TEMP 96.6
== END 2022-03-18 17:27 | disposition home or self-care (01) | DRG 374 ==
LOC: ERS 10:43 → ERHOLD 12:58 → 2NO 15:25
PROVIDERS: ADMIT Hospitalist; ATTEND Internal Medicine
PROC: 8E0ZXY6 Isolation (ICD-10-PCS; principal; 2022-03-12)
PROC: 30233N1 Transfusion of Nonautologous Red Blood Cells into Peripheral Vein, Percutaneous Approach (ICD-10-PCS; 2022-03-12)
PROC: 0DJ08ZZ Inspection of Upper Intestinal Tract, Via Natural or Artificial Opening Endoscopic (ICD-10-PCS; 2022-03-15)
PROC: 0DBH8ZX Excision of Cecum, Via Natural or Artificial Opening Endoscopic, Diagnostic (ICD-10-PCS; 2022-03-15)
PROC: 0DBM8ZZ Excision of Descending Colon, Via Natural or Artificial Opening Endoscopic (ICD-10-PCS; 2022-03-15)
PROC: 0DBL8ZZ Excision of Transverse Colon, Via Natural or Artificial Opening Endoscopic (ICD-10-PCS; 2022-03-15)
DX: C18.0 Malignant neoplasm of cecum (principal); U07.1 COVID-19; J90 Pleural effusion, not elsewhere classified; I13.0 Hypertensive heart and chronic kidney disease with heart failure and stage 1 through stage 4 chronic kidney disease, or unspecified chronic kidney disease; E11.51 Type 2 diabetes mellitus with diabetic peripheral angiopathy without gangrene; D50.9 Iron deficiency anemia, unspecified; E11.65 Type 2 diabetes mellitus with hyperglycemia; D12.3 Benign neoplasm of transverse colon; E66.01 Morbid (severe) obesity due to excess calories; D12.4 Benign neoplasm of descending colon; N18.32 Chronic kidney disease, stage 3b; E11.22 Type 2 diabetes mellitus with diabetic chronic kidney disease; Z86.73 Personal history of transient ischemic attack (TIA), and cerebral infarction without residual deficits; Z89.512 Acquired absence of left leg below knee; Z89.431 Acquired absence of right foot; Z79.899 Other long term (current) drug therapy; Z79.82 Long term (current) use of aspirin; Z88.5 Allergy status to narcotic agent; Z91.14 Patient's other noncompliance with medication regimen; Z79.84 Long term (current) use of oral hypoglycemic drugs; Z98.890 Other specified postprocedural states; Z79.4 Long term (current) use of insulin; Z90.49 Acquired absence of other specified parts of digestive tract; Z68.29 Body mass index [BMI] 29.0-29.9, adult
CPT/HCPCS: 36415; 36416; 36430; 71045; 71250; 74177; 78452; 80053; 82274; 82378; 82550; 82607; 82728; 83540; 83550; 83605; 83690; 83880; 84443; 84484; 85025; 85060; 86850; 86900; 86901; 87040; 88305; 93005; 93017; 93306; A9500; C9113; J1650; J1815; J1940; J2704; J2785; J7050; P9016; Q9967

== ENCOUNTER 2022-03-21 11:34 | Inpatient (IN) | payer OTHER ==
[2022-03-21 12:29] LABS: #Eosinphils 0.1 thou/uL (0.0-0.7); #Lymphocytes 0.8 thou/uL (1.20-3.40); #Monocytes 0.6 thou/uL (0.11-0.59); #Neutrophils 5.4 thou/uL (1.40-6.50); %Basophils 0.2 % (0.0-1.0); %Eosinophils 1.2 % (0.0-10.0); %Lymphocytes 11.5 % (21.0-51.0); %Monocytes 8.4 % (0.0-10.0); %Neutrophils 78.8 % (42.0-75.0); Hemoglobin 9.3 g/dL (12.0-16.0); Mean Corpuscular HGB CONC 30.8 g/dL (32.0-36.0); Mean Corpuscular Hemoglobin 21.2 pg (27.0-31.0); Mean Platelet Volume 5.5 fL (7.4-10.4); Platelet Count 285 10x3/uL (130-400); RBC Distribution Width 26.2 % (11.5-14.5); Red Blood Cell (RBC) Count 4.38 mill/uL (4.20-5.40); White Blood Cell (WBC) Count 6.9 10x3/uL (4.8-10.8)
[2022-03-21 12:42] LABS: Prothrombin Time 13.8 sec (12.0-14.7)
[2022-03-21 12:44] LABS: ALT (SGPT) 11 U/L (8-55); AST (SGOT) 16 U/L (5-34); Albumin 2.6 g/dL (3.4-4.8); Alkaline Phosphatase 94 U/L (40-110); Anion Gap 9 mmol/L (10-20); BUN (Urea Nitrogen) 14 mg/dL (9.8-20.1); Bilirubin, Total 0.6 mg/dL (0.2-1.2); CK (CPK) 81 U/L (29-168); Calc. Creatinine Clearance 0 mL/min (70-130); Calcium 8.9 mg/dL (7.8-10.44); Carbon Dioxide 25 mmol/L (23-31); Chloride 110 mmol/L (98-107); Estimated GFR 84; Globulin 4.1 g/dL (2.4-3.5); Glucose 59 mg/dL (80-115); Potassium 3.3 mmol/L (3.5-5.1); Protein, Total 6.7 g/dL (5.8-8.1); Sodium 141 mmol/L (136-145)
[2022-03-21 12:52] LABS: Anisocytosis MODERATE=16-30 cells (100X) (0-5/hpf); Hypochromia SLIGHT = 6-15 cells (100X) (0-5/hpf); MDiff Complete? YES; Microcytosis SLIGHT = 6-15 cells (100X) (0-5/hpf); Ovalocytes SLIGHT = 2-5 cells (100X) (0-1/hpf); Platelet Morphology Comment Appears Adequate; Polychromasia SLIGHT = 2-3 cells (100X) (0-2/hpf); Small Platelets SLIGHT; Target Cells MODERATE= 6-15 cells (100X) (0-1/hpf)
[2022-03-21 14:04] LABS: Bacteria/HPF 4+ HPF (None Seen); Bilirubin Negative (Negative); Blood, Urine Negative (Negative); Glucose, Urine (Dipstick) Normal (Negative); Ketone, Urine Negative (Negative); Leukocyte 75 Leu/uL (Negative); Nitrite Negative (Negative); Protein, Urine (Dipstick) 200 mg/dL (Neg-Trace); RBC/HPF 0-3 HPF (0-3); Specific Gravity, Urine 1.011 (1.002-1.036); Squamous Epithelial 0-3 HPF (0-3); pH, Urine 6.5 (5.0-9.0)
[2022-03-21 14:05] LABS: Clarity Cloudy (Clear)
[2022-03-21] MEDS ORDERED: cefTRIAXone\\ROCEPHIN 2 GM VIAL ONE (14:35)
[2022-03-21 17:52] VITALS: BMI 29.0
[2022-03-21] MEDS ORDERED: Dextrose 50% Abboject 50 ML SYRINGE SLOW IVP PRN (18:04)
[2022-03-21] MEDS ORDERED: Dextrose 5% in Water 1,000 ML IV PRN (18:04)
[2022-03-21] MEDS ORDERED: Ondansetron ODT 4 MG TAB PO PRN (18:04)
[2022-03-21] MEDS ORDERED: HumaLOG 300 UNITS/3 ML VIAL SC PRN (18:04)
[2022-03-21] MEDS ORDERED: Ondansetron PF 4 MG/2 ML Vial IVP PRN (18:04)
[2022-03-21] MEDS ORDERED: Potassium Chloride 20 MEQ TAB PO SCH (18:15)
[2022-03-21] MEDS ORDERED: Amlodipine 10 MG TAB PO SCH (18:45)
[2022-03-21] MEDS ORDERED: hydrALAZINE 20 MG/ML VIAL SLOW IVP PRN (18:45)
[2022-03-21] MEDS ORDERED: Lisinopril/Hydrochlorothiazide 20/25 mg Tablet PO SCH (19:00)
[2022-03-21] MEDS: Dextrose 5% in Water 1,000 ML IV SCH (19:37)
[2022-03-21] MEDS: Famotidine 20 MG TAB PO SCH (19:53)
[2022-03-21] MEDS ORDERED: Insulin Glargine 30 UNITS/0.3 ML VIAL SC SCH (21:00)
[2022-03-22] MEDS: Acetaminophen 325 MG TAB PO PRN ×2 (01:40→08:51)
[2022-03-22 07:53] LABS: Hemoglobin 8.7 g/dL (12.0-16.0); Mean Corpuscular Volume 68.9 fl (78.0-98.0); Mean Platelet Volume 5.2 fL (7.4-10.4); Platelet Count 303 10x3/uL (130-400); RBC Distribution Width 26.5 % (11.5-14.5); Red Blood Cell (RBC) Count 4.36 mill/uL (4.20-5.40); White Blood Cell (WBC) Count 7.2 10x3/uL (4.8-10.8)
[2022-03-22 07:54] LABS: #Eosinphils 0.1 thou/uL (0.0-0.7); #Lymphocytes 1.4 thou/uL (1.20-3.40); #Monocytes 0.7 thou/uL (0.11-0.59); %Basophils 0.6 % (0.0-1.0); %Eosinophils 1.7 % (0.0-10.0); %Lymphocytes 18.6 % (21.0-51.0); %Monocytes 9.8 % (0.0-10.0); %Neutrophils 69.3 % (42.0-75.0)
[2022-03-22 08:07] LABS: Anion Gap 7 mmol/L (10-20); BUN (Urea Nitrogen) 13 mg/dL (9.8-20.1); Calc. Creatinine Clearance 68 mL/min (70-130); Calcium 8.6 mg/dL (7.8-10.44); Carbon Dioxide 26 mmol/L (23-31); Chloride 108 mmol/L (98-107); Estimated GFR 73; Glucose 161 mg/dL (80-115); Potassium 4.1 mmol/L (3.5-5.1); Sodium 137 mmol/L (136-145)
[2022-03-22] MEDS: Amlodipine 10 MG TAB PO SCH (08:50)
[2022-03-22] MEDS: Lisinopril/Hydrochlorothiazide 20/25 mg Tablet PO SCH (08:50)
[2022-03-22] MEDS: Famotidine 20 MG TAB PO SCH ×2 (08:51→20:46)
[2022-03-22] MEDS ORDERED: Insulin Glargine 30 UNITS/0.3 ML VIAL SC SCH (09:00)
[2022-03-22] MEDS ORDERED: traMADol HCl 50 MG TAB PO PRN (09:05)
[2022-03-22 09:29] LABS: Hemoglobin A1c 5.6 % (4.0-6.0)
[2022-03-22 10:03] LABS: Band 2 % (5-11); Eosinophils 2 % (0-10); Hypochromia MODERATE=16-30 cells (100X) (0-5/hpf); Lymphocytes 14 % (21-51); MDiff Complete? YES; Microcytosis MODERATE=15-30 cells (100X) (0-5/hpf); Monocytes 10 % (0-10); Neutrophil 72 % (42-75); Platelet Morphology Comment Appears Adequate; Polychromasia SLIGHT = 2-3 cells (100X) (0-2/hpf)
[2022-03-22] MEDS ORDERED: Naproxen 500 MG TAB PO PRN (10:13)
[2022-03-22] MEDS: HumaLOG 300 UNITS/3 ML VIAL SC PRN ×2 (11:53→16:57)
[2022-03-22] MEDS: Dextrose 5% in Water 1,000 ML IV SCH (12:54)
[2022-03-22 14:25] LABS: Iron 32 ug/dL (50-170); Iron Binding Capacity, Total 288 mcg/dL (265-497)
[2022-03-22] MEDS ORDERED: cefTRIAXone\\ROCEPHIN 1 GM in Sodium Chloride 0.9% 100 ML IVPB SCH (15:00)
[2022-03-23 05:19] VITALS: TEMP 98.9
[2022-03-23 07:48] VITALS: BP 161/88
[2022-03-23] MEDS: Amlodipine 10 MG TAB PO SCH (08:27)
[2022-03-23] MEDS: Famotidine 20 MG TAB PO SCH (08:27)
[2022-03-23] MEDS: Lisinopril/Hydrochlorothiazide 20/25 mg Tablet PO SCH (08:39)
== END 2022-03-23 10:49 | disposition home or self-care (01) | DRG 872 ==
LOC: ERS 11:34 → T4-A 17:39
PROVIDERS: ADMIT Internal Medicine; ATTEND Internal Medicine
DX: A41.9 Sepsis, unspecified organism (principal); N39.0 Urinary tract infection, site not specified; C18.9 Malignant neoplasm of colon, unspecified; C79.9 Secondary malignant neoplasm of unspecified site; Z20.822 Contact with and (suspected) exposure to COVID-19; E11.649 Type 2 diabetes mellitus with hypoglycemia without coma; S42.031A Displaced fracture of lateral end of right clavicle, initial encounter for closed fracture; I10 Essential (primary) hypertension; D63.8 Anemia in other chronic diseases classified elsewhere; E11.40 Type 2 diabetes mellitus with diabetic neuropathy, unspecified; I50.9 Heart failure, unspecified; I11.0 Hypertensive heart disease with heart failure; E87.6 Hypokalemia; W18.30XA Fall on same level, unspecified, initial encounter; F41.9 Anxiety disorder, unspecified; F32.A Depression, unspecified; Z88.5 Allergy status to narcotic agent; Z89.612 Acquired absence of left leg above knee; Z79.899 Other long term (current) drug therapy; Z79.84 Long term (current) use of oral hypoglycemic drugs; Z90.49 Acquired absence of other specified parts of digestive tract; Z89.431 Acquired absence of right foot
CPT/HCPCS: 36415; 36416; 70450; 71045; 80053; 81003; 81015; 82550; 82728; 83036; 83540; 83550; 83605; 83880; 84145; 84484; 85025; 85610; 85730; 87040; 87149; 93005; J0360; J0696; J1650; J1815; J3490; J7070; U0003; U0005

== ENCOUNTER 2022-04-11 12:46 | Outpatient (CLI) | payer OTHER ==
[2022-04-11 14:13] LABS: Anion Gap 19 mmol/L (10-20); BUN (Urea Nitrogen) 50 mg/dL (9.8-20.1); Calc. Creatinine Clearance 0 mL/min (70-130); Calcium 9.4 mg/dL (7.8-10.44); Carbon Dioxide 22 mmol/L (23-31); Chloride 108 mmol/L (98-107); Estimated GFR 27; Glucose 185 mg/dL (80-115); Potassium 5.8 mmol/L (3.5-5.1); Sodium 143 mmol/L (136-145)
[2022-04-11 14:20] LABS: #Basophils 0.1 10x3/uL (0.0-0.2); #Eosinphils 0.1 10x3/uL (0.0-0.5); #Monocytes 0.5 10x3/uL (0.0-1.1); #Neutrophils 5.2 10x3/uL (1.5-8.4); %Eosinophils 1.1 % (0.0-6.0); %Lymphocytes 26.2 % (18.0-47.0); %Monocytes 6.3 % (0.0-10.0); Mean Corpuscular Hemoglobin 20.7 pg (27.0-33.0); Mean Corpuscular Volume 74.2 fl (81.6-98.3); Platelet Count 209 10x3/uL (150-450); Red Blood Cell (RBC) Count 4.34 10x6/uL (3.90-5.03); White Blood Cell (WBC) Count 7.9 10x3/uL (3.5-10.5)
[2022-04-11 14:25] LABS: Anisocytosis MODERATE=16-30 cells (100X) (0-5/hpf); Hypochromia MARKED = >30 cells (100X) (0-5/hpf); Macrocytosis MODERATE=16-30 cells (100X) (0-5/hpf); Microcytosis MODERATE=15-30 cells (100X) (0-5/hpf); Poikilocytosis SLIGHT = 6-15 cells (100X) (0-5/hpf)
[2022-04-11 14:26] LABS: Target Cells SLIGHT = 2-5 cells (100X) (0-1/hpf)
[2022-04-11 16:33] LABS: Hemoglobin A1c 6.2 % (4.0-6.0)
== END 2022-04-11 12:47 | disposition home or self-care (01) ==
LOC: LABBT 12:46
PROVIDERS: ATTEND Surgery
DX: Z01.812 Encounter for preprocedural laboratory examination (principal); C18.9 Malignant neoplasm of colon, unspecified
CPT/HCPCS: 80048; 83036; 85025

== ENCOUNTER 2022-04-11 13:00 | Inpatient (IN) | payer OTHER ==
[2022-04-12 12:47] VITALS: BMI 24.5
[2022-04-16 08:06] LABS: Anion Gap 14 mmol/L (10-20); BUN (Urea Nitrogen) 36 mg/dL (9.8-20.1); Calc. Creatinine Clearance 30 mL/min (70-130); Calcium 9.2 mg/dL (7.8-10.44); Carbon Dioxide 19 mmol/L (23-31); Chloride 112 mmol/L (98-107); Estimated GFR 33; Glucose 119 mg/dL (80-115); Potassium 4.2 mmol/L (3.5-5.1); Sodium 141 mmol/L (136-145)
[2022-04-16 08:37] LABS: SARS-CoV-2 NAA Rapid Test DETECTED (NotDetected)
[2022-04-16] MEDS ORDERED: Bupivacaine/Epinephrine 0.25% 30 ML VIAL ONE (09:11)
[2022-04-16] MEDS ORDERED: SUGAMMADEX SODIUM 200 MG/2 ML VIAL ONE (09:47)
[2022-04-16] MEDS ORDERED: Albumin 5% 0 ML ONE (09:47)
[2022-04-16] MEDS ORDERED: fentaNYL PF 100 MCG/2 ML SYRINGE ONE (09:47)
[2022-04-16] MEDS ORDERED: cefOXitin 2 GM VIAL ONE (10:02)
[2022-04-16] MEDS ORDERED: Sodium Chloride 0.9% 100 ML ONE (10:02)
[2022-04-16] MEDS ORDERED: NEOSTIGMINE 3 MG/3 ML SYR 3 MG/3 ML SYRINGE ONE (10:20)
[2022-04-16] MEDS ORDERED: Rocuronium Bromide 10 MG/ML (10ML VIAL) ONE (10:20)
[2022-04-16] MEDS ORDERED: PHENYLEPHRINE-NS 100 MCG/ML 10 ML SYRINGE ONE (10:20)
[2022-04-16] MEDS ORDERED: Dexamethasone 20 MG/5 ML VIAL ONE (10:20)
[2022-04-16] MEDS ORDERED: PROPOFOL 200 MG/20 ML VIAL ONE (10:20)
[2022-04-16] MEDS ORDERED: Lidocaine 1% PF 5 ML VIAL ONE (10:20)
[2022-04-16] MEDS ORDERED: Ondansetron PF 4 MG/2 ML Vial ONE ×2 (10:20→13:16)
[2022-04-16] MEDS ORDERED: Glycopyrrolate 0.2 MG/ML 5 ML SYRINGE ONE (10:20)
[2022-04-16] MEDS ORDERED: diphenhydrAMINE 50 MG/ML VIAL IVP PRN (12:05)
[2022-04-16] MEDS ORDERED: diphenhydrAMINE 25 MG CAP PO PRN (12:05)
[2022-04-16] MEDS ORDERED: Naloxone HCl 0.4 mg/ml Vial IV PRN (12:05)
[2022-04-16] MEDS ORDERED: Promethazine HCl 25 MG/ML VIAL IM PRN ×3 (12:05→12:25)
[2022-04-16] MEDS ORDERED: Ondansetron PF 4 MG/2 ML Vial IVP PRN ×2 (12:05→12:25)
[2022-04-16] MEDS ORDERED: diphenhydrAMINE 50 MG/ML VIAL IM PRN (12:05)
[2022-04-16] MEDS ORDERED: FENTANYL 500 MCG/10 ML VIAL 2,000 MCG in Sodium Chloride 0.9% 60 ML IV PRN (12:05)
[2022-04-16] MEDS ORDERED: Ondansetron HCl/PF 4 MG/2 ML Vial IVP PRN (12:05)
[2022-04-16] MEDS ORDERED: Communication Order-Pharmacy FS SCH (12:15)
[2022-04-16] MEDS ORDERED: Ipratropium/Albuterol 3 ML NEB NEB PRN (12:25)
[2022-04-16] MEDS ORDERED: hydrALAZINE 20 MG/ML VIAL SLOW IVP PRN (12:25)
[2022-04-16] MEDS ORDERED: HumaLOG 300 UNITS/3 ML VIAL SC PRN ×2 (12:25→19:49)
[2022-04-16] MEDS: Sodium Chloride 0.9% 1,000 ML IV SCH ×2 (13:00→21:28)
[2022-04-16] MEDS ORDERED: hydrALAZINE 20 MG/ML VIAL ONE (14:07)
[2022-04-16] MEDS ORDERED: Promethazine HCl 25 MG/ML VIAL ONE (15:01)
[2022-04-16] MEDS: cefOXitin Sodium 1 GM in Sodium Chloride 0.9% 100 ML IVPB SCH (17:49)
[2022-04-16] MEDS ORDERED: Acetaminophen 650 MG Suppository PR PRN (19:39)
[2022-04-16] MEDS ORDERED: Acetaminophen 325 MG TAB PO PRN (19:39)
[2022-04-16] MEDS ORDERED: Albuterol 200 PUFF (6.7GM INHALER) INH PRN (19:39)
[2022-04-16] MEDS ORDERED: Benzonatate 100 MG CAP PO PRN (19:39)
[2022-04-16] MEDS ORDERED: Dextrose 5% in Water 1,000 ML IV PRN (19:49)
[2022-04-16] MEDS ORDERED: Dextrose 50% Abboject 50 ML SYRINGE SLOW IVP PRN (19:49)
[2022-04-16 19:57] LABS: #Monocytes 0.2 thou/uL (0.11-0.59); #Neutrophils 8.5 thou/uL (1.40-6.50); %Basophils 0.2 % (0.0-1.0); %Eosinophils 0.1 % (0.0-10.0); %Lymphocytes 9.9 % (21.0-51.0); %Monocytes 1.6 % (0.0-10.0); %Neutrophils 88.2 % (42.0-75.0); Hemoglobin 7.6 g/dL (12.0-16.0); Mean Corpuscular HGB CONC 31.2 g/dL (32.0-36.0); Mean Corpuscular Hemoglobin 22.6 pg (27.0-31.0); Mean Corpuscular Volume 72.4 fl (78.0-98.0); Mean Platelet Volume 6.4 fL (7.4-10.4); Platelet Count 217 10x3/uL (130-400); RBC Distribution Width 29.4 % (11.5-14.5); Red Blood Cell (RBC) Count 3.38 mill/uL (4.20-5.40); White Blood Cell (WBC) Count 9.7 10x3/uL (4.8-10.8)
[2022-04-16 20:10] LABS: ALT (SGPT) 12 U/L (8-55); AST (SGOT) 16 U/L (5-34); Albumin 3.1 g/dL (3.4-4.8); Alkaline Phosphatase 89 U/L (40-110); Anion Gap 14 mmol/L (10-20); BUN (Urea Nitrogen) 29 mg/dL (9.8-20.1); Bilirubin, Total 0.4 mg/dL (0.2-1.2); CRP (Inflammatory) 1.96 mg/dL (= or < 0.5); Calc. Creatinine Clearance 30 mL/min (70-130); Calcium 8.6 mg/dL (7.8-10.44); Carbon Dioxide 18 mmol/L (23-31); Chloride 115 mmol/L (98-107); Estimated GFR 33; Globulin 3.6 g/dL (2.4-3.5); Glucose 186 mg/dL (80-115); Potassium 4.8 mmol/L (3.5-5.1); Protein, Total 6.7 g/dL (5.8-8.1); Sodium 142 mmol/L (136-145)
[2022-04-16] MEDS ORDERED: Lisinopril 10 MG TAB PO SCH (21:00)
[2022-04-16] MEDS: Famotidine/PF 20 mg/2ml Vial SLOW IVP SCH (21:23)
[2022-04-16] MEDS: Famotidine 20 MG TAB PO SCH (21:28)
[2022-04-17] MEDS: cefOXitin Sodium 1 GM in Sodium Chloride 0.9% 100 ML IVPB SCH (01:54)
[2022-04-17 06:27] LABS: #Lymphocytes 1.6 thou/uL (1.20-3.40); #Monocytes 0.9 thou/uL (0.11-0.59); %Basophils 0.4 % (0.0-1.0); %Monocytes 8.8 % (0.0-10.0); %Neutrophils 75.8 % (42.0-75.0); Hemoglobin 7.5 g/dL (12.0-16.0); Mean Corpuscular HGB CONC 31.3 g/dL (32.0-36.0); Mean Corpuscular Hemoglobin 22.8 pg (27.0-31.0); Mean Corpuscular Volume 72.8 fl (78.0-98.0); Mean Platelet Volume 6.3 fL (7.4-10.4); Platelet Count 230 10x3/uL (130-400); RBC Distribution Width 29.6 % (11.5-14.5); Red Blood Cell (RBC) Count 3.28 mill/uL (4.20-5.40); White Blood Cell (WBC) Count 10.5 10x3/uL (4.8-10.8)
[2022-04-17 06:49] LABS: Hypochromia SLIGHT = 6-15 cells (100X) (0-5/hpf); Microcytosis SLIGHT = 6-15 cells (100X) (0-5/hpf); Polychromasia SLIGHT = 2-3 cells (100X) (0-2/hpf); Target Cells SLIGHT = 2-5 cells (100X) (0-1/hpf)
[2022-04-17 06:53] LABS: Anion Gap 12 mmol/L (10-20); BUN (Urea Nitrogen) 23 mg/dL (9.8-20.1); Calc. Creatinine Clearance 36 mL/min (70-130); Calcium 8.7 mg/dL (7.8-10.44); Carbon Dioxide 18 mmol/L (23-31); Chloride 117 mmol/L (98-107); Estimated GFR 41; Glucose 114 mg/dL (80-115); Potassium 4.4 mmol/L (3.5-5.1); Sodium 143 mmol/L (136-145)
[2022-04-17] MEDS: Amlodipine 10 MG TAB PO SCH (08:46)
[2022-04-17] MEDS: Sodium Chloride 0.9% 1,000 ML IV SCH ×3 (08:46→17:08)
[2022-04-17] MEDS ORDERED: Lisinopril/Hydrochlorothiazide 20/25 mg Tablet PO SCH (09:00)
[2022-04-17] MEDS: Famotidine/PF 20 mg/2ml Vial SLOW IVP SCH (20:36)
[2022-04-17] MEDS: Famotidine 20 MG TAB PO SCH (20:40)
[2022-04-18] MEDS: Sodium Chloride 0.9% 1,000 ML IV SCH (02:29)
[2022-04-18 06:06] LABS: Hemoglobin 7.3 g/dL (12.0-16.0); Mean Corpuscular HGB CONC 31.9 g/dL (32.0-36.0); Mean Corpuscular Hemoglobin 23.6 pg (27.0-31.0); Mean Corpuscular Volume 73.8 fl (78.0-98.0); Mean Platelet Volume 5.7 fL (7.4-10.4); Platelet Count 208 10x3/uL (130-400); RBC Distribution Width 29.3 % (11.5-14.5); Red Blood Cell (RBC) Count 3.09 mill/uL (4.20-5.40); White Blood Cell (WBC) Count 9.2 10x3/uL (4.8-10.8)
[2022-04-18 06:24] LABS: Anion Gap 9 mmol/L (10-20); BUN (Urea Nitrogen) 13 mg/dL (9.8-20.1); Calc. Creatinine Clearance 53 mL/min (70-130); Calcium 8.1 mg/dL (7.8-10.44); Carbon Dioxide 18 mmol/L (23-31); Chloride 119 mmol/L (98-107); Estimated GFR 66; Glucose 96 mg/dL (80-115); Potassium 3.7 mmol/L (3.5-5.1); Sodium 142 mmol/L (136-145)
[2022-04-18] MEDS: Sodium Chloride 0.45% 1,000 ML IV SCH ×2 (09:11→21:33)
[2022-04-18] MEDS: Amlodipine 10 MG TAB PO SCH (09:15)
[2022-04-18] MEDS ORDERED: HYDROcodone/Acetaminophen 5/325 mg Tablet PO PRN ×2 (10:41→10:42)
[2022-04-18] MEDS: Famotidine 20 MG TAB PO SCH (20:15)
[2022-04-18] MEDS: Famotidine/PF 20 mg/2ml Vial SLOW IVP SCH (20:15)
[2022-04-19 06:12] LABS: Hemoglobin 6.9 g/dL (12.0-16.0); Mean Corpuscular HGB CONC 31.4 g/dL (32.0-36.0); Mean Corpuscular Hemoglobin 23.1 pg (27.0-31.0); Mean Corpuscular Volume 73.4 fl (78.0-98.0); Platelet Count 193 10x3/uL (130-400); Red Blood Cell (RBC) Count 2.99 mill/uL (4.20-5.40); White Blood Cell (WBC) Count 9.6 10x3/uL (4.8-10.8)
[2022-04-19 06:25] LABS: Anion Gap 11 mmol/L (10-20); BUN (Urea Nitrogen) 13 mg/dL (9.8-20.1); Calc. Creatinine Clearance 57 mL/min (70-130); Calcium 8.2 mg/dL (7.8-10.44); Carbon Dioxide 19 mmol/L (23-31); Chloride 113 mmol/L (98-107); Estimated GFR 72; Glucose 101 mg/dL (80-115); Potassium 3.8 mmol/L (3.5-5.1); Sodium 139 mmol/L (136-145)
[2022-04-19] MEDS: Lisinopril 20 MG TAB PO SCH (09:37)
[2022-04-19] MEDS: Amlodipine 10 MG TAB PO SCH (09:37)
[2022-04-19] MEDS: Sodium Chloride 0.45% 1,000 ML IV SCH (11:30)
[2022-04-19 19:52] LABS: Hemoglobin 8.5 g/dL (12.0-16.0)
[2022-04-19] MEDS: Famotidine/PF 20 mg/2ml Vial SLOW IVP SCH (22:06)
[2022-04-19] MEDS: Famotidine 20 MG TAB PO SCH (22:06)
[2022-04-20 06:33] LABS: Hemoglobin 8.5 g/dL (12.0-16.0); Mean Corpuscular HGB CONC 30.3 g/dL (32.0-36.0); Mean Corpuscular Volume 75.9 fl (78.0-98.0); Mean Platelet Volume 5.9 fL (7.4-10.4); Platelet Count 230 10x3/uL (130-400); RBC Distribution Width 28.1 % (11.5-14.5); Red Blood Cell (RBC) Count 3.68 mill/uL (4.20-5.40); White Blood Cell (WBC) Count 9.8 10x3/uL (4.8-10.8)
[2022-04-20 06:51] LABS: Anion Gap 13 mmol/L (10-20); BUN (Urea Nitrogen) 13 mg/dL (9.8-20.1); Calc. Creatinine Clearance 56 mL/min (70-130); Calcium 8.5 mg/dL (7.8-10.44); Carbon Dioxide 18 mmol/L (23-31); Chloride 112 mmol/L (98-107); Estimated GFR 71; Glucose 110 mg/dL (80-115); Potassium 3.9 mmol/L (3.5-5.1); Sodium 139 mmol/L (136-145)
[2022-04-20] MEDS: Lisinopril 20 MG TAB PO SCH (09:51)
[2022-04-20] MEDS: Amlodipine 10 MG TAB PO SCH (09:51)
[2022-04-20 12:41] VITALS: BP 123/62; TEMP 97.6
== END 2022-04-20 13:30 | disposition home health service (06) | DRG 329 ==
LOC: SURG A 04-16 06:44 → SJJU 04-16 16:01
PROVIDERS: ADMIT Internal Medicine; ATTEND Surgery
PROC: 0DBF0ZZ Excision of Right Large Intestine, Open Approach (ICD-10-PCS; principal; 2022-04-16)
PROC: 8E0W0CZ Robotic Assisted Procedure of Trunk Region, Open Approach (ICD-10-PCS; 2022-04-16)
PROC: 30233N1 Transfusion of Nonautologous Red Blood Cells into Peripheral Vein, Percutaneous Approach (ICD-10-PCS; 2022-04-19)
DX: C18.2 Malignant neoplasm of ascending colon (principal); U07.1 COVID-19; N17.9 Acute kidney failure, unspecified; E11.40 Type 2 diabetes mellitus with diabetic neuropathy, unspecified; I10 Essential (primary) hypertension; E78.5 Hyperlipidemia, unspecified; E11.51 Type 2 diabetes mellitus with diabetic peripheral angiopathy without gangrene; D64.9 Anemia, unspecified; E87.8 Other disorders of electrolyte and fluid balance, not elsewhere classified; Z88.5 Allergy status to narcotic agent; Z79.899 Other long term (current) drug therapy; Z79.82 Long term (current) use of aspirin; Z86.73 Personal history of transient ischemic attack (TIA), and cerebral infarction without residual deficits; Z87.442 Personal history of urinary calculi; Z98.890 Other specified postprocedural states; Z89.512 Acquired absence of left leg below knee; Z89.421 Acquired absence of other right toe(s)
CPT/HCPCS: 36415; 36416; 36430; 80048; 83880; 85025; 85027; 86140; 86850; 86900; 86901; 88309; J0360; J0694; J1100; J1650; J1815; J2405; J2550; J2704; J3490; J7050; P9016; P9045; S0028; U0002

== ENCOUNTER 2022-04-24 11:00 | Outpatient (CLI) | payer OTHER | END 2022-04-24 11:01 | disposition home or self-care (01) | LOC: PET 11:00 | PROVIDERS: ATTEND Internal Medicine Hematology & Oncology | DX: C18.9 Malignant neoplasm of colon, unspecified (principal); M89.9 Disorder of bone, unspecified | CPT/HCPCS: 78815; A9552 ==

== ENCOUNTER 2023-01-06 08:28 | Outpatient (CLI) | payer OTHER | END 2023-01-06 08:29 | disposition home or self-care (01) | LOC: CT 08:28 | PROVIDERS: ATTEND Internal Medicine Hematology & Oncology | DX: C18.0 Malignant neoplasm of cecum (principal); C50.111 Malignant neoplasm of central portion of right female breast; S32.019A Unspecified fracture of first lumbar vertebra, initial encounter for closed fracture; G95.89 Other specified diseases of spinal cord; Z90.49 Acquired absence of other specified parts of digestive tract | CPT/HCPCS: 71260; 74177; 82565 ==

== ENCOUNTER 2023-07-30 09:48 | Outpatient (CLI) | payer OTHER | END 2023-07-30 09:49 | disposition home or self-care (01) | LOC: BICMAMMO 09:48 | PROVIDERS: ATTEND Family Medicine | DX: Z13.820 Encounter for screening for osteoporosis (principal); M81.0 Age-related osteoporosis without current pathological fracture; Z78.0 Asymptomatic menopausal state | CPT/HCPCS: 77080 ==

== ENCOUNTER 2024-08-11 08:23 | Emergency (ER) | payer OTHER ==
[2024-08-11 08:52] LABS: %Basophils 0.7 % (0.0-1.0); %Eosinophils 0.9 % (0.0-10.0); %Lymphocytes 20.1 % (21.0-51.0); %Monocytes 5.1 % (0.0-10.0); %Neutrophils 72.2 % (42.0-75.0); Hematocrit 31.9 % (36.0-47.0); Hemoglobin 10.7 g/dL (12.0-16.0); Mean Corpuscular Hemoglobin 30.0 pg (27.0-31.0); Mean Corpuscular Volume 89.4 fL (78.0-98.0); Platelet Count 246 10x3/uL (130-400); Red Blood Cell (RBC) Count 3.57 mill/uL (4.20-5.40); White Blood Cell (WBC) Count 8.17 10x3/uL (4.8-10.8)
[2024-08-11 08:53] LABS: #Basophils 0.06 10x3/uL (0.0-0.2); #Eosinophils 0.07 10x3/uL (0.0-0.7); #Monocytes 0.42 10x3/uL (0.11-0.59); #Neutrophils 5.90 10x3/uL (1.40-6.50)
[2024-08-11 09:06] LABS: ALT (SGPT) 14 U/L (Less than 34); AST (SGOT) 23 U/L (11-34); Albumin 2.5 g/dL (3.1-4.5); Alkaline Phosphatase 216 U/L (40-110); Anion Gap 14 mmol/L (10-20); BUN (Urea Nitrogen) 37 mg/dL (9.8-20.1); Bilirubin, Total 0.3 mg/dL (0.3-1.2); Calc. Creatinine Clearance 0 mL/min (70-130); Calcium 7.6 mg/dL (7.8-10.44); Carbon Dioxide 17 mmol/L (23-31); Chloride 116 mmol/L (98-107); Globulin 4.3 g/dL (2.4-3.5); Glucose 289 mg/dL (83-110); Potassium 4.3 mmol/L (3.5-5.1); Sodium 143 mmol/L (136-145)
[2024-08-11 09:12] LABS: Troponin I 0.025 ng/mL (< 0.028)
== END 2024-08-11 10:30 | disposition home or self-care (01) ==
LOC: ERS 08:23
DX: I10 Essential (primary) hypertension (principal); E11.9 Type 2 diabetes mellitus without complications; Z55.6 Problems related to health literacy
CPT/HCPCS: 71045; 80053; 83880; 84484; 85025; 93005

== ENCOUNTER 2024-10-25 15:41 | Inpatient (IN) | payer OTHER ==
[2024-10-25 16:14] VITALS: BMI 32.4
[2024-10-25] MEDS ORDERED: Glycopyrrolate 0.4 MG/ 2 ML VIAL SLOW IVP PRN (16:36)
[2024-10-25] MEDS ORDERED: Bisacodyl 10 MG SUPP PR PRN (16:36)
[2024-10-25] MEDS ORDERED: Scopolamine 1 mg/72 hour Patch TOP PRN (16:45)
[2024-10-25] MEDS: Ondansetron PF 4 MG/2 ML Vial IVP PRN (17:27)
== END 2024-10-25 20:40 | disposition expired | DRG 951 ==
LOC: IMCU/EMU 15:41
PROVIDERS: ADMIT Family Medicine; ATTEND Family Medicine
DX: Z51.5 Encounter for palliative care (principal); N18.6 End stage renal disease; J90 Pleural effusion, not elsewhere classified; N39.0 Urinary tract infection, site not specified; E87.70 Fluid overload, unspecified; I25.10 Atherosclerotic heart disease of native coronary artery without angina pectoris; E11.9 Type 2 diabetes mellitus without complications; I10 Essential (primary) hypertension; Z88.5 Allergy status to narcotic agent; Z98.890 Other specified postprocedural states; Z98.49 Cataract extraction status, unspecified eye; Z90.49 Acquired absence of other specified parts of digestive tract; Z89.421 Acquired absence of other right toe(s); D64.9 Anemia, unspecified
CPT/HCPCS: J2270; J2405